=== PATIENT | female | born 1960 | race Caucasian/White ===

== ENCOUNTER 2016-12-29 14:10 | Inpatient (IN) | payer MEDICAID ==
[2016-12-29] MEDS ORDERED: POTASSIUM CHLORIDE LIQ 20 MEQ UDC PO PRN (16:24)
[2016-12-29] MEDS ORDERED: PHARMACY CONSULT - TPN XX SCH (16:24)
[2016-12-29] MEDS ORDERED: K-LYTE EFFERVESCENT PO PRN (16:24)
[2016-12-29] MEDS ORDERED: K-RIDER 10 MEQ/NS 100 ML 10 MEQ/100 ML BAG IV PRN (16:24)
[2016-12-29] MEDS ORDERED: NS 100 ML IV 100 ML IV ONE (17:07)
[2016-12-29] MEDS ORDERED: FORTAZ or TAZICEF INJ ONE (17:08)
[2016-12-29 17:21] LABS: LYMPHOCYTES # (AUTO) 0.4 X10^3/uL (1.3-2.9); MONOCYTES # (AUTO) 0.1 x10^3/uL (0.3-0.8); RED CELL DISTRIBUTION WIDTH 18.3 % (11.6-16.5)
[2016-12-29 17:25] LABS: ALBUMIN 2.7 g/dL (3.4-5.0); CALCIUM 8.2 mg/dL (8.5-10.1); COR CA(FOR HYPOALB) 9.2 mg/dL (8.5-10.1); CREATININE 1.38 mg/dL (0.55-1.02); TOTAL PROTEIN 7.1 g/dL (6.4-8.2)
[2016-12-29 17:26] LABS: BASOPHILS % (AUTO) 0.4 % (0.2-1.0); EOSINOPHILS % (AUTO) 2.2 % (0.9-2.9); HEMATOCRIT 27.6 % (36.0-47.0); HEMOGLOBIN 9.5 g/dL (12.0-16.0); LYMPHOCYTES % (AUTO) 18.3 % (21.0-51.0); MEAN CORPUSCULAR HEMOGLOBIN 35.2 pg (27.0-34.0); MEAN CORPUSCULAR HGB CONC 34.3 g/dL (33.0-35.0); MEAN CORPUSCULAR VOLUME 102.6 fL (80.0-100.0); MEAN PLATELET VOLUME 10.1 fL (7.4-11.0); NEUTROPHILS # (AUTO) 1.7 x10^3/uL (2.2-4.8); NEUTROPHILS % (AUTO) 74.1 % (42.0-75.0); PLATELET COUNT 128 X10^3/uL (150.0-450.0); RED BLOOD COUNT 2.69 X10^6/uL (3.5-5.4); WHITE BLOOD COUNT 2.3 X10^3/uL (3.6-10.0)
[2016-12-29] MEDS: FORTAZ or TAZICEF INJ 1 GM in NS 50 ML IV + SPIKE MINIBAG* 50 ML IV SCH ×2 (17:40→22:48)
[2016-12-29] MEDS: ALBUMIN HUMAN 25%- 100ML 100 ML IV SCH (17:41)
[2016-12-29] MEDS: K-DUR TAB 20 MEQ PO PRN (17:42)
[2016-12-29] MEDS: TYLENOL 325 MG TAB PO PRN ×2 (17:43→23:10)
[2016-12-29 17:45] LABS: BAND NEUTROPHILS % 1 % (0-10); PLATELET MORPHOLOGY COMMENT NORMAL (NORMAL)
[2016-12-29 17:46] LABS: ANISOCYTOSIS SLIGHT
[2016-12-29] MEDS: LEVAQUIN PREMIX IV 500 MG 500 MG/100 ML BAG IV SCH (17:49)
[2016-12-29] MEDS: NS 1000 ML 1,000 ML IV SCH (19:19)
[2016-12-29] MEDS ORDERED: SILVADENE TOP SCH (21:00)
[2016-12-29] MEDS ORDERED: POTASSIUM CHLORIDE LIQ 20 MEQ UDC PO ONE (22:36)
[2016-12-29 23:28] LABS: BILIRUBIN,URINE NEGATIVE (NEGATIVE); BLOOD/HEMOGLOBIN,URINE 2+ (NEGATIVE); GLUCOSE, URINE NEGATIVE (NEGATIVE); KETONES,URINE NEGATIVE (NEGATIVE); LEUKOCYTE ESTERASE ,URINE 1+ (NEGATIVE); NITRITES,URINE NEGATIVE (NEGATIVE); PROTEIN,URINE 2+ (NEGATIVE); UROBILINOGEN,URINE NORMAL (NORMAL)
[2016-12-30 00:03] LABS: APPEARANCE,URINE CLEAR (CLEAR); BACTERIA,URINE NEGATIVE /HPF (NEGATIVE); COLOR,URINE YELLOW (YELLOW); RBC,URINE 0-3 /HPF (NEGATIVE); SQUAMOUS EPITHELIAL CELL,UR RARE /HPF (NEGATIVE)
[2016-12-30] MEDS: NS 1000 ML 1,000 ML IV SCH (04:36)
[2016-12-30] MEDS: FORTAZ or TAZICEF INJ 1 GM in NS 50 ML IV + SPIKE MINIBAG* 50 ML IV SCH ×3 (05:22→21:59)
[2016-12-30 06:25] LABS: BASOPHILS % (AUTO) 0.4 % (0.2-1.0); EOSINOPHILS % (AUTO) 1.3 % (0.9-2.9); HEMATOCRIT 21.1 % (36.0-47.0); HEMOGLOBIN 7.4 g/dL (12.0-16.0); LYMPHOCYTES # (AUTO) 0.4 X10^3/uL (1.3-2.9); LYMPHOCYTES % (AUTO) 22.6 % (21.0-51.0); MEAN CORPUSCULAR HEMOGLOBIN 36.3 pg (27.0-34.0); MEAN CORPUSCULAR HGB CONC 34.9 g/dL (33.0-35.0); MEAN CORPUSCULAR VOLUME 104.1 fL (80.0-100.0); MEAN PLATELET VOLUME 9.8 fL (7.4-11.0); MONOCYTES # (AUTO) 0.1 x10^3/uL (0.3-0.8); NEUTROPHILS # (AUTO) 1.1 x10^3/uL (2.2-4.8); NEUTROPHILS % (AUTO) 68.7 % (42.0-75.0); PLATELET COUNT 111 X10^3/uL (150.0-450.0); RED BLOOD COUNT 2.02 X10^6/uL (3.5-5.4); RED CELL DISTRIBUTION WIDTH 17.8 % (11.6-16.5)
[2016-12-30 06:30] LABS: ALANINE AMINOTRANSFERASE 15 Units/L (12-78); ALBUMIN 2.5 g/dL (3.4-5.0); ALKALINE PHOSPHATASE 39 Units/L (46-116); ASPARTATE AMINO TRANSFERASE 14 Units/L (15-37); BLOOD UREA NITROGEN 24 mg/dL (7-18); CALCIUM 7.8 mg/dL (8.5-10.1); CARBON DIOXIDE 21.9 mmol/L (21-32); CHLORIDE 105 mmol/L (98-107); COR NA(FOR HYPERGLY) 139 mmol/L (136-145); CREATININE 1.19 mg/dL (0.55-1.02); SODIUM 137 mmol/L (136-145); TOTAL PROTEIN 6.1 g/dL (6.4-8.2); eGFR BLACK RACES > 60 (>60); eGFR NON BLACK RACES 50 (>60)
[2016-12-30 07:28] LABS: WHITE BLOOD COUNT 1.7 X10^3/uL (3.6-10.0)
[2016-12-30 07:29] LABS: BAND NEUTROPHILS % 4 % (0-10)
[2016-12-30 07:30] LABS: ANISOCYTOSIS SLIGHT; HYPOCHROMASIA 1+; PLATELET MORPHOLOGY COMMENT NORMAL (NORMAL)
[2016-12-30] MEDS: TYLENOL 325 MG TAB PO PRN ×3 (08:46→21:59)
[2016-12-30] MEDS: LEVAQUIN PREMIX IV 500 MG 500 MG/100 ML BAG IV SCH (08:47)
[2016-12-30] MEDS: ALBUMIN HUMAN 25%- 100ML 100 ML IV SCH (08:47)
[2016-12-30] MEDS ORDERED: NS 500 ML IV 500 ML IV ONE (09:01)
[2016-12-30] MEDS ORDERED: BENADRYL INJ 50 MG VIAL IVP PRN (09:01)
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
[2016-12-30] MEDS: K-DUR TAB 20 MEQ PO PRN (09:56)
[2016-12-30] MEDS ORDERED: NEUPOGEN SC NR (10:00)
[2016-12-30] MEDS ORDERED: ZANTAC PO PRN (16:21)
[2016-12-30] MEDS ORDERED: XANAX PO PRN (16:21)
[2016-12-30] MEDS ORDERED: PATIENT'S HOME MEDICATION (Ascorbic Acid [Vitamin C] 500 MG) PO SCH (16:30)
[2016-12-30] MEDS ORDERED: CYANOCOBALAMIN PO SCH (16:30)
[2016-12-30] MEDS ORDERED: PALBOCICLIB PO SCH (16:30)
[2016-12-30] MEDS ORDERED: LEXAPRO ONE (18:13)
[2016-12-30] MEDS: CLARITIN PO SCH (18:21)
[2016-12-30] MEDS: LIORESAL PO SCH ×2 (18:22→21:59)
[2016-12-30] MEDS: LEXAPRO PO SCH (18:22)
[2016-12-30] MEDS: LIPOSYN III 20% 250ML 250 ML IV SCH (22:00)
[2016-12-30] MEDS: CLINIMIX 4.25 %/10 % 1,000 ML with MVI INJ (ADULT) 10 ML, TRACE ELEMENTS INJ 10 ML, TPN... IV SCH ×5 (22:00)
[2016-12-30] MEDS: LIPITOR TAB 10 MG PO SCH (22:00)
[2016-12-31] MEDS: CLINIMIX 4.25 %/10 % 1,000 ML with MVI INJ (ADULT) 10 ML, TRACE ELEMENTS INJ 10 ML, TPN... IV SCH ×10 (01:16→18:13)
[2016-12-31] MEDS ORDERED: NS 500 ML IV 500 ML IV ONE (01:36)
[2016-12-31] MEDS: FORTAZ or TAZICEF INJ 1 GM in NS 50 ML IV + SPIKE MINIBAG* 50 ML IV SCH ×3 (05:16→21:46)
[2016-12-31] MEDS: LIORESAL PO SCH ×3 (06:22→21:40)
[2016-12-31 07:24] LABS: BILIRUBIN,URINE NEGATIVE (NEGATIVE); BLOOD/HEMOGLOBIN,URINE 3+ (NEGATIVE); GLUCOSE, URINE 3+ (NEGATIVE); KETONES,URINE NEGATIVE (NEGATIVE); LEUKOCYTE ESTERASE ,URINE 1+ (NEGATIVE); NITRITES,URINE NEGATIVE (NEGATIVE); PROTEIN,URINE 2+ (NEGATIVE); UROBILINOGEN,URINE NORMAL (NORMAL)
[2016-12-31 07:44] LABS: APPEARANCE,URINE CLEAR (CLEAR); COLOR,URINE YELLOW (YELLOW)
[2016-12-31 07:45] LABS: AMORPHOUS SEDIMENT,UR 1+ /HPF (NEGATIVE); BACTERIA,URINE NEGATIVE /HPF (NEGATIVE); HYALINE CASTS, URINE RARE /LPF (NEGATIVE); MUCUS,URINE MODERATE /HPF (NEGATIVE); SQUAMOUS EPITHELIAL CELL,UR RARE /HPF (NEGATIVE)
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
[2016-12-31] MEDS ORDERED: LEXAPRO ONE (08:26)
[2016-12-31] MEDS: LEVAQUIN PREMIX IV 500 MG 500 MG/100 ML BAG IV SCH (08:38)
[2016-12-31] MEDS: ALBUMIN HUMAN 25%- 100ML 100 ML IV SCH (08:39)
[2016-12-31] MEDS: CLARITIN PO SCH (08:39)
[2016-12-31] MEDS: VITAMIN B-12 PO SCH (08:39)
[2016-12-31] MEDS: LEXAPRO PO SCH (08:39)
[2016-12-31] MEDS: VITAMIN C PO SCH (08:39)
[2016-12-31] MEDS: ASPIRIN EC 81 MG PO SCH (08:39)
[2016-12-31 08:46] LABS: BLOOD UREA NITROGEN 17 mg/dL (7-18); CALCIUM 7.9 mg/dL (8.5-10.1); CARBON DIOXIDE 22.5 mmol/L (21-32); CHLORIDE 105 mmol/L (98-107); COR NA(FOR HYPERGLY) 141 mmol/L (136-145); CREATININE 0.97 mg/dL (0.55-1.02); SODIUM 137 mmol/L (136-145); eGFR BLACK RACES > 60 (>60); eGFR NON BLACK RACES > 60 (>60)
[2016-12-31 08:52] LABS: BASOPHILS % (AUTO) 0.3 % (0.2-1.0); EOSINOPHILS % (AUTO) 0.9 % (0.9-2.9); HEMATOCRIT 28.2 % (36.0-47.0); HEMOGLOBIN 9.9 g/dL (12.0-16.0); LYMPHOCYTES # (AUTO) 0.4 X10^3/uL (1.3-2.9); LYMPHOCYTES % (AUTO) 10.4 % (21.0-51.0); MEAN CORPUSCULAR HEMOGLOBIN 34.7 pg (27.0-34.0); MEAN CORPUSCULAR HGB CONC 35.2 g/dL (33.0-35.0); MEAN CORPUSCULAR VOLUME 98.7 fL (80.0-100.0); MEAN PLATELET VOLUME 9.9 fL (7.4-11.0); MONOCYTES # (AUTO) 0.1 x10^3/uL (0.3-0.8); MONOCYTES % (AUTO) 3.4 % (0.0-13.0); NEUTROPHILS # (AUTO) 3.3 x10^3/uL (2.2-4.8); PLATELET COUNT 132 X10^3/uL (150.0-450.0); RED BLOOD COUNT 2.86 X10^6/uL (3.5-5.4); RED CELL DISTRIBUTION WIDTH 22.2 % (11.6-16.5); WHITE BLOOD COUNT 3.9 X10^3/uL (3.6-10.0)
[2016-12-31] MEDS ORDERED: PATIENT'S HOME MEDICATION (Aspirin [Aspirin] 81 MG) PO SCH (09:00)
[2016-12-31 09:06] LABS: BAND NEUTROPHILS % 12 % (0-10)
[2016-12-31 09:07] LABS: ANISOCYTOSIS 2+; PLATELET MORPHOLOGY COMMENT NORMAL (NORMAL)
[2016-12-31 13:55] LABS: ALANINE AMINOTRANSFERASE 17 Units/L (12-78); ALBUMIN 2.5 g/dL (3.4-5.0); ALKALINE PHOSPHATASE 53 Units/L (46-116); ASPARTATE AMINO TRANSFERASE 18 Units/L (15-37); COR CA(FOR HYPOALB) 9.1 mg/dL (8.5-10.1); TOTAL PROTEIN 6.5 g/dL (6.4-8.2)
[2016-12-31] MEDS: K-DUR TAB 20 MEQ PO PRN (18:06)
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
[2016-12-31] MEDS: LIPITOR TAB 10 MG PO SCH (21:40)
[2016-12-31] MEDS: LIPOSYN III 20% 250ML 250 ML IV SCH (21:45)
[2017-01-01 04:36] LABS: ALANINE AMINOTRANSFERASE 16 Units/L (12-78); ALBUMIN 2.4 g/dL (3.4-5.0); ALKALINE PHOSPHATASE 61 Units/L (46-116); ASPARTATE AMINO TRANSFERASE 12 Units/L (15-37); BLOOD UREA NITROGEN 15 mg/dL (7-18); CALCIUM 8.5 mg/dL (8.5-10.1); CARBON DIOXIDE 25.4 mmol/L (21-32); CHLORIDE 108 mmol/L (98-107); COR CA(FOR HYPOALB) 9.8 mg/dL (8.5-10.1); COR NA(FOR HYPERGLY) 145 mmol/L (136-145); CREATININE 0.94 mg/dL (0.55-1.02); SODIUM 140 mmol/L (136-145); TOTAL PROTEIN 6.3 g/dL (6.4-8.2); eGFR BLACK RACES > 60 (>60); eGFR NON BLACK RACES > 60 (>60)
[2017-01-01 04:54] LABS: BASOPHILS % (AUTO) 0.5 % (0.2-1.0); EOSINOPHILS % (AUTO) 1.2 % (0.9-2.9); HEMATOCRIT 26.8 % (36.0-47.0); HEMOGLOBIN 9.3 g/dL (12.0-16.0); LYMPHOCYTES # (AUTO) 0.7 X10^3/uL (1.3-2.9); LYMPHOCYTES % (AUTO) 18.1 % (21.0-51.0); MEAN CORPUSCULAR HEMOGLOBIN 34.6 pg (27.0-34.0); MEAN CORPUSCULAR HGB CONC 34.9 g/dL (33.0-35.0); MEAN CORPUSCULAR VOLUME 99.3 fL (80.0-100.0); MEAN PLATELET VOLUME 10.1 fL (7.4-11.0); MONOCYTES # (AUTO) 0.2 x10^3/uL (0.3-0.8); MONOCYTES % (AUTO) 4.7 % (0.0-13.0); NEUTROPHILS # (AUTO) 2.9 x10^3/uL (2.2-4.8); NEUTROPHILS % (AUTO) 75.5 % (42.0-75.0); PLATELET COUNT 125 X10^3/uL (150.0-450.0); RED CELL DISTRIBUTION WIDTH 21.6 % (11.6-16.5); WHITE BLOOD COUNT 3.8 X10^3/uL (3.6-10.0)
[2017-01-01] MEDS: LIORESAL PO SCH ×3 (05:20→21:13)
[2017-01-01] MEDS: FORTAZ or TAZICEF INJ 1 GM in NS 50 ML IV + SPIKE MINIBAG* 50 ML IV SCH (05:20)
[2017-01-01 05:28] LABS: BAND NEUTROPHILS % 13 % (0-10)
[2017-01-01 05:29] LABS: ANISOCYTOSIS 1+; PLATELET MORPHOLOGY COMMENT NORMAL (NORMAL)
[2017-01-01 06:11] VITALS: BMI 34.7
[2017-01-01] MEDS: CLINIMIX 4.25 %/10 % 1,000 ML with MVI INJ (ADULT) 10 ML, TRACE ELEMENTS INJ 10 ML, TPN... IV SCH ×10 (06:16→06:17)
[2017-01-01] MEDS: HumuLIN R SUBCUT PRN (06:29)
[2017-01-01] MEDS ORDERED: DEXTROSE 10% 1,000 ML IV PRN (07:08)
[2017-01-01 07:39] LABS: MAGNESIUM 1.7 mg/dL (1.7-2.9); PHOSPHORUS 1.9 mg/dL (2.6-4.7)
[2017-01-01] MEDS ORDERED: LEXAPRO ONE (08:05)
[2017-01-01] MEDS: ASPIRIN EC 81 MG PO SCH (08:52)
[2017-01-01] MEDS: VITAMIN C PO SCH (08:52)
[2017-01-01] MEDS: VITAMIN B-12 PO SCH (08:52)
[2017-01-01] MEDS: CLARITIN PO SCH (08:52)
[2017-01-01] MEDS: LEXAPRO PO SCH (08:53)
[2017-01-01] MEDS: LEVAQUIN PREMIX IV 500 MG 500 MG/100 ML BAG IV SCH (08:53)
[2017-01-01] MEDS: ALBUMIN HUMAN 25%- 100ML 100 ML IV SCH (08:55)
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
[2017-01-01] MEDS: ZYVOX 600MG IV 600 MG/300 ML BAG IV SCH ×2 (11:13→21:06)
[2017-01-01] MEDS: TYLENOL 325 MG TAB PO PRN ×2 (11:22→19:59)
[2017-01-01] MEDS: ZESTORETIC 10/ 12.5MG PO SCH (18:22)
[2017-01-01] MEDS: ZOFRAN INJ 4 MG VIAL IVP PRN (19:58)
[2017-01-01] MEDS: SNACK - Diabetic Appropriate PO SCH (20:15)
[2017-01-01] MEDS: COUMADIN TAB 5 MG PO SCH (21:13)
[2017-01-01] MEDS: LIPITOR TAB 10 MG PO SCH (21:13)
[2017-01-01] MEDS: LIPOSYN III 20% 250ML 250 ML IV SCH (22:50)
[2017-01-01] MEDS: NS 1000 ML 1,000 ML IV SCH (23:00)
[2017-01-02] MEDS: SNACK - Diabetic Appropriate PO SCH ×2 (01:55→21:32)
[2017-01-02] MEDS: HumuLIN R SUBCUT PRN ×3 (02:08→21:30)
[2017-01-02 05:10] LABS: BASOPHILS % (AUTO) 0.8 % (0.2-1.0); HEMATOCRIT 25.3 % (36.0-47.0); LYMPHOCYTES # (AUTO) 0.6 X10^3/uL (1.3-2.9); MEAN CORPUSCULAR HEMOGLOBIN 35.1 pg (27.0-34.0); MEAN CORPUSCULAR HGB CONC 35.4 g/dL (33.0-35.0); MEAN CORPUSCULAR VOLUME 99.1 fL (80.0-100.0); MONOCYTES # (AUTO) 0.3 x10^3/uL (0.3-0.8); MONOCYTES % (AUTO) 7.2 % (0.0-13.0); NEUTROPHILS # (AUTO) 2.8 x10^3/uL (2.2-4.8); PLATELET COUNT 157 X10^3/uL (150.0-450.0); RED BLOOD COUNT 2.55 X10^6/uL (3.5-5.4); RED CELL DISTRIBUTION WIDTH 21.2 % (11.6-16.5); WHITE BLOOD COUNT 3.8 X10^3/uL (3.6-10.0)
[2017-01-02 05:27] LABS: ALANINE AMINOTRANSFERASE 16 Units/L (12-78); ALBUMIN 2.6 g/dL (3.4-5.0); ALKALINE PHOSPHATASE 60 Units/L (46-116); ASPARTATE AMINO TRANSFERASE 15 Units/L (15-37); BLOOD UREA NITROGEN 14 mg/dL (7-18); CALCIUM 8.9 mg/dL (8.5-10.1); CHLORIDE 103 mmol/L (98-107); COR NA(FOR HYPERGLY) 142 mmol/L (136-145); SODIUM 138 mmol/L (136-145); TOTAL PROTEIN 6.6 g/dL (6.4-8.2); eGFR BLACK RACES > 60 (>60); eGFR NON BLACK RACES > 60 (>60)
[2017-01-02 05:54] LABS: PLATELET MORPHOLOGY COMMENT NORMAL (NORMAL)
[2017-01-02 05:55] LABS: ANISOCYTOSIS 1+
[2017-01-02] MEDS: LIORESAL PO SCH ×3 (06:06→21:28)
[2017-01-02] MEDS ORDERED: LEXAPRO ONE (08:48)
[2017-01-02] MEDS: ALBUMIN HUMAN 25%- 100ML 100 ML IV SCH (09:00)
[2017-01-02] MEDS: CLARITIN PO SCH (09:53)
[2017-01-02] MEDS: ASPIRIN EC 81 MG PO SCH (09:53)
[2017-01-02] MEDS: ZYVOX 600MG IV 600 MG/300 ML BAG IV SCH (09:53)
[2017-01-02] MEDS: VITAMIN B-12 PO SCH (09:53)
[2017-01-02] MEDS: ZESTORETIC 10/ 12.5MG PO SCH (09:53)
[2017-01-02] MEDS: LEXAPRO PO SCH (09:54)
[2017-01-02] MEDS: VITAMIN C PO SCH (09:54)
[2017-01-02] MEDS ORDERED: NS 500 ML IV 500 ML IV ONE (10:01)
[2017-01-02] MEDS: VANCOMYCIN 1 GM PREMIX (ADDVANTAGE) 250 ML IV SCH ×2 (10:29→21:28)
[2017-01-02] MEDS: RIFADIN PO SCH ×2 (11:12→21:29)
[2017-01-02] MEDS: CLINIMIX 4.25 %/10 % 1,000 ML with MVI INJ (ADULT) 10 ML, TRACE ELEMENTS INJ 10 ML, TPN... IV SCH ×5 (16:45)
[2017-01-02] MEDS: NS 500 ML IV 500 ML IV SCH (16:46)
[2017-01-02] MEDS: LIPITOR TAB 10 MG PO SCH (21:29)
[2017-01-02] MEDS: COUMADIN TAB 2.5 MG PO SCH (21:30)
[2017-01-02] MEDS: LIPOSYN III 20% 250ML 250 ML IV SCH (21:31)
[2017-01-03] MEDS: NS 1000 ML 1,000 ML IV SCH (02:56)
[2017-01-03 05:29] LABS: ALANINE AMINOTRANSFERASE 10 Units/L (12-78); ALBUMIN 2.7 g/dL (3.4-5.0); ALKALINE PHOSPHATASE 68 Units/L (46-116); ASPARTATE AMINO TRANSFERASE 12 Units/L (15-37); BLOOD UREA NITROGEN 14 mg/dL (7-18); CALCIUM 9.1 mg/dL (8.5-10.1); CARBON DIOXIDE 29.2 mmol/L (21-32); CHLORIDE 103 mmol/L (98-107); COR CA(FOR HYPOALB) 10.1 mg/dL (8.5-10.1); COR NA(FOR HYPERGLY) 141 mmol/L (136-145); CREATININE 0.77 mg/dL (0.55-1.02); SODIUM 139 mmol/L (136-145); TOTAL PROTEIN 6.8 g/dL (6.4-8.2); eGFR BLACK RACES > 60 (>60); eGFR NON BLACK RACES > 60 (>60)
[2017-01-03] MEDS: CLINIMIX 4.25 %/10 % 1,000 ML with MVI INJ (ADULT) 10 ML, TRACE ELEMENTS INJ 10 ML, TPN... IV SCH ×10 (05:40→22:33)
[2017-01-03] MEDS: HumuLIN R SUBCUT PRN (05:52)
[2017-01-03] MEDS: LIORESAL PO SCH ×3 (05:53→22:31)
[2017-01-03 06:11] LABS: EOSINOPHILS % (AUTO) 1.3 % (0.9-2.9); HEMATOCRIT 26.7 % (36.0-47.0); HEMOGLOBIN 9.4 g/dL (12.0-16.0); LYMPHOCYTES # (AUTO) 0.7 X10^3/uL (1.3-2.9); LYMPHOCYTES % (AUTO) 20.1 % (21.0-51.0); MEAN CORPUSCULAR HEMOGLOBIN 34.9 pg (27.0-34.0); MEAN CORPUSCULAR HGB CONC 35.2 g/dL (33.0-35.0); MEAN CORPUSCULAR VOLUME 99.1 fL (80.0-100.0); MEAN PLATELET VOLUME 9.6 fL (7.4-11.0); MONOCYTES # (AUTO) 0.4 x10^3/uL (0.3-0.8); MONOCYTES % (AUTO) 10.6 % (0.0-13.0); NEUTROPHILS # (AUTO) 2.5 x10^3/uL (2.2-4.8); PLATELET COUNT 150 X10^3/uL (150.0-450.0); RED CELL DISTRIBUTION WIDTH 20.9 % (11.6-16.5); WHITE BLOOD COUNT 3.7 X10^3/uL (3.6-10.0)
[2017-01-03 06:46] LABS: ANISOCYTOSIS 1+; PLATELET MORPHOLOGY COMMENT NORMAL (NORMAL)
[2017-01-03] MEDS ORDERED: LEXAPRO ONE (08:23)
[2017-01-03] MEDS: VANCOMYCIN 1 GM PREMIX (ADDVANTAGE) 250 ML IV SCH ×2 (09:47→22:31)
[2017-01-03] MEDS: ALBUMIN HUMAN 25%- 100ML 100 ML IV SCH (09:48)
[2017-01-03] MEDS: CLARITIN PO SCH (09:50)
[2017-01-03] MEDS: ASPIRIN EC 81 MG PO SCH (09:50)
[2017-01-03] MEDS: ZESTORETIC 10/ 12.5MG PO SCH (09:50)
[2017-01-03] MEDS: VITAMIN B-12 PO SCH (09:50)
[2017-01-03] MEDS: VITAMIN C PO SCH (09:50)
[2017-01-03] MEDS: LEXAPRO PO SCH (09:51)
[2017-01-03] MEDS: ZOFRAN INJ 4 MG VIAL IVP PRN (11:41)
[2017-01-03] MEDS: TYLENOL 325 MG TAB PO PRN (15:13)
[2017-01-03] MEDS: RIFADIN PO SCH ×2 (15:14→23:10)
[2017-01-03] MEDS: NS 500 ML IV 500 ML IV SCH (15:15)
[2017-01-03 21:18] LABS: CREATININE 0.81 mg/dL (0.55-1.02); VANCOMYCIN,TROUGH 9.2 ug/mL (15-20)
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
[2017-01-03] MEDS: LIPITOR TAB 10 MG PO SCH (22:30)
[2017-01-03] MEDS: COUMADIN TAB 5 MG PO SCH (22:30)
[2017-01-03] MEDS: LIPOSYN III 20% 250ML 250 ML IV SCH (23:10)
[2017-01-03] MEDS: SNACK - Diabetic Appropriate PO SCH (23:59)
[2017-01-04 04:53] LABS: BASOPHILS # (AUTO) 0.1 X10^3/uL (0.0-0.1); BASOPHILS % (AUTO) 1.3 % (0.2-1.0); EOSINOPHILS % (AUTO) 1.1 % (0.9-2.9); HEMATOCRIT 28.3 % (36.0-47.0); HEMOGLOBIN 9.8 g/dL (12.0-16.0); LYMPHOCYTES # (AUTO) 0.7 X10^3/uL (1.3-2.9); LYMPHOCYTES % (AUTO) 17.4 % (21.0-51.0); MEAN CORPUSCULAR HEMOGLOBIN 34.6 pg (27.0-34.0); MEAN CORPUSCULAR HGB CONC 34.8 g/dL (33.0-35.0); MEAN CORPUSCULAR VOLUME 99.3 fL (80.0-100.0); MEAN PLATELET VOLUME 10.3 fL (7.4-11.0); MONOCYTES # (AUTO) 0.4 x10^3/uL (0.3-0.8); MONOCYTES % (AUTO) 10.6 % (0.0-13.0); NEUTROPHILS # (AUTO) 2.9 x10^3/uL (2.2-4.8); NEUTROPHILS % (AUTO) 69.6 % (42.0-75.0); PLATELET COUNT 174 X10^3/uL (150.0-450.0); RED BLOOD COUNT 2.85 X10^6/uL (3.5-5.4); RED CELL DISTRIBUTION WIDTH 20.5 % (11.6-16.5); WHITE BLOOD COUNT 4.2 X10^3/uL (3.6-10.0)
[2017-01-04 05:03] LABS: ALANINE AMINOTRANSFERASE 15 Units/L (12-78); ALKALINE PHOSPHATASE 71 Units/L (46-116); ASPARTATE AMINO TRANSFERASE 12 Units/L (15-37); BLOOD UREA NITROGEN 13 mg/dL (7-18); CALCIUM 9.4 mg/dL (8.5-10.1); CARBON DIOXIDE 28.3 mmol/L (21-32); CHLORIDE 100 mmol/L (98-107); COR CA(FOR HYPOALB) 10.2 mg/dL (8.5-10.1); COR NA(FOR HYPERGLY) 138 mmol/L (136-145); CREATININE 0.82 mg/dL (0.55-1.02); SODIUM 136 mmol/L (136-145); TOTAL PROTEIN 7.3 g/dL (6.4-8.2); eGFR BLACK RACES > 60 (>60); eGFR NON BLACK RACES > 60 (>60)
[2017-01-04 05:16] LABS: MAGNESIUM 1.7 mg/dL (1.7-2.9); PHOSPHORUS 3.7 mg/dL (2.6-4.7)
[2017-01-04] MEDS: LIORESAL PO SCH ×3 (05:32→22:12)
[2017-01-04] MEDS: NS 1000 ML 1,000 ML IV SCH (05:34)
[2017-01-04 05:41] LABS: ANISOCYTOSIS 1+; PLATELET MORPHOLOGY COMMENT NORMAL (NORMAL)
[2017-01-04] MEDS: HumuLIN R SUBCUT PRN (06:09)
[2017-01-04] MEDS ORDERED: LEXAPRO ONE (08:48)
[2017-01-04] MEDS: VANCOMYCIN 1 GM PREMIX (ADDVANTAGE) 250 ML IV SCH ×2 (09:15→21:53)
[2017-01-04] MEDS: ALBUMIN HUMAN 25%- 100ML 100 ML IV SCH (09:15)
[2017-01-04] MEDS: VITAMIN B-12 PO SCH (09:16)
[2017-01-04] MEDS: CLARITIN PO SCH (09:16)
[2017-01-04] MEDS: RIFADIN PO SCH ×2 (09:16→23:32)
[2017-01-04] MEDS: ZESTORETIC 10/ 12.5MG PO SCH (09:16)
[2017-01-04] MEDS: VITAMIN C PO SCH (09:16)
[2017-01-04] MEDS: LEXAPRO PO SCH (09:17)
[2017-01-04] MEDS: ASPIRIN EC 81 MG PO SCH (09:17)
[2017-01-04] MEDS ORDERED: ULTRAM PO PRN (09:18)
[2017-01-04] MEDS: ZOFRAN INJ 4 MG VIAL IVP PRN (09:26)
[2017-01-04] MEDS: TYLENOL 325 MG TAB PO PRN ×2 (11:11→22:21)
[2017-01-04] MEDS: NS 500 ML IV 500 ML IV SCH (12:39)
[2017-01-04] MEDS: CLINIMIX 4.25 %/10 % 1,000 ML with MVI INJ (ADULT) 10 ML, TRACE ELEMENTS INJ 10 ML, TPN... IV SCH ×15 (12:40→23:32)
[2017-01-04] MEDS: ZOVIRAX TOP SCH (15:32)
[2017-01-04] MEDS: LIPOSYN III 20% 250ML 250 ML IV SCH (21:54)
[2017-01-04] MEDS: LIPITOR TAB 10 MG PO SCH (22:09)
[2017-01-04] MEDS: COUMADIN TAB 5 MG PO SCH (22:09)
[2017-01-04] MEDS: SNACK - Diabetic Appropriate PO SCH (23:31)
[2017-01-04] MEDS ORDERED: LANTISEPTIC TOP PRN (23:46)
[2017-01-05] MEDS: ZOVIRAX TOP SCH ×3 (01:53→12:13)
[2017-01-05 05:19] LABS: BASOPHILS # (AUTO) 0.1 X10^3/uL (0.0-0.1); BASOPHILS % (AUTO) 1.1 % (0.2-1.0); EOSINOPHILS # (AUTO) 0.1 x10^3/uL (0.0-0.2); HEMOGLOBIN 8.9 g/dL (12.0-16.0); LYMPHOCYTES % (AUTO) 13.8 % (21.0-51.0); MEAN CORPUSCULAR HEMOGLOBIN 34.5 pg (27.0-34.0); MEAN CORPUSCULAR HGB CONC 34.3 g/dL (33.0-35.0); MEAN CORPUSCULAR VOLUME 100.4 fL (80.0-100.0); MEAN PLATELET VOLUME 10.1 fL (7.4-11.0); MONOCYTES # (AUTO) 0.7 x10^3/uL (0.3-0.8); MONOCYTES % (AUTO) 9.4 % (0.0-13.0); NEUTROPHILS # (AUTO) 5.2 x10^3/uL (2.2-4.8); NEUTROPHILS % (AUTO) 74.7 % (42.0-75.0); PLATELET COUNT 168 X10^3/uL (150.0-450.0); RED BLOOD COUNT 2.59 X10^6/uL (3.5-5.4); RED CELL DISTRIBUTION WIDTH 20.1 % (11.6-16.5); WHITE BLOOD COUNT 6.9 X10^3/uL (3.6-10.0)
[2017-01-05] MEDS: LIORESAL PO SCH ×3 (05:19→21:46)
[2017-01-05 05:30] LABS: ALANINE AMINOTRANSFERASE 17 Units/L (12-78); ALKALINE PHOSPHATASE 80 Units/L (46-116); ASPARTATE AMINO TRANSFERASE 13 Units/L (15-37); BLOOD UREA NITROGEN 12 mg/dL (7-18); CARBON DIOXIDE 27.4 mmol/L (21-32); CHLORIDE 98 mmol/L (98-107); COR CA(FOR HYPOALB) 9.8 mg/dL (8.5-10.1); COR NA(FOR HYPERGLY) 137 mmol/L (136-145); CREATININE 0.81 mg/dL (0.55-1.02); SODIUM 134 mmol/L (136-145); eGFR BLACK RACES > 60 (>60); eGFR NON BLACK RACES > 60 (>60)
[2017-01-05] MEDS: NS 1000 ML 1,000 ML IV SCH (05:37)
[2017-01-05] MEDS: HumuLIN R SUBCUT PRN (05:48)
[2017-01-05 06:55] LABS: PLATELET MORPHOLOGY COMMENT NORMAL (NORMAL)
[2017-01-05 06:56] LABS: ANISOCYTOSIS SLIGHT
[2017-01-05] MEDS ORDERED: LEXAPRO ONE (08:17)
[2017-01-05] MEDS: ASPIRIN EC 81 MG PO SCH (09:36)
[2017-01-05] MEDS: CLARITIN PO SCH (09:36)
[2017-01-05] MEDS: LEXAPRO PO SCH (09:36)
[2017-01-05] MEDS: VANCOMYCIN 1 GM PREMIX (ADDVANTAGE) 250 ML IV SCH ×2 (09:36→23:17)
[2017-01-05] MEDS: ALBUMIN HUMAN 25%- 100ML 100 ML IV SCH (09:36)
[2017-01-05] MEDS: ZESTORETIC 10/ 12.5MG PO SCH (09:36)
[2017-01-05] MEDS: VITAMIN B-12 PO SCH (09:36)
[2017-01-05] MEDS: VITAMIN C PO SCH (09:36)
[2017-01-05] MEDS: RIFADIN PO SCH ×2 (09:37→23:16)
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
[2017-01-05] MEDS: NS 500 ML IV 500 ML IV SCH (12:14)
[2017-01-05] MEDS: CLINIMIX 4.25 %/10 % 1,000 ML with MVI INJ (ADULT) 10 ML, TRACE ELEMENTS INJ 10 ML, TPN... IV SCH ×10 (17:48→23:00)
[2017-01-05 20:47] LABS: CREATININE 0.76 mg/dL (0.55-1.02); VANCOMYCIN,TROUGH 10.4 ug/mL (15-20)
[2017-01-05] MEDS: COUMADIN TAB 2.5 MG PO SCH (21:46)
[2017-01-05] MEDS: SNACK - Diabetic Appropriate PO SCH (21:47)
[2017-01-05] MEDS: LIPITOR TAB 10 MG PO SCH (21:48)
[2017-01-05] MEDS: LIPOSYN III 20% 250ML 250 ML IV SCH (22:10)
[2017-01-06] MEDS: ZOVIRAX TOP SCH ×2 (01:30→08:09)
[2017-01-06] MEDS: HumuLIN R SUBCUT PRN (05:55)
[2017-01-06] MEDS: LIORESAL PO SCH (05:55)
[2017-01-06 06:12] LABS: BASOPHILS # (AUTO) 0.1 X10^3/uL (0.0-0.1); BASOPHILS % (AUTO) 1.1 % (0.2-1.0); EOSINOPHILS # (AUTO) 0.1 x10^3/uL (0.0-0.2); HEMATOCRIT 25.8 % (36.0-47.0); LYMPHOCYTES % (AUTO) 12.3 % (21.0-51.0); MEAN CORPUSCULAR HEMOGLOBIN 35.1 pg (27.0-34.0); MEAN CORPUSCULAR HGB CONC 35.1 g/dL (33.0-35.0); MEAN CORPUSCULAR VOLUME 100.1 fL (80.0-100.0); MEAN PLATELET VOLUME 10.4 fL (7.4-11.0); MONOCYTES # (AUTO) 0.6 x10^3/uL (0.3-0.8); MONOCYTES % (AUTO) 8.1 % (0.0-13.0); NEUTROPHILS # (AUTO) 6.1 x10^3/uL (2.2-4.8); NEUTROPHILS % (AUTO) 77.5 % (42.0-75.0); PLATELET COUNT 181 X10^3/uL (150.0-450.0); RED BLOOD COUNT 2.57 X10^6/uL (3.5-5.4); RED CELL DISTRIBUTION WIDTH 19.8 % (11.6-16.5); WHITE BLOOD COUNT 7.9 X10^3/uL (3.6-10.0)
[2017-01-06 06:24] LABS: ALANINE AMINOTRANSFERASE 16 Units/L (12-78); ALBUMIN 3.1 g/dL (3.4-5.0); ALKALINE PHOSPHATASE 78 Units/L (46-116); ASPARTATE AMINO TRANSFERASE 16 Units/L (15-37); BLOOD UREA NITROGEN 14 mg/dL (7-18); CARBON DIOXIDE 27.3 mmol/L (21-32); CHLORIDE 100 mmol/L (98-107); COR CA(FOR HYPOALB) 9.7 mg/dL (8.5-10.1); COR NA(FOR HYPERGLY) 140 mmol/L (136-145); CREATININE 0.82 mg/dL (0.55-1.02); SODIUM 137 mmol/L (136-145); TOTAL PROTEIN 7.2 g/dL (6.4-8.2); eGFR BLACK RACES > 60 (>60); eGFR NON BLACK RACES > 60 (>60)
[2017-01-06 06:33] LABS: PLATELET MORPHOLOGY COMMENT NORMAL (NORMAL)
[2017-01-06] MEDS ORDERED: LEXAPRO ONE (07:28)
[2017-01-06] MEDS: ALBUMIN HUMAN 25%- 100ML 100 ML IV SCH (08:07)
[2017-01-06] MEDS: NS 1000 ML 1,000 ML IV SCH (08:07)
[2017-01-06] MEDS: VANCOMYCIN 1 GM PREMIX (ADDVANTAGE) 250 ML IV SCH (08:07)
[2017-01-06] MEDS: VITAMIN C PO SCH (08:08)
[2017-01-06] MEDS: ZESTORETIC 10/ 12.5MG PO SCH (08:09)
[2017-01-06] MEDS: VITAMIN B-12 PO SCH (08:09)
[2017-01-06] MEDS: LEXAPRO PO SCH (08:09)
[2017-01-06] MEDS: CLARITIN PO SCH (08:10)
[2017-01-06] MEDS: ASPIRIN EC 81 MG PO SCH (08:10)
[2017-01-06 12:10] VITALS: BP 123/55
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
== END 2017-01-06 12:05 | disposition home or self-care (01) | DRG 640 ==
LOC: OBSVTOIN 14:10 → MED/SURG 14:10
PROVIDERS: ADMIT Internal Medicine; ATTEND Internal Medicine
PROC: 30233N1 Transfusion of Nonautologous Red Blood Cells into Peripheral Vein, Percutaneous Approach (ICD-10-PCS; principal; 2016-12-30)
PROC: 30233N1 Transfusion of Nonautologous Red Blood Cells into Peripheral Vein, Percutaneous Approach (ICD-10-PCS; 2016-12-31)
DX: E86.0 Dehydration (principal); D61.810 Antineoplastic chemotherapy induced pancytopenia; A41.02 Sepsis due to Methicillin resistant Staphylococcus aureus; C78.7 Secondary malignant neoplasm of liver and intrahepatic bile duct; C78.00 Secondary malignant neoplasm of unspecified lung; C79.51 Secondary malignant neoplasm of bone; G82.20 Paraplegia, unspecified; R06.02 Shortness of breath; B00.1 Herpesviral vesicular dermatitis; T45.1X5A Adverse effect of antineoplastic and immunosuppressive drugs, initial encounter; D64.89 Other specified anemias; R50.9 Fever, unspecified; E87.6 Hypokalemia; Z85.3 Personal history of malignant neoplasm of breast; Z87.440 Personal history of urinary (tract) infections; L89.219 Pressure ulcer of right hip, unspecified stage; E78.2 Mixed hyperlipidemia; B95.62 Methicillin resistant Staphylococcus aureus infection as the cause of diseases classified elsewhere; F41.8 Other specified anxiety disorders; F32.89 Other specified depressive episodes; R25.2 Cramp and spasm; Z87.39 Personal history of other diseases of the musculoskeletal system and connective tissue
CPT/HCPCS: 36415; 36430; 80053; 80202; 81001; 82565; 83735; 84100; 84132; 84134; 84478; 85025; 85610; 85730; 86850; 86900; 86901; 86922; 87040; 87077; 87186; A4216; A4222; B4189; P9016; P9047; J0713; J1200; J1815; J1956; J2020; J2405; J3370

== ENCOUNTER 2018-02-12 10:21 | Inpatient (IN) ==
[2018-02-12] MEDS ORDERED: NS 500 ML IV 500 ML IV ONE (14:23)
[2018-02-12] MEDS ORDERED: PHARMACY CONSULT - TPN XX SCH (14:23)
[2018-02-12] MEDS ORDERED: ANCEF VIAL 1 GRAM IVP SCH (14:23)
[2018-02-12 14:53] LABS: BASOPHILS # (AUTO) 0.1 X10^3/uL (0.0-0.1); BASOPHILS % (AUTO) 0.7 % (0.2-1.0); EOSINOPHILS # (AUTO) 0.1 x10^3/uL (0.0-0.2); EOSINOPHILS % (AUTO) 0.9 % (0.9-2.9); HEMATOCRIT 28.6 % (36.0-47.0); HEMOGLOBIN 8.9 g/dL (12.0-16.0); LYMPHOCYTES # (AUTO) 1.4 X10^3/uL (1.3-2.9); LYMPHOCYTES % (AUTO) 11.5 % (21.0-51.0); MEAN CORPUSCULAR HEMOGLOBIN 25.5 pg (27.0-34.0); MEAN CORPUSCULAR HGB CONC 31.2 g/dL (33.0-35.0); MEAN CORPUSCULAR VOLUME 81.8 fL (80.0-100.0); MEAN PLATELET VOLUME 8.7 fL (7.4-11.0); MONOCYTES # (AUTO) 0.9 x10^3/uL (0.3-0.8); MONOCYTES % (AUTO) 7.6 % (0.0-13.0); NEUTROPHILS # (AUTO) 9.5 x10^3/uL (2.2-4.8); NEUTROPHILS % (AUTO) 79.3 % (42.0-75.0); PLATELET COUNT 445 X10^3/uL (150.0-450.0); RED BLOOD COUNT 3.49 X10^6/uL (3.5-5.4); RED CELL DISTRIBUTION WIDTH 17.6 % (11.6-16.5); WHITE BLOOD COUNT 11.9 X10^3/uL (3.6-10.0)
[2018-02-12 15:04] LABS: ALANINE AMINOTRANSFERASE 10 Units/L (12-78); ALBUMIN 2.9 g/dL (3.4-5.0); ALKALINE PHOSPHATASE 101 Units/L (46-116); ASPARTATE AMINO TRANSFERASE 25 Units/L (15-37); BLOOD UREA NITROGEN 11 mg/dL (7-18); CALCIUM 8.5 mg/dL (8.5-10.1); CARBON DIOXIDE 22.8 mmol/L (21-32); CHLORIDE 100 mmol/L (98-107); COR CA(FOR HYPOALB) 9.4 mg/dL (8.5-10.1); CREATININE 0.91 mg/dL (0.55-1.02); SODIUM 137 mmol/L (136-145); TOTAL PROTEIN 8.3 g/dL (6.4-8.2); eGFR NON BLACK RACES > 60 (>60)
[2018-02-12 15:12] LABS: ANISOCYTOSIS SLIGHT; HYPOCHROMASIA SLIGHT; PLATELET MORPHOLOGY COMMENT NORMAL (NORMAL)
[2018-02-12] MEDS: ALBUMIN HUMAN 25%- 100 ML 100 ML IV SCH (15:37)
[2018-02-12] MEDS: NS 1000 ML 1,000 ML IV SCH ×2 (15:37→23:23)
--- NOTE | 2018-02-12 15:38 | RAD ---
Exam: Portable chest History: 57-year-old female with shortness of breath. Comparison: Previous chest radiograph from 03/10/2016 Findings: A right chest wall port is again seen with the tip of the catheter extending to the caval atrial junction. Heart size and pulmonary vasculature are normal. Lungs are clear with no infiltrate or significant effusion either side. Surgical fusion hardware is seen in the lower thoracic/upper lumbar spine Impression: Stable exam with no acute cardiopulmonary abnormality seen Reported By:
[2018-02-12] MEDS: ANCEF 1 GRAM IV PREMIX IV SCH (15:59)
[2018-02-12] MEDS ORDERED: PROCALAMINE 3 % 1,000 ML IV SCH (16:00)
[2018-02-12 17:06] LABS: BILIRUBIN,URINE NEGATIVE (NEGATIVE); BLOOD/HEMOGLOBIN,URINE 3+ (NEGATIVE); GLUCOSE, URINE NEGATIVE (NEGATIVE); KETONES,URINE NEGATIVE (NEGATIVE); LEUKOCYTE ESTERASE ,URINE 2+ (NEGATIVE); NITRITES,URINE NEGATIVE (NEGATIVE); PROTEIN,URINE 2+ (NEGATIVE); UROBILINOGEN,URINE NORMAL (NORMAL)
[2018-02-12 17:12] LABS: APPEARANCE,URINE SLIGHTLY HAZY (CLEAR); COLOR,URINE YELLOW (YELLOW)
[2018-02-12 17:13] LABS: AMORPHOUS SEDIMENT,UR 2+ /HPF (NEGATIVE); BACTERIA,URINE 1+ /HPF (NEGATIVE); HYALINE CASTS, URINE RARE /LPF (NEGATIVE); MUCUS,URINE RARE /HPF (NEGATIVE); SQUAMOUS EPITHELIAL CELL,UR MODERATE /HPF (NEGATIVE)
[2018-02-12] MEDS ORDERED: POTASSIUM CHL 40 MEQ/NS 0.45% 500 ML IV PRN (18:15)
[2018-02-12] MEDS ORDERED: POTASSIUM CHLORIDE LIQ 20 MEQ UDC PO PRN (18:15)
[2018-02-12] MEDS ORDERED: K-RIDER 10 MEQ/NS 100 ML 10 MEQ/100 ML BAG IV PRN (18:15)
[2018-02-12] MEDS ORDERED: MICRO K EXTEN CAP 10 MEQ PO PRN (18:15)
[2018-02-12] MEDS ORDERED: K-DUR TAB 20 MEQ PO PRN (18:15)
[2018-02-12] MEDS ORDERED: KLOR-CON PO PRN (18:15)
[2018-02-12] MEDS ORDERED: POTASSIUM CHL 60 MEQ/NS 0.45% 500 ML IV PRN (18:15)
[2018-02-12] MEDS: MAGNESIUM SULFATE 1 GRAM/100 mL PREMIX 1 GM/100 ML BAG IV PRN (23:45)
[2018-02-13] MEDS: MAGNESIUM SULFATE 1 GRAM/100 mL PREMIX 1 GM/100 ML BAG IV PRN ×3 (01:00→06:35)
[2018-02-13] MEDS: ANCEF 1 GRAM IV PREMIX IV SCH ×3 (01:00→16:35)
[2018-02-13 05:26] LABS: BASOPHILS # (AUTO) 0.1 X10^3/uL (0.0-0.1); EOSINOPHILS # (AUTO) 0.1 x10^3/uL (0.0-0.2); EOSINOPHILS % (AUTO) 2.1 % (0.9-2.9); LYMPHOCYTES # (AUTO) 1.4 X10^3/uL (1.3-2.9); LYMPHOCYTES % (AUTO) 22.5 % (21.0-51.0); MEAN CORPUSCULAR HEMOGLOBIN 26.1 pg (27.0-34.0); MEAN CORPUSCULAR VOLUME 81.7 fL (80.0-100.0); MEAN PLATELET VOLUME 8.8 fL (7.4-11.0); MONOCYTES # (AUTO) 0.8 x10^3/uL (0.3-0.8); MONOCYTES % (AUTO) 11.8 % (0.0-13.0); NEUTROPHILS % (AUTO) 62.6 % (42.0-75.0); PLATELET COUNT 292 X10^3/uL (150.0-450.0); RED BLOOD COUNT 2.69 X10^6/uL (3.5-5.4); WHITE BLOOD COUNT 6.4 X10^3/uL (3.6-10.0)
[2018-02-13 05:34] LABS: ALANINE AMINOTRANSFERASE 9 Units/L (12-78); ALBUMIN 2.6 g/dL (3.4-5.0); ALKALINE PHOSPHATASE 88 Units/L (46-116); ASPARTATE AMINO TRANSFERASE 18 Units/L (15-37); BLOOD UREA NITROGEN 10 mg/dL (7-18); CALCIUM 8.3 mg/dL (8.5-10.1); CARBON DIOXIDE 25.8 mmol/L (21-32); CHLORIDE 102 mmol/L (98-107); COR CA(FOR HYPOALB) 9.4 mg/dL (8.5-10.1); COR NA(FOR HYPERGLY) 139 mmol/L (136-145); CREATININE 0.69 mg/dL (0.55-1.02); MAGNESIUM 1.9 mg/dL (1.7-2.9); SODIUM 139 mmol/L (136-145); eGFR NON BLACK RACES > 60 (>60)
[2018-02-13 05:40] LABS: ANISOCYTOSIS SLIGHT; HYPOCHROMASIA SLIGHT; PLATELET MORPHOLOGY COMMENT NORMAL (NORMAL)
[2018-02-13] MEDS: NS 1000 ML 1,000 ML IV SCH ×3 (05:40→16:03)
[2018-02-13] MEDS: ALBUMIN HUMAN 25%- 100 ML 100 ML IV SCH (09:39)
[2018-02-13 10:06] VITALS: BMI 29.5
[2018-02-13] MEDS: HEMOCYTE-PLUS PO SCH (10:23)
[2018-02-13] MEDS: LIORESAL PO SCH ×3 (11:28→21:25)
[2018-02-13] MEDS ORDERED: ZINC SULFATE ONE (11:46)
[2018-02-13] MEDS: ZINC SULFATE PO SCH (11:55)
[2018-02-13] MEDS: TYLENOL 325 MG TAB PO PRN (13:27)
[2018-02-13] MEDS: BENADRYL INJ 50 MG VIAL IVP PRN (13:28)
[2018-02-13] MEDS: VITAMIN C PO SCH (21:25)
[2018-02-14] MEDS: ANCEF 1 GRAM IV PREMIX IV SCH ×3 (00:11→16:30)
[2018-02-14] MEDS: NS 1000 ML 1,000 ML IV SCH ×3 (01:14→10:30)
[2018-02-14] MEDS: LIORESAL PO SCH ×2 (05:25→14:54)
[2018-02-14 05:31] LABS: BASOPHILS # (AUTO) 0.1 X10^3/uL (0.0-0.1); EOSINOPHILS # (AUTO) 0.2 x10^3/uL (0.0-0.2); EOSINOPHILS % (AUTO) 3.3 % (0.9-2.9); HEMOGLOBIN 8.8 g/dL (12.0-16.0); LYMPHOCYTES # (AUTO) 1.3 X10^3/uL (1.3-2.9); LYMPHOCYTES % (AUTO) 19.7 % (21.0-51.0); MEAN CORPUSCULAR HEMOGLOBIN 26.3 pg (27.0-34.0); MEAN CORPUSCULAR HGB CONC 32.4 g/dL (33.0-35.0); MEAN CORPUSCULAR VOLUME 80.9 fL (80.0-100.0); MEAN PLATELET VOLUME 8.5 fL (7.4-11.0); MONOCYTES # (AUTO) 0.6 x10^3/uL (0.3-0.8); MONOCYTES % (AUTO) 9.6 % (0.0-13.0); NEUTROPHILS # (AUTO) 4.4 x10^3/uL (2.2-4.8); NEUTROPHILS % (AUTO) 66.4 % (42.0-75.0); PLATELET COUNT 314 X10^3/uL (150.0-450.0); RED BLOOD COUNT 3.34 X10^6/uL (3.5-5.4); RED CELL DISTRIBUTION WIDTH 16.7 % (11.6-16.5); WHITE BLOOD COUNT 6.6 X10^3/uL (3.6-10.0)
[2018-02-14 05:44] LABS: ALANINE AMINOTRANSFERASE 14 Units/L (12-78); ALBUMIN 2.6 g/dL (3.4-5.0); ALKALINE PHOSPHATASE 102 Units/L (46-116); ASPARTATE AMINO TRANSFERASE 29 Units/L (15-37); BLOOD UREA NITROGEN 10 mg/dL (7-18); CALCIUM 8.2 mg/dL (8.5-10.1); CARBON DIOXIDE 26.3 mmol/L (21-32); CHLORIDE 106 mmol/L (98-107); COR CA(FOR HYPOALB) 9.3 mg/dL (8.5-10.1); COR NA(FOR HYPERGLY) 141 mmol/L (136-145); CREATININE 0.66 mg/dL (0.55-1.02); SODIUM 141 mmol/L (136-145); TOTAL PROTEIN 6.8 g/dL (6.4-8.2); eGFR NON BLACK RACES > 60 (>60)
[2018-02-14] MEDS: ALBUMIN HUMAN 25%- 100 ML 100 ML IV SCH (08:52)
[2018-02-14] MEDS: VITAMIN C PO SCH (08:53)
[2018-02-14] MEDS: ZINC SULFATE PO SCH (08:53)
[2018-02-14] MEDS: HEMOCYTE-PLUS PO SCH (08:54)
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
[2018-02-14] MEDS ORDERED: NS 250 ML IV 250 ML IV ONE (11:01)
[2018-02-14] MEDS: BENADRYL INJ 50 MG VIAL IVP PRN (11:06)
[2018-02-14] MEDS: TYLENOL 325 MG TAB PO PRN (11:07)
[2018-02-14 17:01] LABS: HEMATOCRIT 31.8 % (36.0-47.0); HEMOGLOBIN 10.3 g/dL (12.0-16.0)
[2018-02-14 17:25] VITALS: BP 127/73
--- NOTE | 2018-02-28 10:19 | PCM.PROG ---
Progress Note - Progress Note for Day of Date of Exam: 02/14/18 - Subjective Subjective: WAS ADMITTED YESTERDAY FOR A STAGE 4 DECUBITUS ULCER TO THE SACRUM WELL ANEMIA AND HYPOALBUMINEMIA. TODAY, SHE IS ALERT AND ORIENTED, LYING IN BED ON MORNING ROUNDS. SHE IS NOTED WITH COMPLAINTS OF GENERALIZED WEAKNESS. ON EXAMINATION, HEART IS REGULAR IN RATE AND RHYTHM. BILATERAL LUNGS ARE NOTED WITH DIMINISHED LUNG SOUNDS THROUGHOUT. SHE IS A PARAPLEGIC. ABDOMEN IS ROUND, SOFT, AND NON-TENDER WITH NORMAL BOWEL SOUNDS NOTED IN ALL QUADRANTS. SHE IS NOTED WITH A LARGE DECUBITUS MEASURING 2AEW0PH TO THE RIGHT GLUTEAL FOLD. NO EVIDENCE OF CELLULITIS, NECROSIS, OR ABSCESS FORMATION NOTED TO THIS WOUND. THERE IS ALSO A WOUND MEASURING 9LOW6PA TO THE RIGHT LATERAL GLUTEAL FOLD. THERE IS YELLOW SLOUGH NOTED TO WOUND. HER VITALS THIS MORNING ARE 97.8-89-20-96%-106/51. LABS WERE OBTAINED. ABNORMAL LAB VALUES INCLUDE THE FOLLOWING: RBC 2.69, HGB 7.0, HCT 22.0, GLUCOSE 111, CALCIUM 8.3, ALT 9, ALBUMIN 2.6. WOUND CULTURES ARE PENDING. CONSULTED WITH PATIENT AND DOES NOT RECOMMENT DEBRIDEMENT AT THIS TIME, BUT DOES RECOMMEND CONTINUATION OF THE WOUND VAC WELL NUTRITIONAL SUPPORT. TODAY, WE WILL CONTINUE WITH WOUND CARE, WOUND VAC, AND NUTRITIONAL SUPPORT. WE WILL TRANSFUSE TWO UNITS OF PACKED RED BLOO CELLS AND START HEMOCYTE 1 CAPSULE PO DAILY. OTHERWISE, WE WILL FOLLOW UP WITH AM LABS AND CONTINUE TO [place]. - Past Medical Family Social History Past Med/Fam/Surg Hx: No changes since H&P Allergies: Allergies No Known Drug Allergies Allergy (Verified 12/29/16 16:28) - Review of Systems ROS: No change since H&P - Vital Signs and I&O's Vital Signs: Temperature 98.9 F Pulse Rate [Right Brachial] 85 Respiratory Rate 18 Blood Pressure [Right Arm] 127/73 Blood Pressure [Left Arm] 145/66 Blood Pressure 123/55 O2 Sat by Pulse Oximetry 96 - Physical Exam Oriented: Normal Eyes: Normal Ear: Normal Nose: Normal Respiratory: Normal Cardiovascular: Normal Auscultation: Bowel Sounds: Normal Tenderness: Normal Skin: Other (large Rt gluteal ulcer 16 x 6 x 6 cm and smaller 2 x 2 cm next to it .. 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 ) Speech Pattern: Clear, Appropriate - Laboratory and Diagnostics Result Diagrams: 02/14/18 16:47 02/14/18 04:54 Labs: 02/12/18 17:27 Sacral Gram Stain - Final 02/12/18 17:27 Sacral Wound Culture - Final Staphylococcus Epidermidis Laboratory WBC 6.6 X10^3/uL (3.6-10.0) 02/14/18 04:54 RBC 3.34 X10^6/uL (3.5-5.4) L 02/14/18 04:54 Hgb 10.3 g/dL (12.0-16.0) L 02/14/18 16:47 Hct 31.8 % (36.0-47.0) L 02/14/18 16:47 MCV 80.9 fL (80.0-100.0) 02/14/18 04:54 MCH 26.3 pg (27.0-34.0) L 02/14/18 04:54 MCHC 32.4 g/dL (33.0-35.0) L 02/14/18 04:54 RDW 16.7 % (11.6-16.5) H 02/14/18 04:54 Plt Count 314 X10^3/uL (150.0-450.0) 02/14/18 04:54 Plt Count Comment Adequate (ADEQUATE) 02/13/18 04:55 MPV 8.5 fL (7.4-11.0) 02/14/18 04:54 Neut % (Auto) 66.4 % (42.0-75.0) 02/14/18 04:54 Lymph % (Auto) 19.7 % (21.0-51.0) L 02/14/18 04:54 [place] % (Auto) 9.6 % (0.0-13.0) 02/14/18 04:54 Eos % (Auto) 3.3 % (0.9-2.9) H 02/14/18 04:54 Baso % (Auto) 1.0 % (0.2-1.0) 02/14/18 04:54 Neut # (Auto) 4.4 x10^3/uL (2.2-4.8) 02/14/18 04:54 Lymph # (Auto) 1.3 X10^3/uL (1.3-2.9) 02/14/18 04:54 [place] # (Auto) 0.6 x10^3/uL (0.3-0.8) 02/14/18 04:54 Eos # (Auto) 0.2 x10^3/uL (0.0-0.2) 02/14/18 04:54 Baso # (Auto) 0.1 X10^3/uL (0.0-0.1) 02/14/18 04:54 Absolute Nucleated RBC 0.0 /100WBC 02/14/18 04:54 Plt Morphology Comment Normal (NORMAL) 02/13/18 04:55 RBC Morphology Abnormal (NORMAL) A 02/13/18 04:55 Hypochromasia Slight A 02/13/18 04:55 Anisocytosis Slight A 02/13/18 04:55 INR Target Range - 02/12/18 14:37 INR 2.83 (0.8-1.3) H 02/12/18 14:37 APTT 41.6 SECONDS (22.9-36.5) H 02/12/18 14:37 PTT Comment - 02/12/18 14:37 Sodium 141 mmol/L (136-145) 02/14/18 04:54 Corrected Sodium 141 mmol/L (136-145) 02/14/18 04:54 Potassium 4.0 mmol/L (3.5-5.1) 02/14/18 04:54 Chloride 106 mmol/L (98-107) 02/14/18 04:54 Carbon Dioxide 26.3 mmol/L (21-32) 02/14/18 04:54 BUN 10 mg/dL (7-18) 02/14/18 04:54 Creatinine 0.66 mg/dL (0.55-1.02) 02/14/18 04:54 Est GFR (MDRD) Af Amer > 60 (>60) 02/14/18 04:54 Est GFR (MDRD) Non-Af > 60 (>60) 02/14/18 04:54 Glucose 114 mg/dL (65-99) H 02/14/18 04:54 POC Glucose (mg/dL) 104 mg/dL (65-99) H 02/14/18 12:04 Calcium 8.2 mg/dL (8.5-10.1) L 02/14/18 04:54 Corrected Calcium 9.3 mg/dL (8.5-10.1) 02/14/18 04:54 Magnesium 1.9 mg/dL (1.7-2.9) 02/13/18 04:55 Total Bilirubin 0.20 mg/dL (0.2-1.0) 02/14/18 04:54 AST 29 Units/L (15-37) 02/14/18 04:54 ALT 14 Units/L (12-78) 02/14/18 04:54 Alkaline Phosphatase 102 Units/L (46-116) 02/14/18 04:54 Total Protein 6.8 g/dL (6.4-8.2) 02/14/18 04:54 Albumin 2.6 g/dL (3.4-5.0) L 02/14/18 04:54 Globulin 4.2 g/dL (2.5-4.5) 02/14/18 04:54 Albumin/Globulin Ratio 0.6 Ratio (1.1-2.1) L 02/14/18 04:54 Prealbumin 13.6 mg/dL (18-35.7) L 02/12/18 14:37 Specimen Type Catherized urine 02/12/18 16:52 Urine Color Yellow (YELLOW) 02/12/18 16:52 Urine Appearance Slightly hazy (CLEAR) 02/12/18 16:52 Urine pH 5.0 (5.0 - 8.0) 02/12/18 16:52 Ur Specific [place] 1.025 (1.000-1.030) 02/12/18 16:52 Urine Protein 2+ (NEGATIVE) 02/12/18 16:52 Urine Glucose (UA) Negative (NEGATIVE) 02/12/18 16:52 Urine Ketones Negative (NEGATIVE) 02/12/18 16:52 Urine Occult Blood 3+ (NEGATIVE) 02/12/18 16:52 Urine Nitrite Negative (NEGATIVE) 02/12/18 16:52 Urine Bilirubin Negative (NEGATIVE) 02/12/18 16:52 Urine Urobilinogen Normal (NORMAL) 02/12/18 16:52 Ur Leukocyte Esterase 2+ (NEGATIVE) 02/12/18 16:52 Urine RBC 5-10 /HPF (NONE SEEN) 02/12/18 16:52 Urine WBC 3-5 /HPF (NONE SEEN) 02/12/18 16:52 Ur Squamous Epith Cells Moderate /HPF (NEGATIVE) 02/12/18 16:52 Amorphous Sediment 2+ /HPF (NEGATIVE) 02/12/18 16:52 Urine Bacteria 1+ /HPF (NEGATIVE) 02/12/18 16:52 Hyaline Casts Rare /LPF (NEGATIVE) 02/12/18 16:52 Urine Mucus Rare /HPF (NEGATIVE) 02/12/18 16:52 Ur Culture Indicated? No/not indicated 02/12/18 16:52 Blood Type A POSITIVE 02/12/18 14:37 Antibody Screen Negative 02/12/18 14:37 Crossmatch See Detail 02/12/18 14:37 - Plan (1) Anemia Status: Acute Qualifiers: Anemia type: iron deficiency Iron deficiency anemia type: chronic blood loss Qualified Code(s): D50.0 - Iron deficiency anemia secondary to blood loss (chronic) Plan: TRANSFUSE 2 UNITS PACKED RED BLOOD CELLS, HEMOCYTE 1 TABLET DAILY, CONTINUE TO MONITOR. (2) Decubitus ulcer Status: Acute Qualifiers: Pressure injury location: sacral region Pressure injury stage: stage 4 Qualified Code(s): L89.154 - Pressure ulcer of sacral region, stage 4 Plan: WOUND CARE, WOUND VAC, IV ANTIBIOTICS, CONTINUE TO MONITOR. (3) Hypoalbuminemia Status: Acute Plan: ALBUMIN 25% IV DAILY, CONTINUE TO MONITOR
--- NOTE | 2018-03-18 04:07 | DR.CARTERD ---
- Admission Diagnoses Admission Diagnosis: (1) Anemia (2) Decubitus ulcer (3) Hypoalbuminemia - Discharge Diagnoses Discharge Diagnosis: (1) Anemia (2) Decubitus ulcer (3) Hypoalbuminemia - Hospital Course Hospital Course: DAY ONE, PATIENT WAS A DIRECT ADMIT FROM OUR SERVICES FOR ANEMIA. Patient stated that her Hgb is 7.6. Stated that she has weekly lab work done and that her hgb was found to be low and she was told that she would need a transfusion. Stated that she is scheduled to have surgery on her decubitis in [place] and they wanted to get her blood level up before then. Patient also has a decubitus x's 2 to her right gluteal fold. She stated that she has had this wound since July or July. Stated that the wound has grown out staph infection and she is presently taking antibiotics and has a wound vac. She reported associated symptoms of nausea and diarrhea. We continued to evaluate, monitor, and treat patient. Day Two, WAS ADMITTED YESTERDAY FOR A STAGE 4 DECUBITUS ULCER TO THE SACRUM WELL ANEMIA AND HYPOALBUMINEMIA. SHE WAS ALERT AND ORIENTED, LYING IN BED ON MORNING ROUNDS. SHE WAS NOTED WITH COMPLAINTS OF GENERALIZED WEAKNESS. ON EXAMINATION, HEART WAS REGULAR IN RATE AND RHYTHM. BILATERAL LUNGS WERE NOTED WITH DIMINISHED LUNG SOUNDS THROUGHOUT. SHE IS A PARAPLEGIC. ABDOMEN WAS ROUND, SOFT, AND NON-TENDER WITH NORMAL BOWEL SOUNDS NOTED IN ALL QUADRANTS. SHE WAS NOTED WITH A LARGE DECUBITUS MEASURING [id number] TO THE RIGHT GLUTEAL FOLD. NO EVIDENCE OF CELLULITIS, NECROSIS, OR ABSCESS FORMATION NOTED TO THIS WOUND. THERE WAS ALSO A WOUND MEASURING [id number] TO THE RIGHT LATERAL GLUTEAL FOLD. THERE WAS YELLOW SLOUGH NOTED TO WOUND. HER VITALS THIS MORNING WERE 97.8-89-20-96%-106/51. LABS WERE OBTAINED. ABNORMAL LAB VALUES INCLUDED THE FOLLOWING: RBC 2.69, HGB 7.0, HCT 22.0, GLUCOSE 111, CALCIUM 8.3, ALT 9, ALBUMIN 2.6. WOUND CULTURES ARE PENDING. CONSULTED WITH PATIENT AND DOES NOT RECOMMENT DEBRIDEMENT AT THIS TIME, BUT DOES RECOMMEND CONTINUATION OF THE WOUND VAC WELL NUTRITIONAL SUPPORT. WE CONTINUED WITH WOUND CARE, WOUND VAC, AND NUTRITIONAL SUPPORT. WE TRANSFUSED TWO UNITS OF PACKED RED BLOOD CELLS AND STARTED HEMOCYTE 1 CAPSULE PO DAILY. WE FOLLOWED UP WITH AM LABS AND CONTINUED TO MONIOR. DAY THREE, PATIENT REPORTED FEELING MUCH BETTER TODAY DURING MORNING ROUNDS. HGB INCREASED TP 10.3. VITALS WERE STABLE. LABS ARE WITHIN NORMAL RANGE FOR PATIENT. WE PLANNED FOR DISCHARGE. INSTRUCTIONS FOR MEDICATIONS AND FOLLOW UP WERE DISCUSSED WITH PATIENT AND FAMILY, BOTH VOICED UNDERSTANDING. PATIENT DISCHARGED HOME IN STABLE CONDITION WITH FAMILY. - Discharge Medications Discharge Medications: Home Medication List escitalopram oxalate [Lexapro] 10 mg PO DAILY 02/12/18 [History] nitrofurantoin monohyd/m-cryst [Macrobid] 100 mg PO DAILY 02/12/18 [History] B [id number] [Ferrocite Plus] 1 tab PO DAILY #30 tab 02/14/18 [Rx] Prescriptions: B [id number] [Ferrocite Plus] Steven Robb Ambulatory Orders Aspirin 81 mg PO DAILY 03/10/16 baclofen 10 mg PO TID 03/10/16 warfarin 5 mg PO HS 03/10/16 atorvastatin [Lipitor] 10 mg PO DAILY 03/11/16 ascorbic acid (vitamin C) [Vitamin C] 500 mg PO DAILY 12/29/16 cyanocobalamin (vitamin B-12) [Vitamin B-12] 1 tab PO DAILY 12/29/16 lisinopril-hydrochlorothiazide 10 - 12.5 mg PO DAILY 12/29/16 loratadine 1 tab PO DAILY 12/29/16 - Discharge Disposition Discharge Disposition: PATIENT TO FOLLOW UP IN OUR OFFICE IN ONE WEEK.
--- NOTE | 2018-04-04 14:27 | DR.UPDATE ---
H&P Update History and Physical Update: A HOME VISIT WAS MADE TO ASSESS PRESSURE WOUNDS . SHE HAS A STAGE 4 AND A STAGE 2 PRESSURE ULCER ON THE RIGHT HIP THAT IS NON-HEALING. SHE WAS ADMITTED FOR FURTHER EVAULATION AND TREATMENT. ON ADMISSION, WE PLAN TO OBTAIN LABS. WE WILL CONSULT . OTHERWISE, WE WILL START IV ANTIBIOTICS AND NUTRITIONAL SUPPORT. WE PLAN TO FOLLOW UP WITH AM LABS AND CONTINUE TO MONITOR. NO OTHER CHANGES NOTED TO H&P. Changes noted: NO Yes with the following:
== END 2018-02-14 20:05 | disposition home health service (06) | DRG 593 ==
LOC: MED/SURG 13:36
PROVIDERS: ADMIT Internal Medicine; ATTEND Internal Medicine
CPT/HCPCS: 36415; 36430; 71010; 71045; 80053; 81001; 83735; 84132; 84134; 85014; 85018; 85025; 85610; 85730; 86850; 86900; 86901; 86922; 87070; 87075; 87077; 87186; 87205; 94760; A4216; A4222; B5200; P9016; P9047; J0690; J1200; J1642; J3475; J3490; J7030; J7050

== ENCOUNTER 2018-05-09 19:08 | Inpatient (IN) ==
[2018-05-09] MEDS ORDERED: NS 1000 ML 1,000 ML IV ONE (22:28)
--- NOTE | 2018-05-09 22:31 | DR.FEVERAD ---
HPI Time seen Time Seen by Provider: 05/09/18 22:26 PCP Primary Care Physician: Lion VILLALOBOS Complaints/Symptoms Chief Complaint:: " IM BEEN FUNNING A FEVER THAT STARTED TODAY AND IM JUST REAL WEAK FEELING." Source History Provided: Patient Mode of Arrival Mode of Arrival: Wheelchair Timing Onset of Chief Complaint: 05/09/18 PMH PMH Past Medical History: Yes Past Medical History: Depression, GERD and Hypertension Past Medical History Comment: BREAST CANCER Past Surgical History: Yes Surgical History: Hysterectomy and Ortho Surgery Family History History of Family Medical Conditions: Yes Family Medical History: Diabetes Mellitus and Cancer Social History Alcohol Use: None Do you use any recreational Drugs:: No infectious screening Have you traveled outside the country in the last 6 months?: No PE Vital Signs Vitals: Temperature 98.6 F Pulse Rate 121 Respiratory Rate 20 Blood Pressure [Right Arm] 127/73 Blood Pressure [Left Arm] 145/66 Blood Pressure 93/54 O2 Sat by Pulse Oximetry 97 ROR Labs Reviewed Result Diagrams: 05/09/18 23:02 05/09/18 22:55 Laboratory: WBC 19.2 X10^3/uL (3.6-10.0) H 05/09/18 23:02 RBC 3.76 X10^6/uL (3.5-5.4) 05/09/18 23:02 Hgb 9.9 g/dL (12.0-16.0) L 05/09/18 23:02 Hct 31.4 % (36.0-47.0) L 05/09/18 23:02 MCV 83.6 fL (80.0-100.0) 05/09/18 23:02 MCH 26.4 pg (27.0-34.0) L 05/09/18 23:02 MCHC 31.5 g/dL (33.0-35.0) L 05/09/18 23:02 RDW 17.9 % (11.6-16.5) H 05/09/18 23:02 Plt Count 431 X10^3/uL (150.0-450.0) 05/09/18 23:02 Plt Count Comment Adequate (ADEQUATE) 05/09/18 23:02 MPV 8.7 fL (7.4-11.0) 05/09/18 23:02 Neut % (Auto) 91.6 % (42.0-75.0) H 05/09/18 23:02 Lymph % (Auto) 3.7 % (21.0-51.0) L 05/09/18 23:02 [place] % (Auto) 4.0 % (0.0-13.0) 05/09/18 23:02 Eos % (Auto) 0.1 % (0.9-2.9) L 05/09/18 23:02 Baso % (Auto) 0.6 % (0.2-1.0) 05/09/18 23:02 Neut # (Auto) 17.6 x10^3/uL (2.2-4.8) H 05/09/18 23:02 Lymph # (Auto) 0.7 X10^3/uL (1.3-2.9) L 05/09/18 23:02 [place] # (Auto) 0.8 x10^3/uL (0.3-0.8) 05/09/18 23:02 Eos # (Auto) 0.0 x10^3/uL (0.0-0.2) 05/09/18 23:02 Baso # (Auto) 0.1 X10^3/uL (0.0-0.1) 05/09/18 23:02 Absolute Nucleated RBC 0.0 /100WBC 05/09/18 23:02 Total Counted 100 05/09/18 23:02 Neutrophils % (Manual) 88 % (39-76) H 05/09/18 23:02 Band Neutrophils % 8 % (0-10) 05/09/18 23:02 Lymphocytes % (Manual) 4 % (13-43) L 05/09/18 23:02 Plt Morphology Comment Normal (NORMAL) 05/09/18 23:02 RBC Morphology Abnormal (NORMAL) A 05/09/18 23:02 Hypochromasia Slight A 05/09/18 23:02 Anisocytosis Slight A 05/09/18 23:02 Sodium 135 mmol/L (136-145) L 05/09/18 22:55 Corrected Sodium 138 mmol/L (136-145) 05/09/18 22:55 Potassium 3.6 mmol/L (3.5-5.1) 05/09/18 22:55 Chloride 100 mmol/L (98-107) 05/09/18 22:55 Carbon Dioxide 20.0 mmol/L (21-32) L 05/09/18 22:55 BUN 29 mg/dL (7-18) H 05/09/18 22:55 Creatinine 1.42 mg/dL (0.55-1.02) H 05/09/18 22:55 Est GFR (MDRD) Af Amer 49 (>60) L 05/09/18 22:55 Est GFR (MDRD) Non-Af 41 (>60) L 05/09/18 22:55 Glucose 244 mg/dL (65-99) H 05/09/18 22:55 Lactic Acid 2.1 mmol/L (0.4-2.0) H 05/09/18 22:55 Calcium 9.4 mg/dL (8.5-10.1) 05/09/18 22:55 Corrected Calcium 10.9 mg/dL (8.5-10.1) H 05/09/18 22:55 Magnesium 1.7 mg/dL (1.7-2.9) 05/09/18 22:55 Total Bilirubin 0.30 mg/dL (0.2-1.0) 05/09/18 22:55 AST 74 Units/L (15-37) H 05/09/18 22:55 ALT 40 Units/L (12-78) 05/09/18 22:55 Alkaline Phosphatase 275 Units/L (46-116) H 05/09/18 22:55 Total Protein 7.6 g/dL (6.4-8.2) 05/09/18 22:55 Albumin 2.1 g/dL (3.4-5.0) L 05/09/18 22:55 Globulin 5.5 g/dL (2.5-4.5) H 05/09/18 22:55 Albumin/Globulin Ratio 0.4 Ratio (1.1-2.1) L 05/09/18 22:55 Specimen Type Catherized urine 05/09/18 22:28 Urine Color Dark yellow (YELLOW) 05/09/18 22:28 Urine Appearance Hazy (CLEAR) 05/09/18 22:28 Urine pH 5.0 (5.0 - 8.0) 05/09/18 22:28 Ur Specific [place] 1.020 (1.000-1.030) 05/09/18 22:28 Urine Protein 2+ (NEGATIVE) 05/09/18 22:28 Urine Glucose (UA) Negative (NEGATIVE) 05/09/18 22:28 Urine Ketones Negative (NEGATIVE) 05/09/18 22:28 Urine Occult Blood 1+ (NEGATIVE) 05/09/18 22:28 Urine Nitrite Negative (NEGATIVE) 05/09/18 22:28 Urine Bilirubin Negative (NEGATIVE) 05/09/18 22:28 Urine Urobilinogen 1+ (NORMAL) 05/09/18 22:28 Ur Leukocyte Esterase 3+ (NEGATIVE) 05/09/18 22:28 Urine RBC 3-5 /HPF (NONE SEEN) 05/09/18 22:28 Urine WBC 20-30 /HPF (NONE SEEN) 05/09/18 22:28 Ur Squamous Epith Cells Moderate /HPF (NEGATIVE) 05/09/18 22:28 Urine Bacteria 3+ /HPF (NEGATIVE) 05/09/18 22:28 Hyaline Casts Few /LPF (NEGATIVE) 05/09/18 22:28 Urine Mucus Moderate /HPF (NEGATIVE) 05/09/18 22:28 Ur Culture Indicated? Yes/culture set up 05/09/18 22:28
[2018-05-09] MEDS ORDERED: NS 1000 ML 1,000 ML ONE (22:35)
--- NOTE | 2018-05-09 22:50 | RAD ---
Chest AP portable Indication: Dyspnea. Comparison 02/12/2018 Findings: Port-A-Cath tip is over the SVC. Spine hardware noted. There is no pneumothorax. Heart size is normal. Impression: No new acute chest process or change from the prior. Follow-up PA and lateral chest as needed. Reported By:
[2018-05-09 22:53] LABS: BILIRUBIN,URINE NEGATIVE (NEGATIVE); BLOOD/HEMOGLOBIN,URINE 1+ (NEGATIVE); GLUCOSE, URINE NEGATIVE (NEGATIVE); KETONES,URINE NEGATIVE (NEGATIVE); LEUKOCYTE ESTERASE ,URINE 3+ (NEGATIVE); NITRITES,URINE NEGATIVE (NEGATIVE); PROTEIN,URINE 2+ (NEGATIVE); UROBILINOGEN,URINE 1+ (NORMAL)
[2018-05-09 23:09] LABS: APPEARANCE,URINE HAZY (CLEAR); BACTERIA,URINE 3+ /HPF (NEGATIVE); COLOR,URINE DARK YELLOW (YELLOW); MUCUS,URINE MODERATE /HPF (NEGATIVE); SQUAMOUS EPITHELIAL CELL,UR MODERATE /HPF (NEGATIVE)
[2018-05-09 23:10] LABS: HYALINE CASTS, URINE FEW /LPF (NEGATIVE)
[2018-05-09 23:20] LABS: ALBUMIN 2.1 g/dL (3.4-5.0); CALCIUM 9.4 mg/dL (8.5-10.1); COR CA(FOR HYPOALB) 10.9 mg/dL (8.5-10.1); CREATININE 1.42 mg/dL (0.55-1.02); MAGNESIUM 1.7 mg/dL (1.7-2.9); TOTAL PROTEIN 7.6 g/dL (6.4-8.2)
[2018-05-09 23:22] LABS: LACTIC ACID 2.1 mmol/L (0.4-2.0)
[2018-05-09 23:28] LABS: BASOPHILS # (AUTO) 0.1 X10^3/uL (0.0-0.1); BASOPHILS % (AUTO) 0.6 % (0.2-1.0); EOSINOPHILS % (AUTO) 0.1 % (0.9-2.9); HEMATOCRIT 31.4 % (36.0-47.0); HEMOGLOBIN 9.9 g/dL (12.0-16.0); LYMPHOCYTES # (AUTO) 0.7 X10^3/uL (1.3-2.9); LYMPHOCYTES % (AUTO) 3.7 % (21.0-51.0); MEAN CORPUSCULAR HEMOGLOBIN 26.4 pg (27.0-34.0); MEAN CORPUSCULAR HGB CONC 31.5 g/dL (33.0-35.0); MEAN CORPUSCULAR VOLUME 83.6 fL (80.0-100.0); MEAN PLATELET VOLUME 8.7 fL (7.4-11.0); MONOCYTES # (AUTO) 0.8 x10^3/uL (0.3-0.8); NEUTROPHILS # (AUTO) 17.6 x10^3/uL (2.2-4.8); NEUTROPHILS % (AUTO) 91.6 % (42.0-75.0); PLATELET COUNT 431 X10^3/uL (150.0-450.0); RED BLOOD COUNT 3.76 X10^6/uL (3.5-5.4); RED CELL DISTRIBUTION WIDTH 17.9 % (11.6-16.5); WHITE BLOOD COUNT 19.2 X10^3/uL (3.6-10.0)
[2018-05-10 00:07] LABS: ANISOCYTOSIS SLIGHT; BAND NEUTROPHILS % 8 % (0-10); HYPOCHROMASIA SLIGHT; PLATELET MORPHOLOGY COMMENT NORMAL (NORMAL)
[2018-05-10] MEDS ORDERED: LEVAQUIN PREMIX IV 750 MG 750 MG/150 ML BAG IV ONE ×2 (00:10→00:18)
[2018-05-10] MEDS ORDERED: NS 1000 ML 1,000 ML ONE (00:19)
[2018-05-10] MEDS: NS 1000 ML 1,000 ML IV SCH ×4 (00:28→20:03)
[2018-05-10 03:03] LABS: BILIRUBIN,URINE NEGATIVE (NEGATIVE); BLOOD/HEMOGLOBIN,URINE 1+ (NEGATIVE); GLUCOSE, URINE NEGATIVE (NEGATIVE); KETONES,URINE NEGATIVE (NEGATIVE); LEUKOCYTE ESTERASE ,URINE 1+ (NEGATIVE); NITRITES,URINE NEGATIVE (NEGATIVE); PROTEIN,URINE NEGATIVE (NEGATIVE); UROBILINOGEN,URINE NORMAL (NORMAL)
[2018-05-10 03:16] LABS: APPEARANCE,URINE SLIGHTLY HAZY (CLEAR); COLOR,URINE PALE YELLOW (YELLOW)
[2018-05-10 03:17] LABS: BACTERIA,URINE 1+ /HPF (NEGATIVE); HYALINE CASTS, URINE RARE /LPF (NEGATIVE); SQUAMOUS EPITHELIAL CELL,UR NEGATIVE /HPF (NEGATIVE)
[2018-05-10 05:27] LABS: BASOPHILS # (AUTO) 0.1 X10^3/uL (0.0-0.1); BASOPHILS % (AUTO) 0.5 % (0.2-1.0); EOSINOPHILS % (AUTO) 0.2 % (0.9-2.9); HEMOGLOBIN 9.8 g/dL (12.0-16.0); LYMPHOCYTES # (AUTO) 0.9 X10^3/uL (1.3-2.9); LYMPHOCYTES % (AUTO) 6.2 % (21.0-51.0); MEAN CORPUSCULAR HEMOGLOBIN 26.5 pg (27.0-34.0); MEAN CORPUSCULAR HGB CONC 31.6 g/dL (33.0-35.0); MEAN CORPUSCULAR VOLUME 83.9 fL (80.0-100.0); MEAN PLATELET VOLUME 8.5 fL (7.4-11.0); MONOCYTES # (AUTO) 0.8 x10^3/uL (0.3-0.8); MONOCYTES % (AUTO) 5.2 % (0.0-13.0); NEUTROPHILS # (AUTO) 13.2 x10^3/uL (2.2-4.8); NEUTROPHILS % (AUTO) 87.9 % (42.0-75.0); PLATELET COUNT 371 X10^3/uL (150.0-450.0); RED BLOOD COUNT 3.69 X10^6/uL (3.5-5.4); WHITE BLOOD COUNT 15.1 X10^3/uL (3.6-10.0)
[2018-05-10 05:39] LABS: ALANINE AMINOTRANSFERASE 39 Units/L (12-78); ALKALINE PHOSPHATASE 238 Units/L (46-116); ASPARTATE AMINO TRANSFERASE 73 Units/L (15-37); BLOOD UREA NITROGEN 22 mg/dL (7-18); CARBON DIOXIDE 25.9 mmol/L (21-32); CHLORIDE 102 mmol/L (98-107); COR CA(FOR HYPOALB) 10.6 mg/dL (8.5-10.1); COR NA(FOR HYPERGLY) 138 mmol/L (136-145); CREATININE 1.06 mg/dL (0.55-1.02); SODIUM 137 mmol/L (136-145); TOTAL PROTEIN 7.1 g/dL (6.4-8.2); eGFR NON BLACK RACES 57 (>60)
[2018-05-10 08:02] VITALS: BMI 26.7
[2018-05-10] MEDS ORDERED: CUBICIN VIAL 500 MG IVP SCH (10:30)
[2018-05-10] MEDS: ROCEPHIN VIAL 1 GRAM IVP SCH (10:37)
[2018-05-10] MEDS: VANCOMYCIN HCL 500 MG VIAL 500 MG in NS 100 ML IV 100 ML IV SCH ×2 (10:54→20:03)
[2018-05-10] MEDS ORDERED: VANCOMYCIN HCL 500 MG VIAL 500 MG in D5W 100 ML IV 100 ML IV SCH (11:00)
[2018-05-10] MEDS: LIORESAL PO SCH ×2 (18:22→21:21)
[2018-05-10] MEDS ORDERED: LEXAPRO ONE (19:50)
[2018-05-10] MEDS: HEMOCYTE-PLUS PO SCH (20:04)
[2018-05-10] MEDS: VITAMIN B-12 PO SCH (20:04)
[2018-05-10] MEDS: LEXAPRO PO SCH (20:04)
[2018-05-10] MEDS: ASPIRIN EC 81 MG PO SCH (20:05)
[2018-05-10] MEDS: LIPITOR TAB 10 MG PO SCH (20:05)
[2018-05-10] MEDS: ZESTORETIC 10/ 12.5MG PO SCH (20:05)
[2018-05-10] MEDS: VITAMIN C PO SCH (20:05)
[2018-05-10] MEDS: CLARITIN PO SCH (20:05)
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
[2018-05-11] MEDS: COUMADIN TAB 5 MG PO SCH ×2 (02:19→21:35)
[2018-05-11] MEDS: NS 1000 ML 1,000 ML IV SCH ×3 (02:20→17:12)
[2018-05-11 05:22] LABS: BASOPHILS # (AUTO) 0.1 X10^3/uL (0.0-0.1); BASOPHILS % (AUTO) 0.6 % (0.2-1.0); EOSINOPHILS # (AUTO) 0.2 x10^3/uL (0.0-0.2); EOSINOPHILS % (AUTO) 1.7 % (0.9-2.9); HEMATOCRIT 30.2 % (36.0-47.0); HEMOGLOBIN 9.4 g/dL (12.0-16.0); LYMPHOCYTES # (AUTO) 1.5 X10^3/uL (1.3-2.9); LYMPHOCYTES % (AUTO) 17.4 % (21.0-51.0); MEAN CORPUSCULAR HEMOGLOBIN 26.2 pg (27.0-34.0); MEAN CORPUSCULAR HGB CONC 31.2 g/dL (33.0-35.0); MEAN CORPUSCULAR VOLUME 83.9 fL (80.0-100.0); MEAN PLATELET VOLUME 8.9 fL (7.4-11.0); NEUTROPHILS # (AUTO) 6.1 x10^3/uL (2.2-4.8); NEUTROPHILS % (AUTO) 69.3 % (42.0-75.0); PLATELET COUNT 318 X10^3/uL (150.0-450.0); RED BLOOD COUNT 3.59 X10^6/uL (3.5-5.4); RED CELL DISTRIBUTION WIDTH 18.2 % (11.6-16.5); WHITE BLOOD COUNT 8.8 X10^3/uL (3.6-10.0)
[2018-05-11] MEDS: LIORESAL PO SCH ×3 (05:33→21:33)
[2018-05-11 05:39] LABS: ALANINE AMINOTRANSFERASE 43 Units/L (12-78); ALBUMIN 1.9 g/dL (3.4-5.0); ALKALINE PHOSPHATASE 212 Units/L (46-116); ASPARTATE AMINO TRANSFERASE 104 Units/L (15-37); BLOOD UREA NITROGEN 13 mg/dL (7-18); CARBON DIOXIDE 25.4 mmol/L (21-32); CHLORIDE 104 mmol/L (98-107); COR CA(FOR HYPOALB) 10.7 mg/dL (8.5-10.1); CREATININE 0.86 mg/dL (0.55-1.02); SODIUM 137 mmol/L (136-145); TOTAL PROTEIN 6.7 g/dL (6.4-8.2); eGFR NON BLACK RACES > 60 (>60)
[2018-05-11] MEDS ORDERED: LEXAPRO ONE (07:46)
[2018-05-11] MEDS: VITAMIN C PO SCH (08:05)
[2018-05-11] MEDS: LIPITOR TAB 10 MG PO SCH (08:05)
[2018-05-11] MEDS: ASPIRIN EC 81 MG PO SCH (08:05)
[2018-05-11] MEDS: VITAMIN B-12 PO SCH (08:05)
[2018-05-11] MEDS: LEXAPRO PO SCH (08:05)
[2018-05-11] MEDS: HEMOCYTE-PLUS PO SCH (08:05)
[2018-05-11] MEDS: CLARITIN PO SCH (08:05)
[2018-05-11] MEDS: ZESTORETIC 10/ 12.5MG PO SCH (08:06)
[2018-05-11] MEDS: ROCEPHIN VIAL 1 GRAM IVP SCH (08:10)
[2018-05-11] MEDS: VANCOMYCIN HCL 500 MG VIAL 500 MG in NS 100 ML IV 100 ML IV SCH (08:21)
[2018-05-11] MEDS: DAKINS SOLUTION FULL STRENGTH TOP SCH (09:12)
[2018-05-11] MEDS ORDERED: PHARMACY COMMENT IV NR (20:30)
[2018-05-11 21:08] LABS: CREATININE 0.98 mg/dL (0.55-1.02); VANCOMYCIN,TROUGH 6.8 ug/mL (15-20)
--- NOTE | 2018-05-11 21:21 | PCM.PROG ---
Progress Note - Progress Note for Day of Date of Exam: 05/11/18 - Subjective Subjective: WAS ADMITTED FOR UROSEPSIS. TODAY, SHE IS ALERT AND ORIENTED, LYING IN BED ON MORNING ROUNDS. SHE DENIES COMPLAINTS THIS MORNING. ON EXAMINATION, HEART IS REGULAR IN RATE AND RHYTHM. BILATERAL LUNGS ARE NOTED WITH DIMINISHED LUNG SOUNDS THROUGHOUT. ABDOMEN IS ROUND, SOFT, AND NON-TENDER WITH NORMAL BOWEL SOUNDS NOTED IN ALL QUADRANTS. THERE ARE DRESSINGS OVER PRESSURE ULCERS NOTED TO THE RIGHT SIDE BUTTOCK. HER VITALS THIS MORNING ARE 98.5-96-20-94%RA-112/55. LABS WERE OBTAINED. ABNORMAL LAB VALUES INCLUDE THE FOLLOWING: HGB 9.4, HCT 30.2, INR 1.83, AST 104, ALK PHOS 212, ALBUMIN 1.9. URINE, BLOOD, AND WOUND CULTURES ARE PENDING. SHE IS CURRENTLY RECEIVING IV ROCEPHIN AND VANCOMYCIN WELL NORMAL SALINE AT 125ML/HR. WE WILL CONTINUE WITH CURRENT PLAN OF CARE TODAY. OTHERWISE, WE WILL FOLLOW UP WITH AM LABS AND CONTINUE TO MONITOR. - Past Medical Family Social History Past Med/Fam/Surg Hx: No changes since H&P Allergies: Allergies No Known Drug Allergies Allergy (Verified 12/29/16 16:28) - Review of Systems ROS: No change since H&P - Vital Signs and I&O's Vital Signs: Temperature 98.4 F Pulse Rate [Left Brachial] 100 Pulse Rate [Apical] 100 Pulse Rate 121 Respiratory Rate 20 Blood Pressure [Right Arm] 97/53 Blood Pressure [Left Arm] 135/60 Blood Pressure 93/54 O2 Sat by Pulse Oximetry 94 Intake and Output: Intake & Output 05/09/18 05/10/18 05/11/18 05/12/18 11:59 11:59 11:59 11:59 Intake Total 240 / 240 1240 / 1240 360 / 360 Output Total 500 / 500 2300 / 2300 1100 / 1100 Balance -260 / -260 -1060 / -1060 -740 / -740 - Physical Exam Oriented: Normal Eyes: Normal Ear: Normal Nose: Normal Throat: Normal Respiratory: Normal Cardiovascular: Normal. negative: S3, S4, Murmur : Normal Auscultation: Bowel Sounds: Normal Palpation: Normal Tenderness: Normal Skin: Wound (RIGHT SIDE BUTTOCK PRESSURE ULCERS ) Musculoskeletal: Motor Deficit (PARAPLEGIC ) Psychiatric: Normal Mood Description: Calm Affect: Normal Speech Pattern: Clear - Laboratory and Diagnostics Result Diagrams: 05/11/18 04:35 05/11/18 20:42 Labs: 05/09/18 22:50 Blood Blood Culture - Preliminary 05/09/18 22:55 Blood Blood Culture - Preliminary 05/10/18 02:28 Buttock Gram Stain - Final 05/10/18 02:28 Buttock Wound Culture - Preliminary 05/09/18 22:28 Urine,Catheterized Urine Culture - Preliminary Laboratory WBC 8.8 X10^3/uL (3.6-10.0) 05/11/18 04:35 RBC 3.59 X10^6/uL (3.5-5.4) 05/11/18 04:35 Hgb 9.4 g/dL (12.0-16.0) L 05/11/18 04:35 Hct 30.2 % (36.0-47.0) L 05/11/18 04:35 MCV 83.9 fL (80.0-100.0) 05/11/18 04:35 MCH 26.2 pg (27.0-34.0) L 05/11/18 04:35 MCHC 31.2 g/dL (33.0-35.0) L 05/11/18 04:35 RDW 18.2 % (11.6-16.5) H 05/11/18 04:35 Plt Count 318 X10^3/uL (150.0-450.0) 05/11/18 04:35 Plt Count Comment Adequate (ADEQUATE) 05/09/18 23:02 MPV 8.9 fL (7.4-11.0) 05/11/18 04:35 Neut % (Auto) 69.3 % (42.0-75.0) 05/11/18 04:35 Lymph % (Auto) 17.4 % (21.0-51.0) L 05/11/18 04:35 [place] % (Auto) 11.0 % (0.0-13.0) 05/11/18 04:35 Eos % (Auto) 1.7 % (0.9-2.9) 05/11/18 04:35 Baso % (Auto) 0.6 % (0.2-1.0) 05/11/18 04:35 Neut # (Auto) 6.1 x10^3/uL (2.2-4.8) H 05/11/18 04:35 Lymph # (Auto) 1.5 X10^3/uL (1.3-2.9) 05/11/18 04:35 [place] # (Auto) 1.0 x10^3/uL (0.3-0.8) H 05/11/18 04:35 Eos # (Auto) 0.2 x10^3/uL (0.0-0.2) 05/11/18 04:35 Baso # (Auto) 0.1 X10^3/uL (0.0-0.1) 05/11/18 04:35 Absolute Nucleated RBC 0.0 /100WBC 05/11/18 04:35 Total Counted 100 05/09/18 23:02 Neutrophils % (Manual) 88 % (39-76) H 05/09/18 23:02 Band Neutrophils % 8 % (0-10) 05/09/18 23:02 Lymphocytes % (Manual) 4 % (13-43) L 05/09/18 23:02 Plt Morphology Comment Normal (NORMAL) 05/09/18 23:02 RBC Morphology Abnormal (NORMAL) A 05/09/18 23:02 Hypochromasia Slight A 05/09/18 23:02 Anisocytosis Slight A 05/09/18 23:02 INR Target Range - 05/11/18 04:35 INR 1.83 (0.8-1.3) H 05/11/18 04:35 Sodium 137 mmol/L (136-145) 05/11/18 04:35 Corrected Sodium TNP 05/11/18 04:35 Potassium 3.8 mmol/L (3.5-5.1) 05/11/18 04:35 Chloride 104 mmol/L (98-107) 05/11/18 04:35 Carbon Dioxide 25.4 mmol/L (21-32) 05/11/18 04:35 BUN 13 mg/dL (7-18) 05/11/18 04:35 Creatinine 0.98 mg/dL (0.55-1.02) 05/11/18 20:42 Est GFR (MDRD) Af Amer > 60 (>60) 05/11/18 04:35 Est GFR (MDRD) Non-Af > 60 (>60) 05/11/18 04:35 Glucose 99 mg/dL (65-99) 05/11/18 04:35 Lactic Acid 2.1 mmol/L (0.4-2.0) H 05/09/18 22:55 Calcium 9.0 mg/dL (8.5-10.1) 05/11/18 04:35 Corrected Calcium 10.7 mg/dL (8.5-10.1) H 05/11/18 04:35 Magnesium 1.7 mg/dL (1.7-2.9) 05/09/18 22:55 Total Bilirubin 0.30 mg/dL (0.2-1.0) 05/11/18 04:35 AST 104 Units/L (15-37) H 05/11/18 04:35 ALT 43 Units/L (12-78) 05/11/18 04:35 Alkaline Phosphatase 212 Units/L (46-116) H 05/11/18 04:35 Total Protein 6.7 g/dL (6.4-8.2) 05/11/18 04:35 Albumin 1.9 g/dL (3.4-5.0) L 05/11/18 04:35 Globulin 4.8 g/dL (2.5-4.5) H 05/11/18 04:35 Albumin/Globulin Ratio 0.4 Ratio (1.1-2.1) L 05/11/18 04:35 Specimen Type Catherized urine 05/10/18 02:28 Urine Color Pale yellow (YELLOW) 05/10/18 02:28 Urine Appearance Slightly hazy (CLEAR) 05/10/18 02:28 Urine pH 5.0 (5.0 - 8.0) 05/10/18 02:28 Ur Specific [place] 1.010 (1.000-1.030) 05/10/18 02:28 Urine Protein Negative (NEGATIVE) 05/10/18 02:28 Urine Glucose (UA) Negative (NEGATIVE) 05/10/18 02:28 Urine Ketones Negative (NEGATIVE) 05/10/18 02:28 Urine Occult Blood 1+ (NEGATIVE) 05/10/18 02:28 Urine Nitrite Negative (NEGATIVE) 05/10/18 02:28 Urine Bilirubin Negative (NEGATIVE) 05/10/18 02:28 Urine Urobilinogen Normal (NORMAL) 05/10/18 02:28 Ur Leukocyte Esterase 1+ (NEGATIVE) 05/10/18 02:28 Urine RBC 3-5 /HPF (NONE SEEN) 05/10/18 02:28 Urine WBC 10-20 /HPF (NONE SEEN) 05/10/18 02:28 Ur Squamous Epith Cells Negative /HPF (NEGATIVE) 05/10/18 02:28 Urine Bacteria 1+ /HPF (NEGATIVE) 05/10/18 02:28 Hyaline Casts Rare /LPF (NEGATIVE) 05/10/18 02:28 Urine Mucus Moderate /HPF (NEGATIVE) 05/09/18 22:28 Ur Culture Indicated? No/not indicated 05/10/18 02:28 Vancomycin Trough 6.8 ug/mL (15-20) L 05/11/18 20:42 Influenza Type A (PCR) Negative (NEGATIVE) 05/10/18 00:26 Influenza Type B (PCR) Negative (NEGATIVE) 05/10/18 00:26 - Plan (1) Sepsis due to urinary tract infection Status: Acute Plan: IV ROCEPHIN, IV VANCOMYCIN, CONTINUE TO MONITOR (2) Fever Status: Acute Qualifiers: Fever type: unspecified Qualified Code(s): R50.9 - Fever, unspecified
[2018-05-11] MEDS ORDERED: VANCOMYCIN HCL 500 MG VIAL 750 MG in D5W 250 ML IV 250 ML IV SCH (22:00)
[2018-05-11] MEDS ORDERED: PHARMACY CONSULT - VANCOMYCIN XX SCH (22:00)
[2018-05-12] MEDS: NS 1000 ML 1,000 ML IV SCH ×3 (02:26→17:30)
[2018-05-12 05:20] LABS: BASOPHILS % (AUTO) 0.5 % (0.2-1.0); EOSINOPHILS # (AUTO) 0.1 x10^3/uL (0.0-0.2); EOSINOPHILS % (AUTO) 1.6 % (0.9-2.9); HEMATOCRIT 33.6 % (36.0-47.0); HEMOGLOBIN 10.5 g/dL (12.0-16.0); LYMPHOCYTES # (AUTO) 0.8 X10^3/uL (1.3-2.9); LYMPHOCYTES % (AUTO) 9.8 % (21.0-51.0); MEAN CORPUSCULAR HEMOGLOBIN 26.4 pg (27.0-34.0); MEAN CORPUSCULAR HGB CONC 31.2 g/dL (33.0-35.0); MEAN CORPUSCULAR VOLUME 84.6 fL (80.0-100.0); MEAN PLATELET VOLUME 8.4 fL (7.4-11.0); MONOCYTES # (AUTO) 0.5 x10^3/uL (0.3-0.8); MONOCYTES % (AUTO) 5.7 % (0.0-13.0); NEUTROPHILS # (AUTO) 6.6 x10^3/uL (2.2-4.8); NEUTROPHILS % (AUTO) 82.4 % (42.0-75.0); PLATELET COUNT 323 X10^3/uL (150.0-450.0); RED BLOOD COUNT 3.97 X10^6/uL (3.5-5.4)
[2018-05-12 05:29] LABS: ALANINE AMINOTRANSFERASE 59 Units/L (12-78); ALKALINE PHOSPHATASE 272 Units/L (46-116); ASPARTATE AMINO TRANSFERASE 83 Units/L (15-37); BLOOD UREA NITROGEN 9 mg/dL (7-18); CALCIUM 8.6 mg/dL (8.5-10.1); CARBON DIOXIDE 27.9 mmol/L (21-32); CHLORIDE 104 mmol/L (98-107); COR CA(FOR HYPOALB) 10.2 mg/dL (8.5-10.1); COR NA(FOR HYPERGLY) 140 mmol/L (136-145); CREATININE 0.97 mg/dL (0.55-1.02); SODIUM 139 mmol/L (136-145); TOTAL PROTEIN 7.2 g/dL (6.4-8.2); eGFR NON BLACK RACES > 60 (>60)
[2018-05-12] MEDS: LIORESAL PO SCH ×3 (05:39→21:15)
[2018-05-12] MEDS ORDERED: LEXAPRO ONE (08:01)
[2018-05-12] MEDS ORDERED: TYLENOL 325 MG TAB PO PRN (08:09)
[2018-05-12] MEDS: LEXAPRO PO SCH (08:24)
[2018-05-12] MEDS: LIPITOR TAB 10 MG PO SCH (08:24)
[2018-05-12] MEDS: ASPIRIN EC 81 MG PO SCH (08:24)
[2018-05-12] MEDS: CLARITIN PO SCH (08:25)
[2018-05-12] MEDS: VITAMIN C PO SCH (08:25)
[2018-05-12] MEDS: HEMOCYTE-PLUS PO SCH (08:25)
[2018-05-12] MEDS: VITAMIN B-12 PO SCH (08:26)
[2018-05-12] MEDS: ZESTORETIC 10/ 12.5MG PO SCH (08:26)
[2018-05-12] MEDS: ROCEPHIN VIAL 1 GRAM IVP SCH (08:29)
[2018-05-12] MEDS: VANCOMYCIN HCL 1 GM VIAL 1 G in D5W 250 ML IV 250 ML IV SCH ×2 (08:57→21:16)
[2018-05-12] MEDS: DAKINS SOLUTION FULL STRENGTH TOP SCH (09:21)
[2018-05-12] MEDS ORDERED: BUTT CREAM (COMPOUND) TOP PRN (18:20)
--- NOTE | 2018-05-12 20:11 | PCM.PROG ---
Progress Note - Progress Note for Day of Date of Exam: 05/12/18 - Subjective Subjective: WAS ADMITTED FOR UROSEPSIS. TODAY, SHE IS ALERT AND ORIENTED, LYING IN BED ON MORNING ROUNDS. SHE DENIES COMPLAINTS THIS MORNING. ON EXAMINATION, HEART IS REGULAR IN RATE AND RHYTHM. BILATERAL LUNGS ARE NOTED WITH DIMINISHED LUNG SOUNDS THROUGHOUT. ABDOMEN IS ROUND, SOFT, AND NON-TENDER WITH NORMAL BOWEL SOUNDS NOTED IN ALL QUADRANTS. THERE ARE DRESSINGS OVER STAGE 4 PRESSURE ULCERS NOTED TO THE RIGHT SIDE BUTTOCK. HER VITALS THIS MORNING ARE 101.5-98-20-96%-126/60. LABS WERE OBTAINED. ABNORMAL LAB VALUES INCLUDE THE FOLLOWING: HGB 10.5, HCT 33.6, INR 2.07, GLUCOSE 131, AST 83, ALK PHOS 272, ALBUMIN 2.0, GLOBULIN 5.2. URINE, BLOOD, AND WOUND CULTURES ARE PENDING. ALL PRELIMINARY CULTURES REPORT GROWTH OF GRAM NEGATIVE RODS. SHE IS CURRENTLY RECEIVING IV ROCEPHIN AND VANCOMYCIN WELL NORMAL SALINE AT 125ML/HR. WE WILL CONTINUE WITH CURRENT PLAN OF CARE TODAY. OTHERWISE, WE WILL FOLLOW UP WITH AM LABS AND CONTINUE TO MONITOR. - Past Medical Family Social History Past Med/Fam/Surg Hx: No changes since H&P Allergies: Allergies No Known Drug Allergies Allergy (Verified 12/29/16 16:28) - Review of Systems ROS: No change since H&P - Vital Signs and I&O's Vital Signs: Temperature 97.8 F Pulse Rate [Right Brachial] 80 Pulse Rate [Left Brachial] 103 Pulse Rate [Apical] 100 Pulse Rate 121 Respiratory Rate 18 Blood Pressure [Right Arm] 97/55 Blood Pressure [Left Arm] 115/80 Blood Pressure 93/54 O2 Sat by Pulse Oximetry 99 Intake and Output: Intake & Output 05/10/18 05/11/18 05/12/18 05/13/18 11:59 11:59 11:59 11:59 Intake Total 240 / 240 1240 / 1240 1450 / 1450 1720 / 1720 Output Total 500 / 500 2300 / 2300 3000 / 3000 1600 / 1600 Balance -260 / -260 -1060 / -1060 -1550 / -1550 120 / 120 - Physical Exam Oriented: Normal Eyes: Normal Ear: Normal Nose: Normal Throat: Normal Respiratory: Normal Cardiovascular: Normal. negative: S3, S4, Murmur : Normal Auscultation: Bowel Sounds: Normal Palpation: Normal Tenderness: Normal Skin: Wound (RIGHT SIDE BUTTOCK STAGE 4 PRESSURE ULCERS ) Musculoskeletal: Motor Deficit (PARAPLEGIC ) Psychiatric: Normal Mood Description: Calm Affect: Normal Speech Pattern: Clear, Appropriate - Laboratory and Diagnostics Result Diagrams: 05/12/18 04:55 05/12/18 04:55 Labs: 05/10/18 02:28 Buttock Gram Stain - Final 05/10/18 02:28 Buttock Wound Culture - Preliminary 05/09/18 22:50 Blood Blood Culture - Preliminary 05/09/18 22:55 Blood Blood Culture - Preliminary 05/09/18 22:28 Urine,Catheterized Urine Culture - Final Klebsiella Pneumoniae Laboratory WBC 8.0 X10^3/uL (3.6-10.0) 05/12/18 04:55 RBC 3.97 X10^6/uL (3.5-5.4) 05/12/18 04:55 Hgb 10.5 g/dL (12.0-16.0) L 05/12/18 04:55 Hct 33.6 % (36.0-47.0) L 05/12/18 04:55 MCV 84.6 fL (80.0-100.0) 05/12/18 04:55 MCH 26.4 pg (27.0-34.0) L 05/12/18 04:55 MCHC 31.2 g/dL (33.0-35.0) L 05/12/18 04:55 RDW 18.0 % (11.6-16.5) H 05/12/18 04:55 Plt Count 323 X10^3/uL (150.0-450.0) 05/12/18 04:55 Plt Count Comment Adequate (ADEQUATE) 05/09/18 23:02 MPV 8.4 fL (7.4-11.0) 05/12/18 04:55 Neut % (Auto) 82.4 % (42.0-75.0) H 05/12/18 04:55 Lymph % (Auto) 9.8 % (21.0-51.0) L 05/12/18 04:55 [place] % (Auto) 5.7 % (0.0-13.0) 05/12/18 04:55 Eos % (Auto) 1.6 % (0.9-2.9) 05/12/18 04:55 Baso % (Auto) 0.5 % (0.2-1.0) 05/12/18 04:55 Neut # (Auto) 6.6 x10^3/uL (2.2-4.8) H 05/12/18 04:55 Lymph # (Auto) 0.8 X10^3/uL (1.3-2.9) L 05/12/18 04:55 [place] # (Auto) 0.5 x10^3/uL (0.3-0.8) 05/12/18 04:55 Eos # (Auto) 0.1 x10^3/uL (0.0-0.2) 05/12/18 04:55 Baso # (Auto) 0.0 X10^3/uL (0.0-0.1) 05/12/18 04:55 Absolute Nucleated RBC 0.0 /100WBC 05/12/18 04:55 Total Counted 100 05/09/18 23:02 Neutrophils % (Manual) 88 % (39-76) H 05/09/18 23:02 Band Neutrophils % 8 % (0-10) 05/09/18 23:02 Lymphocytes % (Manual) 4 % (13-43) L 05/09/18 23:02 Plt Morphology Comment Normal (NORMAL) 05/09/18 23:02 RBC Morphology Abnormal (NORMAL) A 05/09/18 23:02 Hypochromasia Slight A 05/09/18 23:02 Anisocytosis Slight A 05/09/18 23:02 INR Target Range - 05/12/18 04:55 INR 2.07 (0.8-1.3) H 05/12/18 04:55 Sodium 139 mmol/L (136-145) 05/12/18 04:55 Corrected Sodium 140 mmol/L (136-145) 05/12/18 04:55 Potassium 3.8 mmol/L (3.5-5.1) 05/12/18 04:55 Chloride 104 mmol/L (98-107) 05/12/18 04:55 Carbon Dioxide 27.9 mmol/L (21-32) 05/12/18 04:55 BUN 9 mg/dL (7-18) 05/12/18 04:55 Creatinine 0.97 mg/dL (0.55-1.02) 05/12/18 04:55 Est GFR (MDRD) Af Amer > 60 (>60) 05/12/18 04:55 Est GFR (MDRD) Non-Af > 60 (>60) 05/12/18 04:55 Glucose 131 mg/dL (65-99) H 05/12/18 04:55 Lactic Acid 2.1 mmol/L (0.4-2.0) H 05/09/18 22:55 Calcium 8.6 mg/dL (8.5-10.1) 05/12/18 04:55 Corrected Calcium 10.2 mg/dL (8.5-10.1) H 05/12/18 04:55 Magnesium 1.7 mg/dL (1.7-2.9) 05/09/18 22:55 Total Bilirubin 0.30 mg/dL (0.2-1.0) 05/12/18 04:55 AST 83 Units/L (15-37) H 05/12/18 04:55 ALT 59 Units/L (12-78) 05/12/18 04:55 Alkaline Phosphatase 272 Units/L (46-116) H 05/12/18 04:55 Total Protein 7.2 g/dL (6.4-8.2) 05/12/18 04:55 Albumin 2.0 g/dL (3.4-5.0) L 05/12/18 04:55 Globulin 5.2 g/dL (2.5-4.5) H 05/12/18 04:55 Albumin/Globulin Ratio 0.4 Ratio (1.1-2.1) L 05/12/18 04:55 Specimen Type Catherized urine 05/10/18 02:28 Urine Color Pale yellow (YELLOW) 05/10/18 02:28 Urine Appearance Slightly hazy (CLEAR) 05/10/18 02:28 Urine pH 5.0 (5.0 - 8.0) 05/10/18 02:28 Ur Specific [place] 1.010 (1.000-1.030) 05/10/18 02:28 Urine Protein Negative (NEGATIVE) 05/10/18 02:28 Urine Glucose (UA) Negative (NEGATIVE) 05/10/18 02:28 Urine Ketones Negative (NEGATIVE) 05/10/18 02:28 Urine Occult Blood 1+ (NEGATIVE) 05/10/18 02:28 Urine Nitrite Negative (NEGATIVE) 05/10/18 02:28 Urine Bilirubin Negative (NEGATIVE) 05/10/18 02:28 Urine Urobilinogen Normal (NORMAL) 05/10/18 02:28 Ur Leukocyte Esterase 1+ (NEGATIVE) 05/10/18 02:28 Urine RBC 3-5 /HPF (NONE SEEN) 05/10/18 02:28 Urine WBC 10-20 /HPF (NONE SEEN) 05/10/18 02:28 Ur Squamous Epith Cells Negative /HPF (NEGATIVE) 05/10/18 02:28 Urine Bacteria 1+ /HPF (NEGATIVE) 05/10/18 02:28 Hyaline Casts Rare /LPF (NEGATIVE) 05/10/18 02:28 Urine Mucus Moderate /HPF (NEGATIVE) 05/09/18 22:28 Ur Culture Indicated? No/not indicated 05/10/18 02:28 Vancomycin Trough 6.8 ug/mL (15-20) L 05/11/18 20:42 Influenza Type A (PCR) Negative (NEGATIVE) 05/10/18 00:26 Influenza Type B (PCR) Negative (NEGATIVE) 05/10/18 00:26 - Plan (1) Sepsis due to urinary tract infection Status: Acute Plan: IV ROCEPHIN, IV VANCOMYCIN, CONTINUE TO MONITOR (2) Fever Status: Acute Qualifiers: Fever type: unspecified Qualified Code(s): R50.9 - Fever, unspecified (3) Stage 4 pressure ulcer Status: Chronic Qualifiers: Pressure injury location: buttock Laterality: right Qualified Code(s): L89.314 - Pressure ulcer of right buttock, stage 4 Plan: WOULD CARE, IV ANTIBIOTICS, CONTINUE TO MONITOR
[2018-05-12] MEDS: COUMADIN TAB 5 MG PO SCH (21:15)
[2018-05-13] MEDS: NS 1000 ML 1,000 ML IV SCH ×2 (01:02→08:31)
[2018-05-13 05:27] LABS: BASOPHILS # (AUTO) 0.1 X10^3/uL (0.0-0.1); BASOPHILS % (AUTO) 0.9 % (0.2-1.0); EOSINOPHILS # (AUTO) 0.3 x10^3/uL (0.0-0.2); EOSINOPHILS % (AUTO) 4.1 % (0.9-2.9); HEMATOCRIT 29.3 % (36.0-47.0); HEMOGLOBIN 9.3 g/dL (12.0-16.0); LYMPHOCYTES # (AUTO) 1.1 X10^3/uL (1.3-2.9); LYMPHOCYTES % (AUTO) 16.5 % (21.0-51.0); MEAN CORPUSCULAR HEMOGLOBIN 26.7 pg (27.0-34.0); MEAN CORPUSCULAR HGB CONC 31.7 g/dL (33.0-35.0); MEAN CORPUSCULAR VOLUME 84.3 fL (80.0-100.0); MEAN PLATELET VOLUME 8.6 fL (7.4-11.0); MONOCYTES # (AUTO) 0.8 x10^3/uL (0.3-0.8); MONOCYTES % (AUTO) 11.8 % (0.0-13.0); NEUTROPHILS # (AUTO) 4.3 x10^3/uL (2.2-4.8); NEUTROPHILS % (AUTO) 66.7 % (42.0-75.0); PLATELET COUNT 271 X10^3/uL (150.0-450.0); RED BLOOD COUNT 3.48 X10^6/uL (3.5-5.4); RED CELL DISTRIBUTION WIDTH 17.9 % (11.6-16.5); WHITE BLOOD COUNT 6.5 X10^3/uL (3.6-10.0)
[2018-05-13 05:40] LABS: ALANINE AMINOTRANSFERASE 46 Units/L (12-78); ALBUMIN 1.6 g/dL (3.4-5.0); ALKALINE PHOSPHATASE 215 Units/L (46-116); ASPARTATE AMINO TRANSFERASE 53 Units/L (15-37); BLOOD UREA NITROGEN 11 mg/dL (7-18); CALCIUM 8.3 mg/dL (8.5-10.1); CARBON DIOXIDE 25.3 mmol/L (21-32); CHLORIDE 107 mmol/L (98-107); COR CA(FOR HYPOALB) 10.2 mg/dL (8.5-10.1); COR NA(FOR HYPERGLY) 141 mmol/L (136-145); CREATININE 0.81 mg/dL (0.55-1.02); SODIUM 140 mmol/L (136-145); TOTAL PROTEIN 6.1 g/dL (6.4-8.2); eGFR NON BLACK RACES > 60 (>60)
[2018-05-13] MEDS: LIORESAL PO SCH (05:50)
[2018-05-13] MEDS ORDERED: POTASSIUM CHL 40 MEQ/NS 0.45% 500 ML IV PRN (07:07)
[2018-05-13] MEDS ORDERED: MICRO K EXTEN CAP 10 MEQ PO PRN (07:07)
[2018-05-13] MEDS ORDERED: MAGNESIUM SULFATE 1 GRAM/100 mL PREMIX 1 GM/100 ML BAG IV PRN (07:07)
[2018-05-13] MEDS ORDERED: POTASSIUM CHL 60 MEQ/NS 0.45% 500 ML IV PRN (07:07)
[2018-05-13] MEDS ORDERED: KLOR-CON PO PRN (07:07)
[2018-05-13] MEDS ORDERED: K-DUR TAB 20 MEQ PO PRN (07:07)
[2018-05-13] MEDS ORDERED: K-RIDER 10 MEQ/NS 100 ML 10 MEQ/100 ML BAG IV PRN (07:07)
[2018-05-13] MEDS ORDERED: POTASSIUM CHLORIDE LIQ 20 MEQ UDC PO PRN (07:07)
[2018-05-13] MEDS ORDERED: LEXAPRO ONE (08:20)
[2018-05-13] MEDS ORDERED: PHARMACY COMMENT IV NR (08:30)
[2018-05-13] MEDS: ROCEPHIN VIAL 1 GRAM IVP SCH (08:31)
[2018-05-13] MEDS: VANCOMYCIN HCL 1 GM VIAL 1 G in D5W 250 ML IV 250 ML IV SCH (08:31)
[2018-05-13] MEDS: VITAMIN B-12 PO SCH (08:32)
[2018-05-13] MEDS: CLARITIN PO SCH (08:33)
[2018-05-13] MEDS: ZESTORETIC 10/ 12.5MG PO SCH (08:33)
[2018-05-13] MEDS: VITAMIN C PO SCH (08:33)
[2018-05-13] MEDS: LEXAPRO PO SCH (08:33)
[2018-05-13] MEDS: LIPITOR TAB 10 MG PO SCH (08:33)
[2018-05-13] MEDS: ASPIRIN EC 81 MG PO SCH (08:33)
[2018-05-13] MEDS: HEMOCYTE-PLUS PO SCH (08:33)
[2018-05-13] MEDS: DAKINS SOLUTION FULL STRENGTH TOP SCH (08:34)
[2018-05-13] MEDS ORDERED: STERILE WATER IRRIGATION IR ONE (10:24)
[2018-05-13] MEDS ORDERED: MAG-OX TAB PO ONE (10:34)
[2018-05-13] MEDS ORDERED: MAG-OX TAB ONE (11:11)
[2018-05-13 12:02] VITALS: BP 130/69
== END 2018-05-13 13:40 | disposition home health service (06) | DRG 689 ==
LOC: ER 19:08 → MED/SURG 19:08 → OBSVTOIN 05-10 00:24 → MED/SURG 05-10 01:07
PROVIDERS: ADMIT Internal Medicine; ATTEND Internal Medicine
DX: I10 Essential (primary) hypertension; D64.89 Other specified anemias; R53.1 Weakness; E11.65 Type 2 diabetes mellitus with hyperglycemia; K21.9 Gastro-esophageal reflux disease without esophagitis; G82.21 Paraplegia, complete; Z79.01 Long term (current) use of anticoagulants; R50.9 Fever, unspecified; B96.1 Klebsiella pneumoniae [K. pneumoniae] as the cause of diseases classified elsewhere; N39.0 Urinary tract infection, site not specified; L89.314 Pressure ulcer of right buttock, stage 4; A41.89 Other specified sepsis; B96.89 Other specified bacterial agents as the cause of diseases classified elsewhere
CPT/HCPCS: 36415; 51701; 71010; 71045; 80053; 80202; 81001; 82565; 83605; 83735; 85025; 85610; 87040; 87070; 87077; 87086; 87088; 87186; 87205; 87502; 94760; 96365; 96367; 96375; 99282; 99284; A4217; A4222; J0696; J1956; J3370; J3475; J3490; J7030; J7050; J7060

== ENCOUNTER 2018-08-28 11:42 | Inpatient (IN) ==
[2018-08-28] MEDS ORDERED: HumuLIN R SUBCUT PRN (16:12)
[2018-08-28] MEDS ORDERED: NS 1000 ML 1,000 ML ONE (16:16)
[2018-08-28] MEDS: NS 1000 ML 1,000 ML IV SCH (16:32)
[2018-08-28 16:50] LABS: BASOPHILS # (AUTO) 0.1 X10^3/uL (0.0-0.1); EOSINOPHILS # (AUTO) 0.2 x10^3/uL (0.0-0.2); EOSINOPHILS % (AUTO) 1.8 % (0.9-2.9); HEMATOCRIT 30.6 % (36.0-47.0); HEMOGLOBIN 9.8 g/dL (12.0-16.0); LYMPHOCYTES # (AUTO) 1.9 X10^3/uL (1.3-2.9); LYMPHOCYTES % (AUTO) 18.9 % (21.0-51.0); MEAN CORPUSCULAR HEMOGLOBIN 26.8 pg (27.0-34.0); MEAN CORPUSCULAR HGB CONC 31.9 g/dL (33.0-35.0); MEAN PLATELET VOLUME 8.7 fL (7.4-11.0); MONOCYTES # (AUTO) 1.2 x10^3/uL (0.3-0.8); MONOCYTES % (AUTO) 11.4 % (0.0-13.0); NEUTROPHILS # (AUTO) 6.8 x10^3/uL (2.2-4.8); NEUTROPHILS % (AUTO) 66.9 % (42.0-75.0); PLATELET COUNT 347 X10^3/uL (150.0-450.0); RED BLOOD COUNT 3.64 X10^6/uL (3.5-5.4); RED CELL DISTRIBUTION WIDTH 17.4 % (11.6-16.5); WHITE BLOOD COUNT 10.2 X10^3/uL (3.6-10.0)
[2018-08-28 16:58] LABS: AMMONIA 36 umol/L (11-32)
[2018-08-28 16:59] LABS: ALANINE AMINOTRANSFERASE 21 Units/L (12-78); ALBUMIN 1.5 g/dL (3.4-5.0); ALKALINE PHOSPHATASE 310 Units/L (46-116); AMYLASE 37 Units/L (25-115); ASPARTATE AMINO TRANSFERASE 110 Units/L (15-37); BLOOD UREA NITROGEN 11 mg/dL (7-18); CALCIUM 8.4 mg/dL (8.5-10.1); CHLORIDE 106 mmol/L (98-107); COR CA(FOR HYPOALB) 10.4 mg/dL (8.5-10.1); COR NA(FOR HYPERGLY) 139 mmol/L (136-145); CREATININE 0.82 mg/dL (0.55-1.02); LIPASE 78 Units/L (73-393); SODIUM 139 mmol/L (136-145); TOTAL PROTEIN 6.1 g/dL (6.4-8.2); eGFR NON BLACK RACES > 60 (>60)
--- NOTE | 2018-08-28 17:38 | RAD ---
Chest AP portable Indication: Dyspnea Comparison: 05/09/2018 Findings: There is no pneumothorax or effusion. Port-A-Cath tip is over the SVC. Spinal hardware is noted. No consolidation seen. Impression: Port-A-Cath projects as expected. No other acute abnormality seen. Reported By:
[2018-08-28 17:45] LABS: BILIRUBIN,URINE NEGATIVE (NEGATIVE); BLOOD/HEMOGLOBIN,URINE NEGATIVE (NEGATIVE); GLUCOSE, URINE NEGATIVE (NEGATIVE); KETONES,URINE 2+ (NEGATIVE); LEUKOCYTE ESTERASE ,URINE 1+ (NEGATIVE); NITRITES,URINE NEGATIVE (NEGATIVE); PROTEIN,URINE 3+ (NEGATIVE); UROBILINOGEN,URINE 2+ (NORMAL)
[2018-08-28 17:55] LABS: APPEARANCE,URINE SLIGHTLY HAZY (CLEAR); COLOR,URINE AMBER (YELLOW)
[2018-08-28 17:56] LABS: AMORPHOUS SEDIMENT,UR 2+ /HPF (NEGATIVE); BACTERIA,URINE TRACE /HPF (NEGATIVE); RBC,URINE 0-2 /HPF (NONE SEEN); SQUAMOUS EPITHELIAL CELL,UR FEW /HPF (NEGATIVE)
[2018-08-28] MEDS ORDERED: NS 250 ML IV 250 ML ONE (18:11)
[2018-08-28] MEDS ORDERED: RESTORIL CAP 15 MG PO PRN (19:45)
[2018-08-28] MEDS ORDERED: XANAX PO PRN (19:45)
[2018-08-28] MEDS ORDERED: SNACK - Diabetic Appropriate PO SCH (20:00)
[2018-08-28 20:59] VITALS: BMI 27.9
[2018-08-28] MEDS: LIORESAL PO SCH (21:25)
[2018-08-28] MEDS: PERIACTIN TAB 4 MG PO SCH (21:27)
[2018-08-28] MEDS: ALBUMIN HUMAN 25%- 100 ML 100 ML IV SCH (21:32)
[2018-08-28] MEDS ORDERED: BUTT CREAM (COMPOUND) TOP PRN (21:38)
--- NOTE | 2018-08-28 21:44 | CT ---
CT head without contrast Indication: Altered mental status. Comparison: No recent prior brain imaging Technique: Axial images from the skull base to the vertex without contrast. Coronal and sagittal reformats provided Findings: Paranasal sinuses and mastoid air cells are clear. No osseous lesion is seen. There is no acute intracranial hemorrhage, mass or mass effect. No extra-axial fluid collection or abnormal area of hypoattenuation to suggest infarction identified. Impression: No acute intracranial hemorrhage Reported By:
--- NOTE | 2018-08-28 21:50 | CT ---
CT abdomen and pelvis with contrast Indication: Abdominal pain and distention. History of breast cancer, metastatic. Comparison: No recent cross-sectional imaging of the abdomen. Bone scan from 08/09/2018 reviewed Technique: Helical images through the abdomen and pelvis after IV contrast. Coronal and sagittal reformats provided. Findings: Limited images through the lower chest shows small right effusion. Review of bone windows shows multiple lucent lesions. See lucency at L4 on sagittal image 37. Lucency at L2 is noted on axial image 53. Multiple lucent lesions are seen in the left iliac bone on axial image 93. There is lucency at the right ischial tuberosity, presumably metastatic. Fracture of the right hip is suspected, incompletely visualized. Abdomen: The liver is filled with innumerable metastatic lesions and is markedly enlarged. The spleen, pancreas, adrenal glands, stomach and small bowel show no acute abnormality. The colon and appendix show no acute abnormality. IVC filter noted. Vasculature is normal. Kidneys shows no hydroureteronephrosis. Gallbladder is normal. Pelvis: Urinary bladder is partially visualized thoracic spine Mcdonald catheter. Ascites seen in the pelvis. Rectum is normal where visualized. No adnexal region lesions seen. Uterus is presumably absent. Impression: 1. Massively enlarged liver with innumerable metastatic lesions scattered throughout the liver. Hepatic dysfunction may be present given the ascites and large metastatic burden. Compare with any available priors 2. Multiple osseous lytic lesions compatible with bony metastatic disease 3. Small right effusion, spine DJD, vascular calcifications and other findings as above without other acute abnormality to explain the patient's symptoms. Reported By:
[2018-08-29 05:33] LABS: AMMONIA 32 umol/L (11-32)
[2018-08-29 05:34] LABS: BASOPHILS # (AUTO) 0.1 X10^3/uL (0.0-0.1); BASOPHILS % (AUTO) 0.8 % (0.2-1.0); EOSINOPHILS # (AUTO) 0.2 x10^3/uL (0.0-0.2); EOSINOPHILS % (AUTO) 2.2 % (0.9-2.9); HEMATOCRIT 30.1 % (36.0-47.0); HEMOGLOBIN 9.6 g/dL (12.0-16.0); LYMPHOCYTES # (AUTO) 1.9 X10^3/uL (1.3-2.9); LYMPHOCYTES % (AUTO) 19.7 % (21.0-51.0); MEAN CORPUSCULAR HGB CONC 31.8 g/dL (33.0-35.0); MEAN PLATELET VOLUME 9.5 fL (7.4-11.0); MONOCYTES % (AUTO) 10.7 % (0.0-13.0); NEUTROPHILS # (AUTO) 6.5 x10^3/uL (2.2-4.8); NEUTROPHILS % (AUTO) 66.6 % (42.0-75.0); PLATELET COUNT 348 X10^3/uL (150.0-450.0); RED BLOOD COUNT 3.54 X10^6/uL (3.5-5.4); RED CELL DISTRIBUTION WIDTH 17.3 % (11.6-16.5); WHITE BLOOD COUNT 9.8 X10^3/uL (3.6-10.0)
[2018-08-29 05:46] LABS: ALANINE AMINOTRANSFERASE 20 Units/L (12-78); ALBUMIN 1.8 g/dL (3.4-5.0); ALKALINE PHOSPHATASE 301 Units/L (46-116); ASPARTATE AMINO TRANSFERASE 102 Units/L (15-37); BLOOD UREA NITROGEN 11 mg/dL (7-18); CALCIUM 8.5 mg/dL (8.5-10.1); CARBON DIOXIDE 24.3 mmol/L (21-32); CHLORIDE 106 mmol/L (98-107); COR CA(FOR HYPOALB) 10.3 mg/dL (8.5-10.1); CREATININE 0.82 mg/dL (0.55-1.02); SODIUM 140 mmol/L (136-145); TOTAL PROTEIN 6.1 g/dL (6.4-8.2); eGFR NON BLACK RACES > 60 (>60)
[2018-08-29] MEDS ORDERED: K-RIDER 10 MEQ/NS 100 ML 10 MEQ/100 ML BAG IV PRN (06:10)
[2018-08-29] MEDS ORDERED: POTASSIUM CHL 40 MEQ/NS 0.45% 500 ML IV PRN (06:10)
[2018-08-29] MEDS ORDERED: MICRO K EXTEN CAP 10 MEQ PO PRN (06:10)
[2018-08-29] MEDS ORDERED: KLOR-CON PO PRN (06:10)
[2018-08-29] MEDS ORDERED: POTASSIUM CHLORIDE LIQ 20 MEQ UDC PO PRN (06:10)
[2018-08-29] MEDS ORDERED: POTASSIUM CHL 60 MEQ/NS 0.45% 500 ML IV PRN (06:10)
[2018-08-29] MEDS ORDERED: K-DUR TAB 20 MEQ PO PRN (06:10)
[2018-08-29] MEDS ORDERED: LEXAPRO ONE (07:42)
[2018-08-29] MEDS: NS 1000 ML 1,000 ML IV SCH ×3 (08:42→18:17)
[2018-08-29] MEDS: HEMOCYTE-PLUS PO SCH (08:43)
[2018-08-29] MEDS: ALBUMIN HUMAN 25%- 100 ML 100 ML IV SCH (08:43)
[2018-08-29] MEDS: CLARITIN PO SCH (08:43)
[2018-08-29] MEDS: LEXAPRO PO SCH (08:43)
[2018-08-29] MEDS: XARELTO PO SCH (08:44)
[2018-08-29] MEDS: ZANTAC PO SCH (08:44)
[2018-08-29] MEDS: PROTONIX TAB 40 MG PO SCH (08:44)
[2018-08-29] MEDS: PERIACTIN TAB 4 MG PO SCH ×2 (08:44→21:06)
[2018-08-29] MEDS: LIORESAL PO SCH ×4 (08:44→21:06)
[2018-08-29] MEDS: LIPITOR TAB 10 MG PO SCH (08:44)
[2018-08-29] MEDS ORDERED: MAGNESIUM SULFATE 1 GRAM/100 mL PREMIX 2 G/200 ML BAG IV ONE (09:34)
[2018-08-29] MEDS: MAGNESIUM SULFATE 1 GRAM/100 mL PREMIX 1 GM/100 ML BAG IV PRN ×2 (09:50→10:55)
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
[2018-08-30 05:16] VITALS: BP 126/59
[2018-08-30 06:40] LABS: BASOPHILS # (AUTO) 0.1 X10^3/uL (0.0-0.1); BASOPHILS % (AUTO) 0.9 % (0.2-1.0); EOSINOPHILS # (AUTO) 0.2 x10^3/uL (0.0-0.2); EOSINOPHILS % (AUTO) 1.3 % (0.9-2.9); HEMATOCRIT 30.7 % (36.0-47.0); HEMOGLOBIN 9.6 g/dL (12.0-16.0); LYMPHOCYTES % (AUTO) 16.5 % (21.0-51.0); MEAN CORPUSCULAR HEMOGLOBIN 26.4 pg (27.0-34.0); MEAN CORPUSCULAR HGB CONC 31.4 g/dL (33.0-35.0); MEAN CORPUSCULAR VOLUME 84.1 fL (80.0-100.0); MEAN PLATELET VOLUME 9.2 fL (7.4-11.0); MONOCYTES # (AUTO) 1.3 x10^3/uL (0.3-0.8); NEUTROPHILS # (AUTO) 8.5 x10^3/uL (2.2-4.8); NEUTROPHILS % (AUTO) 70.3 % (42.0-75.0); PLATELET COUNT 386 X10^3/uL (150.0-450.0); RED BLOOD COUNT 3.64 X10^6/uL (3.5-5.4); RED CELL DISTRIBUTION WIDTH 17.1 % (11.6-16.5); WHITE BLOOD COUNT 12.2 X10^3/uL (3.6-10.0)
[2018-08-30 06:49] LABS: ALANINE AMINOTRANSFERASE 21 Units/L (12-78); ALKALINE PHOSPHATASE 325 Units/L (46-116); ASPARTATE AMINO TRANSFERASE 103 Units/L (15-37); BLOOD UREA NITROGEN 11 mg/dL (7-18); CALCIUM 8.7 mg/dL (8.5-10.1); CARBON DIOXIDE 23.3 mmol/L (21-32); CHLORIDE 105 mmol/L (98-107); COR CA(FOR HYPOALB) 10.3 mg/dL (8.5-10.1); COR NA(FOR HYPERGLY) 140 mmol/L (136-145); CREATININE 0.82 mg/dL (0.55-1.02); MAGNESIUM 1.9 mg/dL (1.7-2.9); SODIUM 139 mmol/L (136-145); TOTAL PROTEIN 6.7 g/dL (6.4-8.2); eGFR NON BLACK RACES > 60 (>60)
[2018-08-30] MEDS: NS 1000 ML 1,000 ML IV SCH (07:22)
[2018-08-30] MEDS ORDERED: LEXAPRO ONE (08:01)
[2018-08-30] MEDS: LEXAPRO PO SCH (09:38)
[2018-08-30] MEDS: CLARITIN PO SCH (09:39)
[2018-08-30] MEDS: HEMOCYTE-PLUS PO SCH (09:39)
[2018-08-30] MEDS: ALBUMIN HUMAN 25%- 100 ML 100 ML IV SCH (09:39)
[2018-08-30] MEDS: LIORESAL PO SCH ×2 (09:40→13:23)
[2018-08-30] MEDS: LIPITOR TAB 10 MG PO SCH (09:40)
[2018-08-30] MEDS: PERIACTIN TAB 4 MG PO SCH (09:41)
[2018-08-30] MEDS: XARELTO PO SCH (09:47)
[2018-08-30] MEDS: ZANTAC PO SCH (09:47)
[2018-08-30] MEDS: PROTONIX TAB 40 MG PO SCH (09:47)
== END 2018-08-30 13:34 | disposition home or self-care (01) | DRG 436 ==
LOC: MED/SURG 15:46
PROVIDERS: ADMIT Internal Medicine; ATTEND Internal Medicine
DX: R18.0 Malignant ascites; R40.4 Transient alteration of awareness; I10 Essential (primary) hypertension; C78.7 Secondary malignant neoplasm of liver and intrahepatic bile duct; G82.21 Paraplegia, complete; R26.89 Other abnormalities of gait and mobility; F32.89 Other specified depressive episodes; J90 Pleural effusion, not elsewhere classified; L89.319 Pressure ulcer of right buttock, unspecified stage; Z85.3 Personal history of malignant neoplasm of breast
CPT/HCPCS: 36415; 70450; 71010; 71045; 74177; 80053; 81001; 82140; 82150; 83690; 83735; 85025; 87040; 87086; 97162; 97166; A4216; A4222; P9047; J3475; J7030; J7050

== ENCOUNTER 2018-09-05 10:15 | Inpatient (IN) ==
[2018-09-05 15:20] LABS: BASOPHILS # (AUTO) 0.1 X10^3/uL (0.0-0.1); BASOPHILS % (AUTO) 1.4 % (0.2-1.0); EOSINOPHILS # (AUTO) 0.1 x10^3/uL (0.0-0.2); EOSINOPHILS % (AUTO) 1.1 % (0.9-2.9); HEMATOCRIT 35.6 % (36.0-47.0); HEMOGLOBIN 11.2 g/dL (12.0-16.0); LYMPHOCYTES # (AUTO) 1.3 X10^3/uL (1.3-2.9); LYMPHOCYTES % (AUTO) 13.7 % (21.0-51.0); MEAN CORPUSCULAR HEMOGLOBIN 26.6 pg (27.0-34.0); MEAN CORPUSCULAR HGB CONC 31.4 g/dL (33.0-35.0); MEAN CORPUSCULAR VOLUME 84.7 fL (80.0-100.0); MEAN PLATELET VOLUME 8.6 fL (7.4-11.0); MONOCYTES # (AUTO) 0.9 x10^3/uL (0.3-0.8); MONOCYTES % (AUTO) 9.5 % (0.0-13.0); NEUTROPHILS # (AUTO) 6.9 x10^3/uL (2.2-4.8); NEUTROPHILS % (AUTO) 74.3 % (42.0-75.0); PLATELET COUNT 472 X10^3/uL (150.0-450.0); RED CELL DISTRIBUTION WIDTH 17.1 % (11.6-16.5); WHITE BLOOD COUNT 9.3 X10^3/uL (3.6-10.0)
[2018-09-05 15:26] LABS: BILIRUBIN,URINE NEGATIVE (NEGATIVE); BLOOD/HEMOGLOBIN,URINE 1+ (NEGATIVE); GLUCOSE, URINE NEGATIVE (NEGATIVE); KETONES,URINE 1+ (NEGATIVE); LEUKOCYTE ESTERASE ,URINE 1+ (NEGATIVE); NITRITES,URINE POSITIVE (NEGATIVE); PROTEIN,URINE 4+ (NEGATIVE); UROBILINOGEN,URINE NORMAL (NORMAL)
--- NOTE | 2018-09-05 15:28 | CT ---
HISTORY: Altered mental status Study: CT brain without contrast Comparison: None Technique: Multiple axial images of the brain were obtained from the skull base to the vertex without administration of IV contrast. Findings: No acute intraparenchymal hemorrhage or mass can be identified. No extra-axial fluid collections are seen. No alteration in the attenuation of the brain parenchyma can be identified to suggest acute or subacute ischemic change. The ventricles, sulci, and cisterns demonstrate an appearance consistent with a mild degree of generalized atrophy. Patchy areas of decreased attenuation within the periventricular, subcortical, and subinsular white matter suggest changes of chronic small vessel ischemic disease. If symptoms or clinical concern persist recommend continued follow-up for further evaluation. IMPRESSION: No acute intracranial process can be identified. Mild generalized atrophy findings consistent with changes of chronic small vessel ischemic disease. Reported By:
[2018-09-05] MEDS ORDERED: ZOFRAN INJ 4 MG VIAL ONE (15:30)
[2018-09-05 15:35] VITALS: BMI 27.0
[2018-09-05] MEDS: ZOFRAN INJ 4 MG VIAL IVP PRN (15:39)
[2018-09-05 15:40] LABS: APPEARANCE,URINE CLOUDY (CLEAR); COLOR,URINE YELLOW (YELLOW)
[2018-09-05 15:41] LABS: BACTERIA,URINE 4+ /HPF (NEGATIVE); SQUAMOUS EPITHELIAL CELL,UR RARE /HPF (NEGATIVE)
[2018-09-05 15:44] LABS: ALANINE AMINOTRANSFERASE 27 Units/L (12-78); ALKALINE PHOSPHATASE 353 Units/L (46-116); AMYLASE 38 Units/L (25-115); ASPARTATE AMINO TRANSFERASE 165 Units/L (15-37); BLOOD UREA NITROGEN 13 mg/dL (7-18); CALCIUM 8.9 mg/dL (8.5-10.1); CARBON DIOXIDE 25.9 mmol/L (21-32); CHLORIDE 106 mmol/L (98-107); COR CA(FOR HYPOALB) 10.5 mg/dL (8.5-10.1); COR NA(FOR HYPERGLY) 144 mmol/L (136-145); LIPASE 83 Units/L (73-393); SODIUM 143 mmol/L (136-145); TOTAL PROTEIN 6.8 g/dL (6.4-8.2); eGFR NON BLACK RACES > 60 (>60)
[2018-09-05] MEDS: NS 1000 ML 1,000 ML IV SCH (15:46)
[2018-09-05 15:52] LABS: AMMONIA 40 umol/L (11-32)
[2018-09-05] MEDS ORDERED: ROCEPHIN VIAL 1 GRAM ONE (17:12)
[2018-09-05] MEDS: ROCEPHIN VIAL 1 GRAM IVP SCH (17:14)
[2018-09-06] MEDS: NS 1000 ML 1,000 ML IV SCH ×2 (03:33→18:00)
[2018-09-06 05:25] LABS: BASOPHILS # (AUTO) 0.1 X10^3/uL (0.0-0.1); BASOPHILS % (AUTO) 0.4 % (0.2-1.0); EOSINOPHILS % (AUTO) 0.1 % (0.9-2.9); HEMATOCRIT 31.7 % (36.0-47.0); HEMOGLOBIN 9.8 g/dL (12.0-16.0); LYMPHOCYTES # (AUTO) 1.3 X10^3/uL (1.3-2.9); LYMPHOCYTES % (AUTO) 8.4 % (21.0-51.0); MEAN CORPUSCULAR HEMOGLOBIN 26.2 pg (27.0-34.0); MEAN CORPUSCULAR VOLUME 84.7 fL (80.0-100.0); MEAN PLATELET VOLUME 9.2 fL (7.4-11.0); MONOCYTES # (AUTO) 0.9 x10^3/uL (0.3-0.8); MONOCYTES % (AUTO) 6.2 % (0.0-13.0); NEUTROPHILS # (AUTO) 12.9 x10^3/uL (2.2-4.8); NEUTROPHILS % (AUTO) 84.9 % (42.0-75.0); PLATELET COUNT 358 X10^3/uL (150.0-450.0); RED BLOOD COUNT 3.74 X10^6/uL (3.5-5.4); RED CELL DISTRIBUTION WIDTH 16.9 % (11.6-16.5); WHITE BLOOD COUNT 15.1 X10^3/uL (3.6-10.0)
[2018-09-06 05:34] LABS: ALANINE AMINOTRANSFERASE 24 Units/L (12-78); ALBUMIN 1.7 g/dL (3.4-5.0); ALKALINE PHOSPHATASE 285 Units/L (46-116); ASPARTATE AMINO TRANSFERASE 246 Units/L (15-37); BLOOD UREA NITROGEN 13 mg/dL (7-18); CALCIUM 8.4 mg/dL (8.5-10.1); CHLORIDE 109 mmol/L (98-107); COR CA(FOR HYPOALB) 10.2 mg/dL (8.5-10.1); COR NA(FOR HYPERGLY) 145 mmol/L (136-145); CREATININE 0.85 mg/dL (0.55-1.02); SODIUM 145 mmol/L (136-145); TOTAL PROTEIN 5.8 g/dL (6.4-8.2); eGFR NON BLACK RACES > 60 (>60)
[2018-09-06] MEDS ORDERED: K-DUR TAB 20 MEQ PO PRN (07:37)
[2018-09-06] MEDS ORDERED: K-RIDER 10 MEQ/NS 100 ML 10 MEQ/100 ML BAG IV PRN (07:37)
[2018-09-06] MEDS ORDERED: POTASSIUM CHL 40 MEQ/NS 0.45% 500 ML IV PRN (07:37)
[2018-09-06] MEDS ORDERED: MICRO K EXTEN CAP 10 MEQ PO PRN (07:37)
[2018-09-06] MEDS ORDERED: POTASSIUM CHL 60 MEQ/NS 0.45% 500 ML IV PRN (07:37)
[2018-09-06] MEDS ORDERED: POTASSIUM CHLORIDE LIQ 20 MEQ UDC PO PRN (07:37)
[2018-09-06] MEDS ORDERED: KLOR-CON PO PRN (07:37)
[2018-09-06] MEDS ORDERED: PHARMACY CONSULT - DOSE _____ XX SCH (09:00)
[2018-09-06] MEDS: MAGNESIUM SULFATE 1 GRAM/100 mL PREMIX 1 GM/100 ML BAG IV PRN ×2 (09:34→10:40)
[2018-09-06] MEDS: ROCEPHIN VIAL 1 GRAM IVP SCH (09:34)
[2018-09-06] MEDS ORDERED: XANAX PO PRN (13:24)
[2018-09-06] MEDS ORDERED: LEXAPRO ONE (13:37)
[2018-09-06] MEDS: LIORESAL PO SCH ×3 (13:44→21:00)
[2018-09-06] MEDS: CLARITIN PO SCH (13:44)
[2018-09-06] MEDS: ZOSYN VIAL 3.375 GRAMS 3.375 G in NS 100 ML IV + SPIKE MINIBAG* 100 ML IV SCH ×2 (13:44→21:02)
[2018-09-06] MEDS: PROTONIX TAB 40 MG PO SCH (13:44)
[2018-09-06] MEDS: HEMOCYTE-PLUS PO SCH (13:44)
[2018-09-06] MEDS: ZANTAC PO SCH (13:45)
[2018-09-06] MEDS: LEXAPRO PO SCH (13:45)
[2018-09-06] MEDS: TYLENOL 325 MG TAB PO PRN (21:00)
[2018-09-06] MEDS: XARELTO PO SCH (21:00)
[2018-09-06] MEDS: RESTORIL CAP 15 MG PO PRN (21:00)
[2018-09-06] MEDS: LIPITOR TAB 10 MG PO SCH (21:00)
[2018-09-06] MEDS: PERIACTIN TAB 4 MG PO SCH (21:00)
[2018-09-07 05:18] LABS: BASOPHILS # (AUTO) 0.1 X10^3/uL (0.0-0.1); BASOPHILS % (AUTO) 0.9 % (0.2-1.0); EOSINOPHILS # (AUTO) 0.1 x10^3/uL (0.0-0.2); EOSINOPHILS % (AUTO) 0.7 % (0.9-2.9); HEMATOCRIT 32.8 % (36.0-47.0); HEMOGLOBIN 10.2 g/dL (12.0-16.0); LYMPHOCYTES # (AUTO) 1.9 X10^3/uL (1.3-2.9); LYMPHOCYTES % (AUTO) 15.6 % (21.0-51.0); MEAN CORPUSCULAR HEMOGLOBIN 26.4 pg (27.0-34.0); MEAN CORPUSCULAR VOLUME 84.9 fL (80.0-100.0); MEAN PLATELET VOLUME 9.2 fL (7.4-11.0); MONOCYTES # (AUTO) 1.5 x10^3/uL (0.3-0.8); MONOCYTES % (AUTO) 12.6 % (0.0-13.0); NEUTROPHILS # (AUTO) 8.5 x10^3/uL (2.2-4.8); NEUTROPHILS % (AUTO) 70.2 % (42.0-75.0); PLATELET COUNT 322 X10^3/uL (150.0-450.0); RED BLOOD COUNT 3.86 X10^6/uL (3.5-5.4); WHITE BLOOD COUNT 12.2 X10^3/uL (3.6-10.0)
[2018-09-07 05:36] LABS: ALANINE AMINOTRANSFERASE 29 Units/L (12-78); ALBUMIN 1.6 g/dL (3.4-5.0); ALKALINE PHOSPHATASE 304 Units/L (46-116); ASPARTATE AMINO TRANSFERASE 318 Units/L (15-37); BLOOD UREA NITROGEN 14 mg/dL (7-18); CALCIUM 8.4 mg/dL (8.5-10.1); CHLORIDE 109 mmol/L (98-107); COR CA(FOR HYPOALB) 10.3 mg/dL (8.5-10.1); COR NA(FOR HYPERGLY) 143 mmol/L (136-145); CREATININE 1.02 mg/dL (0.55-1.02); SODIUM 143 mmol/L (136-145); TOTAL PROTEIN 5.8 g/dL (6.4-8.2); eGFR NON BLACK RACES 59 (>60)
[2018-09-07] MEDS: ZOSYN VIAL 3.375 GRAMS 3.375 G in NS 100 ML IV + SPIKE MINIBAG* 100 ML IV SCH ×2 (05:49→14:53)
[2018-09-07] MEDS: NS 1000 ML 1,000 ML IV SCH ×2 (05:49→18:45)
[2018-09-07] MEDS ORDERED: LEXAPRO ONE (10:12)
[2018-09-07] MEDS: PERIACTIN TAB 4 MG PO SCH ×2 (10:16→22:17)
[2018-09-07] MEDS: ZANTAC PO SCH (10:17)
[2018-09-07] MEDS: HEMOCYTE-PLUS PO SCH (10:17)
[2018-09-07] MEDS: PROTONIX TAB 40 MG PO SCH (10:17)
[2018-09-07] MEDS: LIORESAL PO SCH ×4 (10:17→22:17)
[2018-09-07] MEDS: LEXAPRO PO SCH (10:21)
[2018-09-07] MEDS: CLARITIN PO SCH (11:02)
--- NOTE | 2018-09-07 21:35 | DR.UPDATE ---
H&P Update History and Physical Update: History and Physical reviewed and patient examined. Changes noted Yes with the following: H&P WAS COMPLETED WITH HER LAST VISIT. SHE HAS A PRESENT DIAGNOSIS OF METASTATIC BREAST CANCER. METS ARE IN THE LIVER AND BONES. SHE PRESENTED TO THE HOSPITAL TODAY A DIRECT ADMISSION DUE TO LETHARGY, WEAKNESS, AND ALTERED MENTAL STATUS. ON ARRIVAL, VITALS WERE 98.8-102-25-95%-126/59. LABS WERE OBTAINED. ABNORMAL LAB VALUES INCLUDE THE FOLLOWING: HGB 11.2, HCT 35.6, GLUCOSE 152, AST 165, ALK PHOS 353, AMMONIA 40, ALBUMIN 2.0, GLOBULIN 4.8. URINALYSIS REVEALED: WBC 10-20, RBC 5-10, BACTERIA 4+, LEUKOCYTES 1+, NITRITE POSITIVE. URINE AND BLOOD CULTURES OBTAINED. BRAIN CT WAS OBTAINED AND REVEALED: No acute intracranial process can be identified. Mild generalized atrophy findings consistent with changes of chronic small vessel ischemic disease. SHE WAS STARTED ON NORMAL SALINE AT 80ML/HR, ROCEPHIN 1G IV DAILY, AND HOME MEDS RESUMED. WE PLAN TO FOLLOW-UP WITH AM LABS AND CONTINUE TO MONITOR. Prescription drug monitoring program results: PDMP reviewed and no concerns identified
[2018-09-07] MEDS: XARELTO PO SCH (22:17)
[2018-09-07] MEDS: RESTORIL CAP 15 MG PO PRN (22:17)
[2018-09-07] MEDS: LIPITOR TAB 10 MG PO SCH (22:17)
[2018-09-07] MEDS: INVANZ INJ 1 GM VIAL 1 GM in NS 100 ML IV + SPIKE MINIBAG* 100 ML IV SCH (22:20)
[2018-09-08] MEDS: TYLENOL 325 MG TAB PO PRN (00:20)
[2018-09-08] MEDS: ZOFRAN INJ 4 MG VIAL IVP PRN (00:20)
[2018-09-08] MEDS: NS 1000 ML 1,000 ML IV SCH ×3 (06:05→21:12)
[2018-09-08 06:18] LABS: BASOPHILS # (AUTO) 0.1 X10^3/uL (0.0-0.1); BASOPHILS % (AUTO) 1.3 % (0.2-1.0); EOSINOPHILS % (AUTO) 0.2 % (0.9-2.9); HEMATOCRIT 31.9 % (36.0-47.0); LYMPHOCYTES # (AUTO) 1.6 X10^3/uL (1.3-2.9); LYMPHOCYTES % (AUTO) 14.3 % (21.0-51.0); MEAN CORPUSCULAR HEMOGLOBIN 26.5 pg (27.0-34.0); MEAN CORPUSCULAR HGB CONC 31.2 g/dL (33.0-35.0); MEAN CORPUSCULAR VOLUME 85.1 fL (80.0-100.0); MEAN PLATELET VOLUME 9.3 fL (7.4-11.0); MONOCYTES # (AUTO) 1.4 x10^3/uL (0.3-0.8); MONOCYTES % (AUTO) 12.7 % (0.0-13.0); NEUTROPHILS # (AUTO) 7.9 x10^3/uL (2.2-4.8); NEUTROPHILS % (AUTO) 71.5 % (42.0-75.0); PLATELET COUNT 296 X10^3/uL (150.0-450.0); RED BLOOD COUNT 3.75 X10^6/uL (3.5-5.4); RED CELL DISTRIBUTION WIDTH 16.6 % (11.6-16.5)
[2018-09-08 06:34] LABS: ALANINE AMINOTRANSFERASE 20 Units/L (12-78); ALBUMIN 1.5 g/dL (3.4-5.0); ALKALINE PHOSPHATASE 291 Units/L (46-116); ASPARTATE AMINO TRANSFERASE 204 Units/L (15-37); BLOOD UREA NITROGEN 11 mg/dL (7-18); CALCIUM 8.3 mg/dL (8.5-10.1); CHLORIDE 109 mmol/L (98-107); COR CA(FOR HYPOALB) 10.3 mg/dL (8.5-10.1); COR NA(FOR HYPERGLY) 143 mmol/L (136-145); CREATININE 0.84 mg/dL (0.55-1.02); SODIUM 142 mmol/L (136-145); TOTAL PROTEIN 5.5 g/dL (6.4-8.2); eGFR NON BLACK RACES > 60 (>60)
[2018-09-08 06:46] LABS: HEMOGLOBIN A1C 5.3 %
[2018-09-08] MEDS ORDERED: LEXAPRO ONE (10:03)
[2018-09-08] MEDS: HEMOCYTE-PLUS PO SCH (10:12)
[2018-09-08] MEDS: PERIACTIN TAB 4 MG PO SCH ×2 (10:12→21:13)
[2018-09-08] MEDS: LIORESAL PO SCH ×4 (10:12→21:13)
[2018-09-08] MEDS: LEXAPRO PO SCH (10:13)
[2018-09-08] MEDS: CLARITIN PO SCH (10:13)
[2018-09-08] MEDS: ZANTAC PO SCH (10:13)
[2018-09-08] MEDS: PROTONIX TAB 40 MG PO SCH (10:13)
[2018-09-08] MEDS: INVANZ INJ 1 GM VIAL 1 GM in NS 100 ML IV + SPIKE MINIBAG* 100 ML IV SCH (21:12)
[2018-09-08] MEDS: RESTORIL CAP 15 MG PO PRN (21:13)
[2018-09-08] MEDS: LIPITOR TAB 10 MG PO SCH (21:13)
[2018-09-08] MEDS: XARELTO PO SCH (21:13)
[2018-09-08] MEDS: MAGNESIUM SULFATE 1 GRAM/100 mL PREMIX 1 GM/100 ML BAG IV PRN ×2 (22:40→23:45)
[2018-09-09 05:49] LABS: BASOPHILS # (AUTO) 0.1 X10^3/uL (0.0-0.1); EOSINOPHILS # (AUTO) 0.1 x10^3/uL (0.0-0.2); EOSINOPHILS % (AUTO) 1.3 % (0.9-2.9); HEMATOCRIT 32.1 % (36.0-47.0); HEMOGLOBIN 9.9 g/dL (12.0-16.0); LYMPHOCYTES # (AUTO) 2.2 X10^3/uL (1.3-2.9); LYMPHOCYTES % (AUTO) 19.1 % (21.0-51.0); MEAN CORPUSCULAR HEMOGLOBIN 26.1 pg (27.0-34.0); MEAN CORPUSCULAR VOLUME 84.2 fL (80.0-100.0); MEAN PLATELET VOLUME 9.2 fL (7.4-11.0); MONOCYTES # (AUTO) 1.6 x10^3/uL (0.3-0.8); MONOCYTES % (AUTO) 13.6 % (0.0-13.0); NEUTROPHILS # (AUTO) 7.4 x10^3/uL (2.2-4.8); PLATELET COUNT 342 X10^3/uL (150.0-450.0); RED BLOOD COUNT 3.81 X10^6/uL (3.5-5.4); RED CELL DISTRIBUTION WIDTH 16.7 % (11.6-16.5); WHITE BLOOD COUNT 11.5 X10^3/uL (3.6-10.0)
[2018-09-09 06:03] LABS: ALANINE AMINOTRANSFERASE 17 Units/L (12-78); ALBUMIN 1.5 g/dL (3.4-5.0); ALKALINE PHOSPHATASE 311 Units/L (46-116); ASPARTATE AMINO TRANSFERASE 146 Units/L (15-37); BLOOD UREA NITROGEN 10 mg/dL (7-18); CALCIUM 8.1 mg/dL (8.5-10.1); CARBON DIOXIDE 20.8 mmol/L (21-32); CHLORIDE 108 mmol/L (98-107); COR CA(FOR HYPOALB) 10.1 mg/dL (8.5-10.1); CREATININE 0.89 mg/dL (0.55-1.02); SODIUM 139 mmol/L (136-145); TOTAL PROTEIN 5.6 g/dL (6.4-8.2); eGFR NON BLACK RACES > 60 (>60)
[2018-09-09] MEDS: NS 1000 ML 1,000 ML IV SCH (06:20)
[2018-09-09] MEDS ORDERED: LEXAPRO ONE (09:50)
[2018-09-09] MEDS: PERIACTIN TAB 4 MG PO SCH (09:57)
[2018-09-09] MEDS: LIORESAL PO SCH ×2 (09:57→13:05)
[2018-09-09] MEDS: PROTONIX TAB 40 MG PO SCH (09:57)
[2018-09-09] MEDS: LEXAPRO PO SCH (09:57)
[2018-09-09] MEDS: CLARITIN PO SCH (09:57)
[2018-09-09] MEDS: ZANTAC PO SCH (09:57)
[2018-09-09] MEDS: HEMOCYTE-PLUS PO SCH (09:57)
--- NOTE | 2018-09-09 11:07 | VAS ---
HISTORY: Bilateral leg swelling Study: Venous Doppler ultrasound of the lower extremities Comparison: None TECHNIQUE: Multiple evangelista scale and color flow Doppler images of the deep venous system were obtained of the right and left lower extremity. FINDINGS: The deep venous system of the right and left lower extremities was evaluated from the level of the common femoral vein through the popliteal vein. Normal color flow and augmentation can be observed. In addition, normal compression is seen throughout the deep venous system. IMPRESSION: 1. Negative for DVT. Reported By:
[2018-09-09 12:57] VITALS: BP 115/62
--- NOTE | 2018-09-12 20:19 | PCM.PROG ---
Progress Note - Progress Note for Day of Date of Exam: 09/06/18 - Subjective Subjective: WAS ADMITTED FOR LETHARGY, GENERALIZED WEAKNESS, AND METASTATIC DISEASE. TODAY, SHE IS ALERT, LYING IN BED ON MORNING ROUNDS. SHE RESPONDS APPROPRIATELY THIS MORNING. STAFF AND FAMILY REPORT THAT SHE WAS CONFUSED THROUGHOUT THE NIGHT AT TIMES. SHE CONTINUES WITH GENERALIZED WEAKNESS THIS MORNING. SHE ALSO REPORTS GENERALIZED PAIN. SHE STATES THAT MOST OF HER PAIN IS IN HER LEGS THIS MORNING. SHE HAS BEEN REFERRED TO , ONCOLOGIST DUE TO METASTATIC DISEASE, HOWEVER, SHE HAS NOT BEEN ABLE TO OBTAIN A FOLLOW-UP APPOINTMENT WITH HIM YET. ON EXAMINATION, HEART IS REGULAR IN RATE AND RHYTHM. BILATERAL LUNGS ARE NOTED WITH DIMINISHED LUNG SOUNDS THROUGHOUT. ABDOMEN IS ROUND, SOFT, AND NOTED WITH MILD DIFFUSE TENDERNESS. HER VITALS THIS MORNING ARE: 97.7-93-18-96%-113/59. LABS WERE OBTAINED. ABNORMAL LAB VALUES INCLUDE THE FOLLOWING: WBC 15.1, HG 9.8, HCT 31.7, CHLORIDE 109, GLUCOSE 118, CALCIUM 8.4, MAGNESIUM 1.5, AST 246, ALK PHOS 285, TOTAL PROTEIN 5.8, ALBUMIN 1.7. BLOOD AND URINE CULTURES ARE PENDING. SHE IS CURRENTLY RECEIVING NORMAL SALINE AT 80ML/HR AND ROCEPHIN 1G IV DAILY. WE WILL DISCONTINUE THE ROCEPHIN ANS START ZOSYN TODAY. WE WILL ALSO START THE POTASSIUM AND MAGNESIUM PROTOCOLS. OTHERWISE, WE WILL FOLLOW UP WITH AM LABS AND CONTINUE TO MONITOR. - Past Medical Family Social History Past Med/Fam/Surg Hx: No changes since H&P Allergies: Allergies trimethoprim [From Bactrim] Adverse Reaction (Mild, Verified 08/28/18 21:02) sulfamethoxazole [From Bactrim] Adverse Reaction (Verified 08/28/18 21:02) - Review of Systems ROS: No change since H&P - Vital Signs and I&O's Vital Signs: Temperature 98.6 F Pulse Rate [Left Brachial] 97 Pulse Rate 97 Respiratory Rate 20 Blood Pressure [Right Arm] 123/58 Blood Pressure [Left Arm] 115/62 Blood Pressure 139/63 O2 Sat by Pulse Oximetry 91 Intake and Output: Intake & Output 09/10/18 09/11/18 09/12/18 09/13/18 11:59 11:59 11:59 11:59 Intake Total 480 / 480 Output Total 600 / 600 Balance -120 / -120 - Physical Exam Oriented: Person Eyes: Normal Ear: Normal Nose: Normal Throat: Normal Respiratory: Generalized, Diminished Cardiovascular: Normal. negative: S3, S4, Murmur : Normal Auscultation: Bowel Sounds: Normal Palpation: Normal Tenderness: Diffuse, Mild Skin: Normal Musculoskeletal: Right, Left, Shoulder, Arm, Leg, Tender Psychiatric: Normal Mood Description: Calm Affect: Normal Speech Pattern: Clear, Appropriate - Laboratory and Diagnostics Result Diagrams: 09/09/18 05:28 09/09/18 05:28 Labs: 09/05/18 15:04 Blood Blood Culture - Final Enterobacter Aerogenes 09/05/18 14:56 Blood Blood Culture - Final Enterobacter Aerogenes 09/05/18 14:45 Urine,Catheterized Urine Culture - Final Klebsiella Pneumoniae Escherichia Coli Laboratory WBC 11.5 X10^3/uL (3.6-10.0) H 09/09/18 05:28 RBC 3.81 X10^6/uL (3.5-5.4) 09/09/18 05:28 Hgb 9.9 g/dL (12.0-16.0) L 09/09/18 05:28 Hct 32.1 % (36.0-47.0) L 09/09/18 05:28 MCV 84.2 fL (80.0-100.0) 09/09/18 05:28 MCH 26.1 pg (27.0-34.0) L 09/09/18 05:28 MCHC 31.0 g/dL (33.0-35.0) L 09/09/18 05:28 RDW 16.7 % (11.6-16.5) H 09/09/18 05:28 Plt Count 342 X10^3/uL (150.0-450.0) 09/09/18 05:28 MPV 9.2 fL (7.4-11.0) 09/09/18 05:28 Neut % (Auto) 65.0 % (42.0-75.0) 09/09/18 05:28 Lymph % (Auto) 19.1 % (21.0-51.0) L 09/09/18 05:28 [place] % (Auto) 13.6 % (0.0-13.0) H 09/09/18 05:28 Eos % (Auto) 1.3 % (0.9-2.9) 09/09/18 05:28 Baso % (Auto) 1.0 % (0.2-1.0) 09/09/18 05:28 Neut # (Auto) 7.4 x10^3/uL (2.2-4.8) H 09/09/18 05:28 Lymph # (Auto) 2.2 X10^3/uL (1.3-2.9) 09/09/18 05:28 [place] # (Auto) 1.6 x10^3/uL (0.3-0.8) H 09/09/18 05:28 Eos # (Auto) 0.1 x10^3/uL (0.0-0.2) 09/09/18 05:28 Baso # (Auto) 0.1 X10^3/uL (0.0-0.1) 09/09/18 05:28 Absolute Nucleated RBC 0.0 /100WBC 09/09/18 05:28 Sodium 139 mmol/L (136-145) 09/09/18 05:28 Corrected Sodium TNP 09/09/18 05:28 Potassium 4.0 mmol/L (3.5-5.1) 09/09/18 05:28 Chloride 108 mmol/L (98-107) H 09/09/18 05:28 Carbon Dioxide 20.8 mmol/L (21-32) L 09/09/18 05:28 BUN 10 mg/dL (7-18) 09/09/18 05:28 Creatinine 0.89 mg/dL (0.55-1.02) 09/09/18 05:28 Est GFR (MDRD) Af Amer > 60 (>60) 09/09/18 05:28 Est GFR (MDRD) Non-Af > 60 (>60) 09/09/18 05:28 Glucose 90 mg/dL (65-99) 09/09/18 05:28 POC Glucose (mg/dL) 116 mg/dL (65-99) H 09/08/18 05:18 Hemoglobin A1c 5.3 % 09/08/18 06:00 Calcium 8.1 mg/dL (8.5-10.1) L 09/09/18 05:28 Corrected Calcium 10.1 mg/dL (8.5-10.1) 09/09/18 05:28 Magnesium 1.9 mg/dL (1.7-2.9) 09/09/18 05:28 Total Bilirubin 0.60 mg/dL (0.2-1.0) 09/09/18 05:28 AST 146 Units/L (15-37) H 09/09/18 05:28 ALT 17 Units/L (12-78) 09/09/18 05:28 Alkaline Phosphatase 311 Units/L (46-116) H 09/09/18 05:28 Ammonia 40 umol/L (11-32) H 09/05/18 15:04 Total Protein 5.6 g/dL (6.4-8.2) L 09/09/18 05:28 Albumin 1.5 g/dL (3.4-5.0) L 09/09/18 05:28 Globulin 4.1 g/dL (2.5-4.5) 09/09/18 05:28 Albumin/Globulin Ratio 0.4 Ratio (1.1-2.1) L 09/09/18 05:28 Amylase 38 Units/L (25-115) 09/05/18 15:04 Lipase 83 Units/L (73-393) 09/05/18 15:04 Specimen Type Catherized urine 09/05/18 14:45 Urine Color Yellow (YELLOW) 09/05/18 14:45 Urine Appearance Cloudy (CLEAR) 09/05/18 14:45 Urine pH 6.0 (5.0 - 8.0) 09/05/18 14:45 Ur Specific [place] 1.015 (1.000-1.030) 09/05/18 14:45 Urine Protein 4+ (NEGATIVE) 09/05/18 14:45 Urine Glucose (UA) Negative (NEGATIVE) 09/05/18 14:45 Urine Ketones 1+ (NEGATIVE) 09/05/18 14:45 Urine Occult Blood 1+ (NEGATIVE) 09/05/18 14:45 Urine Nitrite Positive (NEGATIVE) 09/05/18 14:45 Urine Bilirubin Negative (NEGATIVE) 09/05/18 14:45 Urine Urobilinogen Normal (NORMAL) 09/05/18 14:45 Ur Leukocyte Esterase 1+ (NEGATIVE) 09/05/18 14:45 Urine RBC 5-10 /HPF (NONE SEEN) 09/05/18 14:45 Urine WBC 10-20 /HPF (NONE SEEN) 09/05/18 14:45 Ur Squamous Epith Cells Rare /HPF (NEGATIVE) 09/05/18 14:45 Urine Bacteria 4+ /HPF (NEGATIVE) 09/05/18 14:45 Ur Culture Indicated? Yes/culture set up 09/05/18 14:45 - Plan (1) Urinary tract infection Status: Acute Qualifiers: Urinary tract infection type: acute cystitis Hematuria presence: with hematuria Qualified Code(s): N30.01 - Acute cystitis with hematuria Plan: IV ZOSYN, IV FLUIDS, BLOOD AND URINE CULTURES PENDING, CONTINUE TO MONITOR (2) Generalized weakness Status: Acute (3) Altered mental status Status: Acute Qualifiers: Altered mental status type: transient alteration of awareness Qualified Code(s): R40.4 - Transient alteration of awareness (4) Metastatic disease Status: Acute
--- NOTE | 2018-09-12 20:33 | PCM.PROG ---
Progress Note - Progress Note for Day of Date of Exam: 09/07/18 - Subjective Subjective: IS BEING TREATED FOR A UTI, GENERALIZED WEAKNESS, AND METASTATIC DISEASE. TODAY, SHE IS ALERT AND ORIENTED, LYING IN BED ON MORNING ROUNDS. SHE IS MORE ALERT TODAY COMPARED TO YESTERDAY. SHE CONTINUES WITH GENERALIZED WEAKNESS AND GENERALIZED PAIN THIS MORNING. ON EXAMINATION, HEART IS REGULAR IN RATE AND RHYTHM. BILATERAL LUNGS ARE NOTED WITH DIMINISHED LUNG SOUNDS THROUGHOUT. ABDOMEN IS ROUND, SOFT, AND NOTED WITH MILD DIFFUSE TENDERNESS. HER VITALS THIS MORNING ARE: 97.7-93-18-96%-113/59. LABS WERE OBTAINED. ABNORMAL LAB VALUES INCLUDE THE FOLLOWING: WBC 15.1, HG 9.8, HCT 31.7, CHLORIDE 109, GLUCOSE 118, CALCIUM 8.4, MAGNESIUM 1.5, AST 246, ALK PHOS 285, TOTAL PROTEIN 5.8, ALBUMIN 1.7. BLOOD CULTURES REPORT GROWTH OF ENTEROBACTER AEROGENES. URINE CULTURE REPORTS GROWHT OF KLEBSIELLA PNEUMONIAE AND E.COLI. ALL ARE SENSITIVE TO INVANZ. WE WILL DISCONTINUE THE ZOSYN THAT SHE IS CURRENTLY RECEIVING AND START INVANZ 1G IV DAILY. OTHERWISE, WE WILL FOLLOW UP WITH AM LABS AND CONTINUE TO MONITOR. - Past Medical Family Social History Past Med/Fam/Surg Hx: No changes since H&P Allergies: Allergies trimethoprim [From Bactrim] Adverse Reaction (Mild, Verified 08/28/18 21:02) sulfamethoxazole [From Bactrim] Adverse Reaction (Verified 08/28/18 21:02) - Review of Systems ROS: No change since H&P - Vital Signs and I&O's Vital Signs: Temperature 98.6 F Pulse Rate [Left Brachial] 97 Pulse Rate 97 Respiratory Rate 20 Blood Pressure [Right Arm] 123/58 Blood Pressure [Left Arm] 115/62 Blood Pressure 139/63 O2 Sat by Pulse Oximetry 91 Intake and Output: Intake & Output 09/10/18 09/11/18 09/12/18 09/13/18 11:59 11:59 11:59 11:59 Intake Total 480 / 480 Output Total 600 / 600 Balance -120 / -120 - Physical Exam Oriented: Normal Eyes: Normal Ear: Normal Nose: Normal Throat: Normal Respiratory: Generalized, Diminished Cardiovascular: Normal. negative: S3, S4, Murmur : Normal Auscultation: Bowel Sounds: Normal Palpation: Normal Tenderness: Diffuse, Mild Skin: Normal Musculoskeletal: Right, Left, Shoulder, Arm, Leg, Tender Psychiatric: Normal Mood Description: Calm Affect: Normal Speech Pattern: Clear, Appropriate - Laboratory and Diagnostics Result Diagrams: 09/09/18 05:28 09/09/18 05:28 Labs: 09/05/18 15:04 Blood Blood Culture - Final Enterobacter Aerogenes 09/05/18 14:56 Blood Blood Culture - Final Enterobacter Aerogenes 09/05/18 14:45 Urine,Catheterized Urine Culture - Final Klebsiella Pneumoniae Escherichia Coli Laboratory WBC 11.5 X10^3/uL (3.6-10.0) H 09/09/18 05:28 RBC 3.81 X10^6/uL (3.5-5.4) 09/09/18 05:28 Hgb 9.9 g/dL (12.0-16.0) L 09/09/18 05:28 Hct 32.1 % (36.0-47.0) L 09/09/18 05:28 MCV 84.2 fL (80.0-100.0) 09/09/18 05:28 MCH 26.1 pg (27.0-34.0) L 09/09/18 05:28 MCHC 31.0 g/dL (33.0-35.0) L 09/09/18 05:28 RDW 16.7 % (11.6-16.5) H 09/09/18 05:28 Plt Count 342 X10^3/uL (150.0-450.0) 09/09/18 05:28 MPV 9.2 fL (7.4-11.0) 09/09/18 05:28 Neut % (Auto) 65.0 % (42.0-75.0) 09/09/18 05:28 Lymph % (Auto) 19.1 % (21.0-51.0) L 09/09/18 05:28 [place] % (Auto) 13.6 % (0.0-13.0) H 09/09/18 05:28 Eos % (Auto) 1.3 % (0.9-2.9) 09/09/18 05:28 Baso % (Auto) 1.0 % (0.2-1.0) 09/09/18 05:28 Neut # (Auto) 7.4 x10^3/uL (2.2-4.8) H 09/09/18 05:28 Lymph # (Auto) 2.2 X10^3/uL (1.3-2.9) 09/09/18 05:28 [place] # (Auto) 1.6 x10^3/uL (0.3-0.8) H 09/09/18 05:28 Eos # (Auto) 0.1 x10^3/uL (0.0-0.2) 09/09/18 05:28 Baso # (Auto) 0.1 X10^3/uL (0.0-0.1) 09/09/18 05:28 Absolute Nucleated RBC 0.0 /100WBC 09/09/18 05:28 Sodium 139 mmol/L (136-145) 09/09/18 05:28 Corrected Sodium TNP 09/09/18 05:28 Potassium 4.0 mmol/L (3.5-5.1) 09/09/18 05:28 Chloride 108 mmol/L (98-107) H 09/09/18 05:28 Carbon Dioxide 20.8 mmol/L (21-32) L 09/09/18 05:28 BUN 10 mg/dL (7-18) 09/09/18 05:28 Creatinine 0.89 mg/dL (0.55-1.02) 09/09/18 05:28 Est GFR (MDRD) Af Amer > 60 (>60) 09/09/18 05:28 Est GFR (MDRD) Non-Af > 60 (>60) 09/09/18 05:28 Glucose 90 mg/dL (65-99) 09/09/18 05:28 POC Glucose (mg/dL) 116 mg/dL (65-99) H 09/08/18 05:18 Hemoglobin A1c 5.3 % 09/08/18 06:00 Calcium 8.1 mg/dL (8.5-10.1) L 09/09/18 05:28 Corrected Calcium 10.1 mg/dL (8.5-10.1) 09/09/18 05:28 Magnesium 1.9 mg/dL (1.7-2.9) 09/09/18 05:28 Total Bilirubin 0.60 mg/dL (0.2-1.0) 09/09/18 05:28 AST 146 Units/L (15-37) H 09/09/18 05:28 ALT 17 Units/L (12-78) 09/09/18 05:28 Alkaline Phosphatase 311 Units/L (46-116) H 09/09/18 05:28 Ammonia 40 umol/L (11-32) H 09/05/18 15:04 Total Protein 5.6 g/dL (6.4-8.2) L 09/09/18 05:28 Albumin 1.5 g/dL (3.4-5.0) L 09/09/18 05:28 Globulin 4.1 g/dL (2.5-4.5) 09/09/18 05:28 Albumin/Globulin Ratio 0.4 Ratio (1.1-2.1) L 09/09/18 05:28 Amylase 38 Units/L (25-115) 09/05/18 15:04 Lipase 83 Units/L (73-393) 09/05/18 15:04 Specimen Type Catherized urine 09/05/18 14:45 Urine Color Yellow (YELLOW) 09/05/18 14:45 Urine Appearance Cloudy (CLEAR) 09/05/18 14:45 Urine pH 6.0 (5.0 - 8.0) 09/05/18 14:45 Ur Specific [place] 1.015 (1.000-1.030) 09/05/18 14:45 Urine Protein 4+ (NEGATIVE) 09/05/18 14:45 Urine Glucose (UA) Negative (NEGATIVE) 09/05/18 14:45 Urine Ketones 1+ (NEGATIVE) 09/05/18 14:45 Urine Occult Blood 1+ (NEGATIVE) 09/05/18 14:45 Urine Nitrite Positive (NEGATIVE) 09/05/18 14:45 Urine Bilirubin Negative (NEGATIVE) 09/05/18 14:45 Urine Urobilinogen Normal (NORMAL) 09/05/18 14:45 Ur Leukocyte Esterase 1+ (NEGATIVE) 09/05/18 14:45 Urine RBC 5-10 /HPF (NONE SEEN) 09/05/18 14:45 Urine WBC 10-20 /HPF (NONE SEEN) 09/05/18 14:45 Ur Squamous Epith Cells Rare /HPF (NEGATIVE) 09/05/18 14:45 Urine Bacteria 4+ /HPF (NEGATIVE) 09/05/18 14:45 Ur Culture Indicated? Yes/culture set up 09/05/18 14:45 - Plan (1) Urinary tract infection Status: Acute Qualifiers: Urinary tract infection type: acute cystitis Hematuria presence: with hematuria Qualified Code(s): N30.01 - Acute cystitis with hematuria Plan: INVANZ 1G IV DAILY, IV FLUIDS, BLOOD AND URINE CULTURES PENDING, CONTINUE TO MONITOR (2) Sepsis Status: Acute Qualifiers: Sepsis type: Escherichia coli Qualified Code(s): A41.51 - Sepsis due to Escherichia coli [E. coli] Plan: INVANZ 1G IV DAILY, CONTINUE TO MONITOR (3) Generalized weakness Status: Acute (4) Altered mental status Status: Acute Qualifiers: Altered mental status type: transient alteration of awareness Qualified Code(s): R40.4 - Transient alteration of awareness (5) Metastatic disease Status: Acute
--- NOTE | 2018-09-12 20:42 | PCM.PROG ---
Progress Note - Progress Note for Day of Date of Exam: 09/08/17 - Subjective Subjective: IS BEING TREATED FOR A UTI, GENERALIZED WEAKNESS, AND METASTATIC DISEASE. TODAY, SHE IS ALERT AND ORIENTED, LYING IN BED ON MORNING ROUNDS. SHE IS MORE ALERT TODAY COMPARED TO YESTERDAY. SHE CONTINUES WITH GENERALIZED WEAKNESS AND GENERALIZED PAIN THIS MORNING. ON EXAMINATION, HEART IS REGULAR IN RATE AND RHYTHM. BILATERAL LUNGS ARE NOTED WITH DIMINISHED LUNG SOUNDS THROUGHOUT. ABDOMEN IS ROUND, SOFT, AND NOTED WITH MILD DIFFUSE TENDERNESS. HER VITALS THIS MORNING ARE: 97.7-90-22-97%-128/73. LABS WERE OBTAINED. ABNORMAL LAB VALUES INCLUDE THE FOLLOWING: WBC 11.0, HGB 10.0, HCT 3 1.9, POTASSIUM 3.2, CHLORIDE 109, GLUCOSE 145, CALCIUM 8.3, AST 204, ALK PHOS 291, TOTAL PROTEIN 5.5, ALBUMIN 1.5. BLOOD CULTURES REPORT GROWTH OF ENTEROBACTER AEROGENES. URINE CULTURE REPORTS GROWHT OF KLEBSIELLA PNEUMONIAE AND E.COLI. SHE IS CURRENTLY RECEIVING INVANZ 1G IV DAILY. WE WILL CONTINUE WITH CURRENT PLAN OF CARE TODAY. OTHERWISE, WE WILL FOLLOW UP WITH AM LABS AND CONTINUE TO MONITOR. - Past Medical Family Social History Past Med/Fam/Surg Hx: No changes since H&P Allergies: Allergies trimethoprim [From Bactrim] Adverse Reaction (Mild, Verified 08/28/18 21:02) sulfamethoxazole [From Bactrim] Adverse Reaction (Verified 08/28/18 21:02) - Review of Systems ROS: No change since H&P - Vital Signs and I&O's Vital Signs: Temperature 98.6 F Pulse Rate [Left Brachial] 97 Pulse Rate 97 Respiratory Rate 20 Blood Pressure [Right Arm] 123/58 Blood Pressure [Left Arm] 115/62 Blood Pressure 139/63 O2 Sat by Pulse Oximetry 91 Intake and Output: Intake & Output 09/10/18 09/11/18 09/12/18 09/13/18 11:59 11:59 11:59 11:59 Intake Total 480 / 480 Output Total 600 / 600 Balance -120 / -120 - Physical Exam Oriented: Normal Eyes: Normal Ear: Normal Nose: Normal Throat: Normal Respiratory: Generalized, Diminished Cardiovascular: Normal. negative: S3, S4, Murmur : Normal Auscultation: Bowel Sounds: Normal Palpation: Normal Tenderness: Diffuse, Mild Skin: Normal Musculoskeletal: Right, Left, Shoulder, Arm, Leg, Tender Psychiatric: Normal Mood Description: Calm Affect: Normal Speech Pattern: Clear, Appropriate - Laboratory and Diagnostics Result Diagrams: 09/09/18 05:28 09/09/18 05:28 Labs: 09/05/18 15:04 Blood Blood Culture - Final Enterobacter Aerogenes 09/05/18 14:56 Blood Blood Culture - Final Enterobacter Aerogenes 09/05/18 14:45 Urine,Catheterized Urine Culture - Final Klebsiella Pneumoniae Escherichia Coli Laboratory WBC 11.5 X10^3/uL (3.6-10.0) H 09/09/18 05:28 RBC 3.81 X10^6/uL (3.5-5.4) 09/09/18 05:28 Hgb 9.9 g/dL (12.0-16.0) L 09/09/18 05:28 Hct 32.1 % (36.0-47.0) L 09/09/18 05:28 MCV 84.2 fL (80.0-100.0) 09/09/18 05:28 MCH 26.1 pg (27.0-34.0) L 09/09/18 05:28 MCHC 31.0 g/dL (33.0-35.0) L 09/09/18 05:28 RDW 16.7 % (11.6-16.5) H 09/09/18 05:28 Plt Count 342 X10^3/uL (150.0-450.0) 09/09/18 05:28 MPV 9.2 fL (7.4-11.0) 09/09/18 05:28 Neut % (Auto) 65.0 % (42.0-75.0) 09/09/18 05:28 Lymph % (Auto) 19.1 % (21.0-51.0) L 09/09/18 05:28 [place] % (Auto) 13.6 % (0.0-13.0) H 09/09/18 05:28 Eos % (Auto) 1.3 % (0.9-2.9) 09/09/18 05:28 Baso % (Auto) 1.0 % (0.2-1.0) 09/09/18 05:28 Neut # (Auto) 7.4 x10^3/uL (2.2-4.8) H 09/09/18 05:28 Lymph # (Auto) 2.2 X10^3/uL (1.3-2.9) 09/09/18 05:28 [place] # (Auto) 1.6 x10^3/uL (0.3-0.8) H 09/09/18 05:28 Eos # (Auto) 0.1 x10^3/uL (0.0-0.2) 09/09/18 05:28 Baso # (Auto) 0.1 X10^3/uL (0.0-0.1) 09/09/18 05:28 Absolute Nucleated RBC 0.0 /100WBC 09/09/18 05:28 Sodium 139 mmol/L (136-145) 09/09/18 05:28 Corrected Sodium TNP 09/09/18 05:28 Potassium 4.0 mmol/L (3.5-5.1) 09/09/18 05:28 Chloride 108 mmol/L (98-107) H 09/09/18 05:28 Carbon Dioxide 20.8 mmol/L (21-32) L 09/09/18 05:28 BUN 10 mg/dL (7-18) 09/09/18 05:28 Creatinine 0.89 mg/dL (0.55-1.02) 09/09/18 05:28 Est GFR (MDRD) Af Amer > 60 (>60) 09/09/18 05:28 Est GFR (MDRD) Non-Af > 60 (>60) 09/09/18 05:28 Glucose 90 mg/dL (65-99) 09/09/18 05:28 POC Glucose (mg/dL) 116 mg/dL (65-99) H 09/08/18 05:18 Hemoglobin A1c 5.3 % 09/08/18 06:00 Calcium 8.1 mg/dL (8.5-10.1) L 09/09/18 05:28 Corrected Calcium 10.1 mg/dL (8.5-10.1) 09/09/18 05:28 Magnesium 1.9 mg/dL (1.7-2.9) 09/09/18 05:28 Total Bilirubin 0.60 mg/dL (0.2-1.0) 09/09/18 05:28 AST 146 Units/L (15-37) H 09/09/18 05:28 ALT 17 Units/L (12-78) 09/09/18 05:28 Alkaline Phosphatase 311 Units/L (46-116) H 09/09/18 05:28 Ammonia 40 umol/L (11-32) H 09/05/18 15:04 Total Protein 5.6 g/dL (6.4-8.2) L 09/09/18 05:28 Albumin 1.5 g/dL (3.4-5.0) L 09/09/18 05:28 Globulin 4.1 g/dL (2.5-4.5) 09/09/18 05:28 Albumin/Globulin Ratio 0.4 Ratio (1.1-2.1) L 09/09/18 05:28 Amylase 38 Units/L (25-115) 09/05/18 15:04 Lipase 83 Units/L (73-393) 09/05/18 15:04 Specimen Type Catherized urine 09/05/18 14:45 Urine Color Yellow (YELLOW) 09/05/18 14:45 Urine Appearance Cloudy (CLEAR) 09/05/18 14:45 Urine pH 6.0 (5.0 - 8.0) 09/05/18 14:45 Ur Specific [place] 1.015 (1.000-1.030) 09/05/18 14:45 Urine Protein 4+ (NEGATIVE) 09/05/18 14:45 Urine Glucose (UA) Negative (NEGATIVE) 09/05/18 14:45 Urine Ketones 1+ (NEGATIVE) 09/05/18 14:45 Urine Occult Blood 1+ (NEGATIVE) 09/05/18 14:45 Urine Nitrite Positive (NEGATIVE) 09/05/18 14:45 Urine Bilirubin Negative (NEGATIVE) 09/05/18 14:45 Urine Urobilinogen Normal (NORMAL) 09/05/18 14:45 Ur Leukocyte Esterase 1+ (NEGATIVE) 09/05/18 14:45 Urine RBC 5-10 /HPF (NONE SEEN) 09/05/18 14:45 Urine WBC 10-20 /HPF (NONE SEEN) 09/05/18 14:45 Ur Squamous Epith Cells Rare /HPF (NEGATIVE) 09/05/18 14:45 Urine Bacteria 4+ /HPF (NEGATIVE) 09/05/18 14:45 Ur Culture Indicated? Yes/culture set up 09/05/18 14:45 - Plan (1) Urinary tract infection Status: Acute Qualifiers: Urinary tract infection type: acute cystitis Hematuria presence: with h ematuria Qualified Code(s): N30.01 - Acute cystitis with hematuria Plan: INVANZ 1G IV DAILY, IV FLUIDS, BLOOD AND URINE CULTURES PENDING, CONTINUE TO MONITOR (2) Sepsis Status: Acute Qualifiers: Sepsis type: Escherichia coli Qualified Code(s): A41.51 - Sepsis due to Escherichia coli [E. coli] Plan: INVANZ 1G IV DAILY, CONTINUE TO MONITOR (3) Generalized weakness Status: Acute (4) Altered mental status Status: Acute Qualifiers: Altered mental status type: transient alteration of awareness Qualified Code(s): R40.4 - Transient alteration of awareness (5) Metastatic disease Status: Acute
== END 2018-09-09 16:05 | disposition home or self-care (01) | DRG 689 ==
LOC: ICU → MED/SURG 09-06 16:00
PROVIDERS: ADMIT Internal Medicine; ATTEND Internal Medicine
DX: R40.4 Transient alteration of awareness; B96.29 Other Escherichia coli [E. coli] as the cause of diseases classified elsewhere; A41.59 Other Gram-negative sepsis; C79.51 Secondary malignant neoplasm of bone; R51 Headache; R60.0 Localized edema; C78.7 Secondary malignant neoplasm of liver and intrahepatic bile duct; Z85.3 Personal history of malignant neoplasm of breast; N30.01 Acute cystitis with hematuria; L89.314 Pressure ulcer of right buttock, stage 4; B96.1 Klebsiella pneumoniae [K. pneumoniae] as the cause of diseases classified elsewhere
CPT/HCPCS: 36415; 70450; 80053; 81001; 82140; 82150; 83036; 83690; 83735; 85025; 87040; 87076; 87077; 87086; 87088; 87186; 93970; A4216; A4222; G0378; J0696; J1335; J1642; J2405; J2543; J3475; J3490; J7030; J7050

== ENCOUNTER 2018-09-26 02:40 | Inpatient (IN) ==
[2018-09-26 03:14] VITALS: BMI 27.0
[2018-09-26] MEDS ORDERED: ZOFRAN INJ 4 MG VIAL IVP ONE (03:14)
[2018-09-26] MEDS ORDERED: MORPHINE SULFATE INJ 2 MG INJ IVP ONE (03:14)
[2018-09-26] MEDS ORDERED: ZOFRAN INJ 4 MG VIAL ONE (03:21)
[2018-09-26] MEDS ORDERED: MORPHINE SULFATE INJ 2 MG INJ ONE (03:22)
--- NOTE | 2018-09-26 03:29 | ED.ABDFE ---
HPI Time Seen Time Seen by Provider: 09/26/18 03:00 HPI Comment HPI Comment: A 58 y/o female presenting with c/o RUQ abdominal pain since Sunday (09/24/18). Onset was spontaneous. She is more bloated than usual. She gave a hx. of Breast ca. with liver mets. on p.o. chemo. for now. Reviewed Nurses Notes Review: Yes Source History Provided: Patient and Family Member Mode of arrival Mode of Arrival: EMS Timing Onset of Chief Complaint: 09/24/18 Came on: Gradually Duration Since Onset: Intermittent How lon Duration: Days Location Location: RUQ Severity Severity: Moderate Quality Quality: Colicky Context History of: None Modifying factors Worsening Factors: Nothing Improving Factors: Nothing Associated signs and symptoms Associated Signs and Symptoms: None PMH PMH Past Medical History Comment: Breast Cancer with liver mets., Cirrhosis Past Surgical History: Yes Surgical History: Hysterectomy and Ortho Surgery Family History Family Medical History: Diabetes Mellitus and Cancer Social History Do you use any recreational Drugs:: No ROS Review of Systems Constitutional: No Symptoms Reported Eyes: No Symptoms Reported ENTM: No Symptoms Reported Respiratoy: No Symptoms Reported Cardiovascular: No Symptoms Reported Gastrointestinal/Abdominal: Abdominal Pain (RUQ) and Other (Bloating) Genitourinary: No Symptoms Reported Neurological: No Symptoms Reported Musculoskeletal: No Symptoms Reported Integumentary: No Symptoms Reported Endocrine: No Symptoms Reported Psychiatric: No Symptoms Reported PE Vital Signs Vitals: Temperature 98.4 F Pulse Rate 121 Respiratory Rate 18 Blood Pressure [Right Arm] 123/58 Blood Pressure [Left Arm] 138/65 Blood Pressure 127/64 O2 Sat by Pulse Oximetry 97 General Limitations: No Limitations General Appearance: Alert and In No Apparent Distress Head Head Exam: Normal Inspection, Atraumatic and Normocephalic Eyes Eye exam: Normal Appearance and EOMI ENT ENT Exam: Normal Oropharynx and Mucous Membranes Moist Neck Neck Exam: Normal Inspection, Full ROM and Trachea Midline Chest Chest Inspection: Normal Inspection and Symmetric Chest Wall Rise Respiratory Respiratory Exam: Normal Lung Sounds Bilat Cardiovascular Cardiovascular Exam: Regular Rate, Normal Rhythm, +S1 and +S2 Abdominal Exam Abdominal Exam: Normal Bowel Sounds, Soft, Distention, Tenderness and Ascites Abdominal Tenderness: RUQ and Mild Rectal Rectal Exam: Deferred Back Back Exam: Normal Inspection Extremeties Extremities Exam: Normal Inspection External Exam: Female: Deferred and Other (An indwelling serrano catheter is present) Neurologic Neurological Exam: Alert and Oriented X3 Psychiatric Psychiatric Exam: Normal Affect and Normal Mood Skin Skin Exam: Dry and Normal Color ROR Labs Reviewed Laboratory Results Reviewed?: Yes Result Diagrams: 09/26/18 03:26 09/26/18 03:26 Laboratory: WBC 14.9 X10^3/uL (3.6-10.0) H 09/26/18 03:26 RBC 4.22 X10^6/uL (3.5-5.4) 09/26/18 03:26 Hgb 10.8 g/dL (12.0-16.0) L 09/26/18 03:26 Hct 35.3 % (36.0-47.0) L 09/26/18 03:26 MCV 83.7 fL (80.0-100.0) 09/26/18 03:26 MCH 25.7 pg (27.0-34.0) L 09/26/18 03:26 MCHC 30.7 g/dL (33.0-35.0) L 09/26/18 03:26 RDW 16.5 % (11.6-16.5) 09/26/18 03:26 Plt Count 409 X10^3/uL (150.0-450.0) 09/26/18 03:26 Plt Count Comment Adequate (ADEQUATE) 09/26/18 03:26 MPV 10.0 fL (7.4-11.0) 09/26/18 03:26 Neut % (Auto) 81.2 % (42.0-75.0) H 09/26/18 03:26 Lymph % (Auto) 8.4 % (21.0-51.0) L 09/26/18 03:26 [place] % (Auto) 8.9 % (0.0-13.0) 09/26/18 03:26 Eos % (Auto) 0.4 % (0.9-2.9) L 09/26/18 03:26 Baso % (Auto) 1.1 % (0.2-1.0) H 09/26/18 03:26 Neut # (Auto) 12.1 x10^3/uL (2.2-4.8) H 09/26/18 03:26 Lymph # (Auto) 1.2 X10^3/uL (1.3-2.9) L 09/26/18 03:26 [place] # (Auto) 1.3 x10^3/uL (0.3-0.8) H 09/26/18 03:26 Eos # (Auto) 0.1 x10^3/uL (0.0-0.2) 09/26/18 03:26 Baso # (Auto) 0.2 X10^3/uL (0.0-0.1) H 09/26/18 03:26 Absolute Nucleated RBC 0.1 /100WBC 09/26/18 03:26 Plt Morphology Comment Normal (NORMAL) 09/26/18 03:26 RBC Morphology Normal (NORMAL) 09/26/18 03:26 Sodium 138 mmol/L (136-145) 09/26/18 03:26 Corrected Sodium TNP 09/26/18 03:26 Potassium 4.4 mmol/L (3.5-5.1) 09/26/18 03:26 Chloride 105 mmol/L (98-107) 09/26/18 03:26 Carbon Dioxide 21.5 mmol/L (21-32) 09/26/18 03:26 BUN 15 mg/dL (7-18) 09/26/18 03:26 Creatinine 0.96 mg/dL (0.55-1.02) 09/26/18 03:26 Est GFR (MDRD) Af Amer > 60 (>60) 09/26/18 03:26 Est GFR (MDRD) Non-Af > 60 (>60) 09/26/18 03:26 Glucose 105 mg/dL (65-99) H 09/26/18 03:26 Calcium 8.8 mg/dL (8.5-10.1) 09/26/18 03:26 Corrected Calcium 10.7 mg/dL (8.5-10.1) H 09/26/18 03:26 Total Bilirubin 1.20 mg/dL (0.2-1.0) H 09/26/18 03:26 AST 441 Units/L (15-37) H 09/26/18 03:26 ALT 27 Units/L (12-78) 09/26/18 03:26 Alkaline Phosphatase 462 Units/L (46-116) H 09/26/18 03:26 Ammonia 26 umol/L (11-32) 09/26/18 03:26 Total Protein 6.0 g/dL (6.4-8.2) L 09/26/18 03:26 Albumin 1.6 g/dL (3.4-5.0) L 09/26/18 03:26 Globulin 4.4 g/dL (2.5-4.5) 09/26/18 03:26 Albumin/Globulin Ratio 0.4 Ratio (1.1-2.1) L 09/26/18 03:26 Other Results Comments: Hepatomegaly with progressive hepatic metastatic disease. Increasing Ascites, pleural effusions, anasarca. Diffuse bony metastatic disease. Opioid Opioid Risk Tool Total: 0 Total Score Risk Category: Low Risk Copyright: Anthony AMEZCUA predicting aberrant behaviors Diagnosis Discharge Problem: Cirrhosis of liver not due to alcohol, Metastasis to bone Ascites Qualifiers: Ascites type: malignant Qualified Code(s): R18.0 - Malignant ascites Breast cancer metastasized to liver Qualifiers: Laterality: unspecified laterality Qualified Code(s): C50.919 - Malignant neoplasm of unspecified site of unspecified female breast Instructions Instructions: Cirrhosis Forms: Excuse From Work
[2018-09-26 03:45] LABS: AMMONIA 26 umol/L (11-32); BASOPHILS # (AUTO) 0.2 X10^3/uL (0.0-0.1); BASOPHILS % (AUTO) 1.1 % (0.2-1.0); EOSINOPHILS # (AUTO) 0.1 x10^3/uL (0.0-0.2); EOSINOPHILS % (AUTO) 0.4 % (0.9-2.9); HEMATOCRIT 35.3 % (36.0-47.0); HEMOGLOBIN 10.8 g/dL (12.0-16.0); LYMPHOCYTES # (AUTO) 1.2 X10^3/uL (1.3-2.9); LYMPHOCYTES % (AUTO) 8.4 % (21.0-51.0); MEAN CORPUSCULAR HEMOGLOBIN 25.7 pg (27.0-34.0); MEAN CORPUSCULAR HGB CONC 30.7 g/dL (33.0-35.0); MEAN CORPUSCULAR VOLUME 83.7 fL (80.0-100.0); MONOCYTES # (AUTO) 1.3 x10^3/uL (0.3-0.8); MONOCYTES % (AUTO) 8.9 % (0.0-13.0); NEUTROPHILS # (AUTO) 12.1 x10^3/uL (2.2-4.8); NEUTROPHILS % (AUTO) 81.2 % (42.0-75.0); PLATELET COUNT 409 X10^3/uL (150.0-450.0); RED BLOOD COUNT 4.22 X10^6/uL (3.5-5.4); RED CELL DISTRIBUTION WIDTH 16.5 % (11.6-16.5); WHITE BLOOD COUNT 14.9 X10^3/uL (3.6-10.0)
[2018-09-26 03:46] LABS: ALANINE AMINOTRANSFERASE 27 Units/L (12-78); ALBUMIN 1.6 g/dL (3.4-5.0); ALKALINE PHOSPHATASE 462 Units/L (46-116); ASPARTATE AMINO TRANSFERASE 441 Units/L (15-37); BLOOD UREA NITROGEN 15 mg/dL (7-18); CALCIUM 8.8 mg/dL (8.5-10.1); CARBON DIOXIDE 21.5 mmol/L (21-32); CHLORIDE 105 mmol/L (98-107); COR CA(FOR HYPOALB) 10.7 mg/dL (8.5-10.1); CREATININE 0.96 mg/dL (0.55-1.02); SODIUM 138 mmol/L (136-145); eGFR NON BLACK RACES > 60 (>60)
[2018-09-26 03:52] LABS: PLATELET MORPHOLOGY COMMENT NORMAL (NORMAL)
--- NOTE | 2018-09-26 06:23 | CT ---
HISTORY: Right upper quadrant pain Study: CT abdomen pelvis with contrast Comparison: 08/28/2018 Technique: Axial post-contrast images with coronal and sagittal reformats. Dose reduction procedures were used with mA/kv adjusted for body size. Findings: Bilateral pleural effusions are present. The lung bases are clear with the exception of bibasilar atelectatic lung changes. Ascites is present increased when compared with the prior examination. Anasarca is present. The liver is enlarged and diffusely involved with metastatic disease which appears progressive when compared with the prior examination. The spleen, adrenal glands, and pancreas are within normal limits. No opaque stones are present within the gallbladder. The kidneys are unobstructed and without stones or masses. No ureteral calculi are identified. THERE IS A CAVAL FILTER PRESENT. The abdominal aorta is normal. No intraperitoneal or retroperitoneal lymphadenopathy is identified. There are no findings suggestive of diverticulitis or colitis. Examination of the pelvis demonstrated no evidence for pelvic masses, pelvic fluid, or pelvic lymphadenopathy. There is a Mcdonald catheter within the bladder. Once again noted is diffuse bony metastatic disease. IMPRESSION: Hepatomegaly with progressive hepatic metastatic disease Increasing ascites, pleural effusions, anasarca Diffuse bony metastatic disease Reported By:
[2018-09-26] MEDS ORDERED: LASIX IVP ONE ×2 (07:14→07:17)
[2018-09-26] MEDS ORDERED: MORPHINE SULFATE INJ 2 MG INJ IVP PRN (09:45)
[2018-09-26] MEDS ORDERED: RESTORIL CAP 15 MG PO PRN (09:47)
[2018-09-26] MEDS ORDERED: LETROZOLE 2.5 MG PO SCH (10:00)
[2018-09-26] MEDS ORDERED: PROTONIX INJ 40 MG VIAL IVP SCH (10:00)
[2018-09-26] MEDS ORDERED: PROTONIX TAB 40 MG PO SCH (10:00)
[2018-09-26] MEDS ORDERED: ZANTAC PO SCH (10:00)
[2018-09-26] MEDS ORDERED: ZOFRAN INJ 4 MG VIAL IVP PRN (11:15)
[2018-09-26] MEDS ORDERED: NS 250 ML IV 250 ML ONE (11:23)
[2018-09-26] MEDS ORDERED: LEXAPRO ONE (11:24)
[2018-09-26] MEDS: XARELTO PO SCH (11:32)
[2018-09-26] MEDS: SOLU-Medrol 40 MG VIAL IVP SCH ×3 (11:32→22:22)
[2018-09-26] MEDS: LIORESAL PO SCH ×4 (11:32→22:19)
[2018-09-26] MEDS: PERIACTIN TAB 4 MG PO SCH ×2 (11:32→22:20)
[2018-09-26] MEDS: LEXAPRO PO SCH (11:33)
[2018-09-26] MEDS: CLARITIN PO SCH (11:33)
[2018-09-26] MEDS: KLONOPIN TAB 0.5 MG PO SCH ×2 (11:45→22:19)
[2018-09-26] MEDS: PEPCID 20 MG IV PREMIX* 20 MG/50 ML BAG IV SCH ×2 (11:45→22:22)
[2018-09-26 14:55] LABS: BILIRUBIN,URINE 1+ (NEGATIVE); BLOOD/HEMOGLOBIN,URINE 5+ (NEGATIVE); GLUCOSE, URINE NEGATIVE (NEGATIVE); KETONES,URINE 1+ (NEGATIVE); LEUKOCYTE ESTERASE ,URINE 3+ (NEGATIVE); NITRITES,URINE NEGATIVE (NEGATIVE); PROTEIN,URINE 4+ (NEGATIVE); UROBILINOGEN,URINE 1+ (NORMAL)
[2018-09-26 15:14] LABS: APPEARANCE,URINE CLOUDY (CLEAR); COLOR,URINE YELLOW (YELLOW)
[2018-09-26 15:16] LABS: AMORPHOUS SEDIMENT,UR 3+ /HPF (NEGATIVE); BACTERIA,URINE NEGATIVE /HPF (NEGATIVE); MUCUS,URINE MODERATE /HPF (NEGATIVE); RBC,URINE 20-30 /HPF (NONE SEEN); SQUAMOUS EPITHELIAL CELL,UR NEGATIVE /HPF (NEGATIVE)
[2018-09-26] MEDS: NYSTATIN CREAM TOP SCH ×2 (18:43→22:21)
[2018-09-26] MEDS ORDERED: LIPITOR TAB 10 MG PO SCH (21:00)
[2018-09-26] MEDS: LASIX IVP SCH ×2 (22:19→22:27)
[2018-09-27 05:34] LABS: BASOPHILS # (AUTO) 0.1 X10^3/uL (0.0-0.1); BASOPHILS % (AUTO) 0.3 % (0.2-1.0); HEMATOCRIT 33.9 % (36.0-47.0); HEMOGLOBIN 10.6 g/dL (12.0-16.0); LYMPHOCYTES # (AUTO) 0.9 X10^3/uL (1.3-2.9); LYMPHOCYTES % (AUTO) 4.6 % (21.0-51.0); MEAN CORPUSCULAR HGB CONC 31.2 g/dL (33.0-35.0); MEAN CORPUSCULAR VOLUME 83.6 fL (80.0-100.0); MEAN PLATELET VOLUME 10.2 fL (7.4-11.0); MONOCYTES # (AUTO) 1.8 x10^3/uL (0.3-0.8); MONOCYTES % (AUTO) 9.3 % (0.0-13.0); NEUTROPHILS # (AUTO) 16.6 x10^3/uL (2.2-4.8); NEUTROPHILS % (AUTO) 85.8 % (42.0-75.0); PLATELET COUNT 336 X10^3/uL (150.0-450.0); RED BLOOD COUNT 4.06 X10^6/uL (3.5-5.4); RED CELL DISTRIBUTION WIDTH 16.5 % (11.6-16.5); WHITE BLOOD COUNT 19.4 X10^3/uL (3.6-10.0)
[2018-09-27] MEDS: SOLU-Medrol 40 MG VIAL IVP SCH (05:53)
[2018-09-27] MEDS: NYSTATIN CREAM TOP SCH (05:54)
[2018-09-27 05:55] LABS: ALBUMIN 1.7 g/dL (3.4-5.0); CALCIUM 8.3 mg/dL (8.5-10.1); CARBON DIOXIDE 20.3 mmol/L (21-32); COR CA(FOR HYPOALB) 10.1 mg/dL (8.5-10.1); CREATININE 1.29 mg/dL (0.55-1.02); TOTAL PROTEIN 6.3 g/dL (6.4-8.2)
[2018-09-27] MEDS ORDERED: LEXAPRO ONE (08:17)
[2018-09-27] MEDS: XARELTO PO SCH (08:31)
[2018-09-27] MEDS: KLONOPIN TAB 0.5 MG PO SCH (08:31)
[2018-09-27] MEDS: PEPCID 20 MG IV PREMIX* 20 MG/50 ML BAG IV SCH (08:31)
[2018-09-27] MEDS: LEXAPRO PO SCH (08:32)
[2018-09-27] MEDS: PERIACTIN TAB 4 MG PO SCH (08:32)
[2018-09-27] MEDS: LIORESAL PO SCH (08:32)
[2018-09-27] MEDS: CLARITIN PO SCH (08:32)
[2018-09-27] MEDS: LASIX IVP SCH (08:33)
[2018-09-27 10:41] VITALS: BP 159/83
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
[2018-09-27] MEDS ORDERED: AQUA-MEPHYTON ADULT INJ ONE (11:32)
[2018-09-27] MEDS ORDERED: ALDACTONE TAB 25 MG PO SCH (12:00)
== END 2018-09-27 01:30 | disposition expired | DRG 433 ==
LOC: ER 02:41 → MED/SURG 08:21
PROVIDERS: ADMIT Internal Medicine; ATTEND Internal Medicine
DX: G89.3 Neoplasm related pain (acute) (chronic); F32.89 Other specified depressive episodes; K70.31 Alcoholic cirrhosis of liver with ascites; E77.8 Other disorders of glycoprotein metabolism; R10.84 Generalized abdominal pain; C78.7 Secondary malignant neoplasm of liver and intrahepatic bile duct; Z66 Do not resuscitate; K21.9 Gastro-esophageal reflux disease without esophagitis; R60.1 Generalized edema; R41.82 Altered mental status, unspecified; C79.51 Secondary malignant neoplasm of bone; R53.1 Weakness; J90 Pleural effusion, not elsewhere classified; C50.919 Malignant neoplasm of unspecified site of unspecified female breast; I46.9 Cardiac arrest, cause unspecified
CPT/HCPCS: 36415; 74177; 80053; 81001; 82140; 85025; 85610; 85730; 94760; 96365; 96374; 96375; 99284; A4216; A4222; S0028; J1940; J2270; J2405; J2920